=== PATIENT | female | born 1965 | race Caucasian/White ===

== ENCOUNTER 2020-10-02 16:46 | Inpatient (IN) | payer OTHER ==
[2020-10-02] MEDS ORDERED: SODIUM CHLORIDE 0.9% 500 ML INFUS.BAG IV ONE (17:44)
[2020-10-02] MEDS ORDERED: VANCOMYCIN 1 GRAM (PRE-DOCKED) 1,000 MG/250 ML BAG IVPB ONE ×2 (17:46→18:27)
[2020-10-02] MEDS ORDERED: PIPERACILLIN/TAZOB 4.5 GM 4.5 GM in DEXTROSE 5%-WATER 100 ML IVPB ONE (18:00)
[2020-10-02] MEDS ORDERED: PIPERACILLIN/TAZOB 4.5 GM 4.5 GM/100 ML BAG IVPB ONE (18:27)
[2020-10-02] MEDS ORDERED: NOREPINEPHRINE BITARTRATE 16,000 MCG in SODIUM CHLORIDE 484 ML IV SCH (18:45)
[2020-10-02 19:40] LABS: BASO % 0.3 % (0-2.0); EOS % 1.2 % (0-4.5); HEMOGLOBIN 8.8 GM/dL (10.7-15.3); LYMPH % 13.7 % (8-40); MCH 30.4 pg (25.7-33.7); MCHC 31.4 g/dl (32.0-36.0); MEAN PLT VOLUME 8.6 fl (7.5-11.1); MONO % 9.6 % (3.8-10.2); NEUT % 75.2 % (42.8-82.8); PLATELET COUNT 234 K/MM3 (134-434); RBC 2.89 M/mm3 (3.60-5.2); RDW 17.9 % (11.6-15.6); WHITE BLOOD COUNT 11.5 K/mm3 (4.0-10.0)
[2020-10-02 19:47] LABS: INR 1.98 (0.83-1.09); PROTHROMBIN TIME (PATIENT) 23.5 SEC (9.7-13.0)
[2020-10-02 19:49] LABS: ACTIVATED PTT 33.6 SECONDS (25.2-36.5)
[2020-10-02 19:50] LABS: CHLORIDE 98 mmol/L (98-107); SODIUM 136 mmol/L (136-145)
[2020-10-02 19:53] LABS: CALCIUM 9.3 mg/dL (8.5-10.1)
[2020-10-02 19:54] LABS: ALBUMIN 2.1 g/dl (3.4-5.0); ANION GAP 3 MMOL/L (8-16); BLOOD UREA NITROGEN 29.9 mg/dL (7-18); CO2 35 mmol/L (21-32); GLUCOSE,RANDOM 103 mg/dL (74-106)
[2020-10-02 19:57] LABS: CREATININE 0.7 mg/dL (0.55-1.3); SGOT/AST 48 U/L (15-37); SGPT/ALT 35 U/L (13-61)
[2020-10-02 19:59] LABS: BILIRUBIN,TOTAL 0.9 mg/dL (0.2-1)
[2020-10-02 20:00] LABS: ALK PHOS 349 U/L (45-117)
[2020-10-02] MEDS ORDERED: FUROSEMIDE 40 MG/4 ML INJECTABLE VIAL IVPUSH ONE (20:59)
[2020-10-02] MEDS ORDERED: FUROSEMIDE 40 MG/4 ML INJECTABLE VIAL ONE (21:16)
[2020-10-02 22:03] LABS: PH,URINE 5.5 (5.0-8.0); URINE APPEARANCE TURBID; URINE BILIRUBIN NEGATIVE (NEGATIVE); URINE COLOR YELLOW; URINE GLUCOSE (UA) NEGATIVE (NEGATIVE); URINE KETONE NEGATIVE (NEGATIVE); URINE NITRITE NEGATIVE (NEGATIVE); URINE PROTEIN 100 (NEGATIVE); URINE UROBILINOGEN 0.2 mg/dL (0.2-1.0)
[2020-10-02 22:04] LABS: EPI CELLS 213.6 /uL (0-25.1); HYALINE CASTS 748.89 /uL (0-3.1); URINE LEUK ESTERASE 4+ (NEGATIVE); URINE RBC 655.8 /uL (0-23.9); URINE WBC 23269.8 /uL (0-25.8)
[2020-10-02] MEDS: ALBUMIN HUMAN 25% 12.5 GM/50 ML VIAL IVPB SCH (23:41)
[2020-10-03] MEDS: ALBUMIN HUMAN 25% 12.5 GM/50 ML VIAL IVPB SCH ×3 (00:25→01:04)
[2020-10-03] MEDS ORDERED: APIXABAN 5 MG TABLET ONE (00:37)
[2020-10-03] MEDS: APIXABAN 5 MG TABLET PO SCH ×3 (01:04→21:16)
[2020-10-03] MEDS ORDERED: PIPERACILLIN/TAZOB 4.5 GM 4.5 GM in DEXTROSE 5%-WATER 100 ML IVPB SCH (02:00)
[2020-10-03] MEDS ORDERED: NOREPINEPHRINE BITARTRATE 16,000 MCG in SODIUM CHLORIDE 484 ML IV SCH (02:00)
[2020-10-03] MEDS: MAG HYDROX/ALH/SMC/DPHA/LIDO 240 ML MOUTHWASH MM SCH ×4 (02:53→18:07)
[2020-10-03] MEDS ORDERED: LORazepam 2 MG/ML SDV VIAL IVPUSH ONE (03:16)
[2020-10-03] MEDS: NOREPINEPHRINE NS PREMIX 16,000 MCG/500 ML BAG IVPB SCH (03:17)
[2020-10-03] MEDS: INSULIN SLIDING SCALE (NOVOLOG) 1 VIAL SQ SCH ×3 (06:31→17:53)
[2020-10-03] MEDS ORDERED: DEXTROSE 50%-WATER - 25 GM/50 ML VIAL IVPUSH ONE (06:47)
[2020-10-03] MEDS ORDERED: DEXTROSE 50%-WATER 25 GM/50 ML DISP.SYRIN ONE (06:51)
[2020-10-03 07:43] LABS: BASO % 0.4 % (0-2.0); EOS % 1.6 % (0-4.5); HEMATOCRIT 26.6 % (32.4-45.2); HEMOGLOBIN 8.5 GM/dL (10.7-15.3); LYMPH % 16.3 % (8-40); MCH 30.5 pg (25.7-33.7); MCHC 32.2 g/dl (32.0-36.0); MEAN CELL VOLUME 94.8 fl (80-96); MEAN PLT VOLUME 8.8 fl (7.5-11.1); MONO % 8.2 % (3.8-10.2); NEUT % 73.5 % (42.8-82.8); PLATELET COUNT 286 K/MM3 (134-434); RDW 17.4 % (11.6-15.6); WHITE BLOOD COUNT 11.9 K/mm3 (4.0-10.0)
[2020-10-03 08:08] LABS: POTASSIUM 4.8 mmol/L (3.5-5.1)
[2020-10-03 08:11] LABS: ALBUMIN 2.9 g/dl (3.4-5.0); CALCIUM 9.6 mg/dL (8.5-10.1)
[2020-10-03 08:12] LABS: BLOOD UREA NITROGEN 33.2 mg/dL (7-18); MAGNESIUM 1.7 mg/dL (1.8-2.4)
[2020-10-03 08:15] LABS: PHOSPHOROUS 3.5 mg/dL (2.5-4.9)
[2020-10-03 08:16] LABS: BILIRUBIN,TOTAL 1.1 mg/dL (0.2-1); TOT PROT 6.2 g/dl (6.4-8.2)
[2020-10-03] MEDS ORDERED: PT OWN MED DRAWER 7, Y5N ONE ×5 (09:40→18:04)
[2020-10-03] MEDS ORDERED: VANCOMYCIN 1 GM in D5W (PRE-DOCKED) 1,000 MG/250 ML IVPB SCH (10:00)
[2020-10-03] MEDS: MUPIROCIN 2% TOPICAL OINTMENT FOR DECOLONIZATION NS SCH ×2 (10:56→21:16)
[2020-10-03] MEDS: ALBUTEROL SO4 2.5/IPRATROPIUM 0.5 INH SOL 3 ML VIAL.NEB. NEB SCH ×2 (12:36→15:01)
[2020-10-03] MEDS: FOLIC ACID 1 MG TABLET (FP) GT SCH (13:11)
[2020-10-03] MEDS: LEVOTHYROXINE NA 25 MCG TABLET (FP) PO SCH (13:11)
[2020-10-03] MEDS: FERROUS SO4 300 MG/5 ML ORAL SOLN UNIT DOSE CUPS GT SCH ×2 (13:22→21:16)
[2020-10-03] MEDS: FAMOTIDINE 40 MG/5 ML ORAL SUSPENSION PEG SCH (13:23)
[2020-10-03] MEDS: GABAPENTIN 250 MG/5 ML ORAL SOLUTION, 470 ML BOTTLE PO SCH ×2 (13:45→21:33)
[2020-10-03] MEDS: VANCOMYCIN 1 GRAM (PRE-DOCKED) 1,000 MG/250 ML BAG IVPB SCH (14:15)
[2020-10-03] MEDS: MIDAZOLAM 100 MG/100 ML MG IVPB SCH (14:42)
[2020-10-03] MEDS: CEFTAZIDIME PENTAHYDRATE 1 GM in DEXTROSE 5%-WATER - 50 ML IVPB SCH ×2 (16:06→22:55)
[2020-10-03] MEDS ORDERED: DEXTROSE 5%-0.45% SALINE 1,000 ML IV SCH (17:30)
[2020-10-03] MEDS: MIDODRINE HCL 2.5 MG TABLET PO SCH (17:57)
[2020-10-03] MEDS: QUEtiapine FUMARATE 25 MG TABLET PO SCH (21:16)
[2020-10-03] MEDS: AMANTADINE HCL 100 MG TABLET PO SCH (21:17)
[2020-10-03] MEDS: CHLORHEXIDINE GLUCONATE 4% CLEANSER FOR DECOLONIZATION TP SCH (21:33)
[2020-10-03] MEDS: PIPERACILLIN/TAZOB 4.5 GM 4.5 GM in DEXTROSE 5%-WATER 100 ML IVPB SCH ×2 (22:55→22:56)
[2020-10-04] MEDS: VANCOMYCIN 1 GRAM (PRE-DOCKED) 1,000 MG/250 ML BAG IVPB SCH ×2 (01:11→14:15)
[2020-10-04] MEDS: CEFTAZIDIME PENTAHYDRATE 1 GM in DEXTROSE 5%-WATER - 50 ML IVPB SCH ×3 (01:11→17:04)
[2020-10-04] MEDS: MAG HYDROX/ALH/SMC/DPHA/LIDO 240 ML MOUTHWASH MM SCH ×4 (01:17→17:05)
[2020-10-04] MEDS: NOREPINEPHRINE NS PREMIX 16,000 MCG/500 ML BAG IVPB SCH (03:00)
[2020-10-04] MEDS: INSULIN SLIDING SCALE (NOVOLOG) 1 VIAL SQ SCH ×3 (06:24→16:42)
[2020-10-04] MEDS: LEVOTHYROXINE NA 25 MCG TABLET (FP) PO SCH (06:24)
[2020-10-04 07:32] LABS: BASO % 0.3 % (0-2.0); EOS % 3.1 % (0-4.5); HEMATOCRIT 29.1 % (32.4-45.2); HEMOGLOBIN 9.3 GM/dL (10.7-15.3); LYMPH % 14.2 % (8-40); MCH 30.2 pg (25.7-33.7); MEAN CELL VOLUME 94.4 fl (80-96); MONO % 9.9 % (3.8-10.2); NEUT % 72.5 % (42.8-82.8); PLATELET COUNT 350 K/MM3 (134-434); RBC 3.09 M/mm3 (3.60-5.2); RDW 17.3 % (11.6-15.6); WHITE BLOOD COUNT 11.7 K/mm3 (4.0-10.0)
[2020-10-04 08:00] LABS: POTASSIUM 4.3 mmol/L (3.5-5.1)
[2020-10-04] MEDS: ALBUTEROL SO4 2.5/IPRATROPIUM 0.5 INH SOL 3 ML VIAL.NEB. NEB SCH ×4 (08:00→20:30)
[2020-10-04 08:10] LABS: CALCIUM 9.3 mg/dL (8.5-10.1)
[2020-10-04 08:11] LABS: ALBUMIN 2.6 g/dl (3.4-5.0); BLOOD UREA NITROGEN 37.8 mg/dL (7-18); MAGNESIUM 1.9 mg/dL (1.8-2.4)
[2020-10-04 08:14] LABS: CREATININE 1.3 mg/dL (0.55-1.3); PHOSPHOROUS 4.2 mg/dL (2.5-4.9)
[2020-10-04 08:15] LABS: BILIRUBIN,TOTAL 1.2 mg/dL (0.2-1); TOT PROT 6.1 g/dl (6.4-8.2)
[2020-10-04] MEDS ORDERED: PT OWN MED DRAWER 7, Y5N ONE ×2 (10:07→16:53)
[2020-10-04] MEDS: FOLIC ACID 1 MG TABLET (FP) GT SCH (10:35)
[2020-10-04] MEDS: FERROUS SO4 300 MG/5 ML ORAL SOLN UNIT DOSE CUPS GT SCH ×2 (10:35→21:26)
[2020-10-04] MEDS: MIDODRINE HCL 2.5 MG TABLET PO SCH (10:35)
[2020-10-04] MEDS: APIXABAN 5 MG TABLET PO SCH ×2 (10:35→21:26)
[2020-10-04] MEDS: FAMOTIDINE 40 MG/5 ML ORAL SUSPENSION PEG SCH (10:35)
[2020-10-04] MEDS: MUPIROCIN 2% TOPICAL OINTMENT FOR DECOLONIZATION NS SCH ×2 (10:36→21:25)
[2020-10-04] MEDS: AMANTADINE HCL 100 MG TABLET PO SCH ×2 (10:36→21:27)
[2020-10-04] MEDS: GABAPENTIN 250 MG/5 ML ORAL SOLUTION, 470 ML BOTTLE PO SCH ×2 (10:48→21:26)
[2020-10-04] MEDS: BANATROL PLUS POWDER PACKET PO SCH ×2 (15:30→21:25)
[2020-10-04] MEDS: MIDODRINE HCL 5 MG TABLET PO SCH ×2 (15:30→17:05)
[2020-10-04] MEDS: MIDAZOLAM 100 MG/100 ML MG IVPB SCH (19:15)
[2020-10-04] MEDS: CHLORHEXIDINE GLUCONATE 4% CLEANSER FOR DECOLONIZATION TP SCH (21:25)
[2020-10-04] MEDS: QUEtiapine FUMARATE 25 MG TABLET PO SCH (21:26)
[2020-10-05] MEDS: MAG HYDROX/ALH/SMC/DPHA/LIDO 240 ML MOUTHWASH MM SCH ×4 (00:06→17:51)
[2020-10-05] MEDS: VANCOMYCIN 1 GRAM (PRE-DOCKED) 1,000 MG/250 ML BAG IVPB SCH ×2 (00:07→13:07)
[2020-10-05] MEDS: CEFTAZIDIME PENTAHYDRATE 1 GM in DEXTROSE 5%-WATER - 50 ML IVPB SCH ×3 (01:55→17:51)
[2020-10-05] MEDS: LEVOTHYROXINE NA 25 MCG TABLET (FP) PO SCH (06:12)
[2020-10-05] MEDS: BANATROL PLUS POWDER PACKET PO SCH ×3 (06:12→21:46)
[2020-10-05] MEDS: INSULIN SLIDING SCALE (NOVOLOG) 1 VIAL SQ SCH ×3 (06:13→17:46)
[2020-10-05 07:15] LABS: BASO % 0.3 % (0-2.0); EOS % 7.2 % (0-4.5); HEMOGLOBIN 8.8 GM/dL (10.7-15.3); LYMPH % 13.7 % (8-40); MCH 31.2 pg (25.7-33.7); MCHC 33.7 g/dl (32.0-36.0); MEAN CELL VOLUME 92.6 fl (80-96); MEAN PLT VOLUME 8.8 fl (7.5-11.1); MONO % 9.5 % (3.8-10.2); NEUT % 69.3 % (42.8-82.8); PLATELET COUNT 290 K/MM3 (134-434); RDW 17.5 % (11.6-15.6); WHITE BLOOD COUNT 7.7 K/mm3 (4.0-10.0)
[2020-10-05 07:53] LABS: POTASSIUM 3.9 mmol/L (3.5-5.1)
[2020-10-05 07:55] LABS: CALCIUM 8.2 mg/dL (8.5-10.1)
[2020-10-05 07:56] LABS: BLOOD UREA NITROGEN 36.6 mg/dL (7-18); MAGNESIUM 1.6 mg/dL (1.8-2.4)
[2020-10-05 07:59] LABS: CREATININE 1.3 mg/dL (0.55-1.3); PHOSPHOROUS 3.9 mg/dL (2.5-4.9)
[2020-10-05 08:00] LABS: BILIRUBIN,TOTAL 0.7 mg/dL (0.2-1)
[2020-10-05] MEDS: ALBUTEROL SO4 2.5/IPRATROPIUM 0.5 INH SOL 3 ML VIAL.NEB. NEB SCH ×4 (08:00→21:28)
[2020-10-05 08:01] LABS: TOT PROT 5.2 g/dl (6.4-8.2)
[2020-10-05] MEDS: NOREPINEPHRINE NS PREMIX 16,000 MCG/500 ML BAG IVPB SCH (09:13)
[2020-10-05] MEDS ORDERED: PT OWN MED DRAWER 7, Y5N ONE ×3 (09:18→17:47)
[2020-10-05] MEDS: FAMOTIDINE 40 MG/5 ML ORAL SUSPENSION PEG SCH (09:22)
[2020-10-05] MEDS: MIDODRINE HCL 5 MG TABLET PO SCH ×3 (09:22→17:51)
[2020-10-05] MEDS: APIXABAN 5 MG TABLET PO SCH ×2 (09:22→21:46)
[2020-10-05] MEDS: FOLIC ACID 1 MG TABLET (FP) GT SCH (09:22)
[2020-10-05] MEDS: AMANTADINE HCL 100 MG TABLET PO SCH ×2 (09:23→21:46)
[2020-10-05] MEDS: FERROUS SO4 300 MG/5 ML ORAL SOLN UNIT DOSE CUPS GT SCH ×2 (09:23→21:46)
[2020-10-05] MEDS: MUPIROCIN 2% TOPICAL OINTMENT FOR DECOLONIZATION NS SCH ×2 (09:23→21:27)
[2020-10-05] MEDS: GABAPENTIN 250 MG/5 ML ORAL SOLUTION, 470 ML BOTTLE PO SCH ×2 (09:27→21:45)
[2020-10-05] MEDS: MIDAZOLAM 100 MG/100 ML MG IVPB SCH (16:16)
[2020-10-05] MEDS: CHLORHEXIDINE GLUCONATE 4% CLEANSER FOR DECOLONIZATION TP SCH (21:27)
[2020-10-05] MEDS: QUEtiapine FUMARATE 25 MG TABLET PO SCH (21:45)
[2020-10-06] MEDS: NOREPINEPHRINE NS PREMIX 16,000 MCG/500 ML BAG IVPB SCH
[2020-10-06] MEDS: VANCOMYCIN 1 GRAM (PRE-DOCKED) 1,000 MG/250 ML BAG IVPB SCH ×2 (00:08→21:04)
[2020-10-06] MEDS: MAG HYDROX/ALH/SMC/DPHA/LIDO 240 ML MOUTHWASH MM SCH ×4 (00:08→17:38)
[2020-10-06] MEDS: CEFTAZIDIME PENTAHYDRATE 1 GM in DEXTROSE 5%-WATER - 50 ML IVPB SCH ×3 (01:10→21:04)
[2020-10-06] MEDS: BANATROL PLUS POWDER PACKET PO SCH ×3 (05:31→21:02)
[2020-10-06] MEDS: LEVOTHYROXINE NA 25 MCG TABLET (FP) PO SCH (06:24)
[2020-10-06] MEDS: INSULIN SLIDING SCALE (NOVOLOG) 1 VIAL SQ SCH ×3 (06:24→17:05)
[2020-10-06 07:40] LABS: BASO % 0.3 % (0-2.0); EOS % 7.5 % (0-4.5); HEMATOCRIT 25.9 % (32.4-45.2); HEMOGLOBIN 8.6 GM/dL (10.7-15.3); LYMPH % 10.6 % (8-40); MCH 30.7 pg (25.7-33.7); MCHC 33.1 g/dl (32.0-36.0); MEAN CELL VOLUME 92.9 fl (80-96); MEAN PLT VOLUME 9.2 fl (7.5-11.1); MONO % 10.4 % (3.8-10.2); NEUT % 71.2 % (42.8-82.8); PLATELET COUNT 335 K/MM3 (134-434); RBC 2.79 M/mm3 (3.60-5.2); RDW 17.1 % (11.6-15.6); WHITE BLOOD COUNT 10.2 K/mm3 (4.0-10.0)
[2020-10-06 08:00] LABS: POTASSIUM 4.1 mmol/L (3.5-5.1)
[2020-10-06 08:05] LABS: ALBUMIN 1.9 g/dl (3.4-5.0); BLOOD UREA NITROGEN 38.5 mg/dL (7-18); CALCIUM 8.5 mg/dL (8.5-10.1)
[2020-10-06 08:08] LABS: CREATININE 1.3 mg/dL (0.55-1.3)
[2020-10-06] MEDS: ALBUTEROL SO4 2.5/IPRATROPIUM 0.5 INH SOL 3 ML VIAL.NEB. NEB SCH ×4 (08:08→20:00)
[2020-10-06 08:10] LABS: BILIRUBIN,TOTAL 1.6 mg/dL (0.2-1); TOT PROT 5.3 g/dl (6.4-8.2)
[2020-10-06] MEDS ORDERED: PT OWN MED DRAWER 7, Y5N ONE ×7 (10:29→20:47)
[2020-10-06] MEDS: AMANTADINE HCL 100 MG TABLET PO SCH ×2 (10:45→21:03)
[2020-10-06] MEDS: APIXABAN 5 MG TABLET PO SCH ×2 (10:47→21:02)
[2020-10-06] MEDS: FERROUS SO4 300 MG/5 ML ORAL SOLN UNIT DOSE CUPS GT SCH ×2 (10:47→21:03)
[2020-10-06] MEDS: FOLIC ACID 1 MG TABLET (FP) GT SCH (10:47)
[2020-10-06] MEDS: MIDODRINE HCL 5 MG TABLET PO SCH ×3 (10:48→17:37)
[2020-10-06] MEDS: GABAPENTIN 250 MG/5 ML ORAL SOLUTION, 470 ML BOTTLE PO SCH ×2 (10:52→21:06)
[2020-10-06] MEDS ORDERED: SODIUM CHLORIDE 1,000 ML IV STA (11:13)
[2020-10-06] MEDS: FAMOTIDINE 40 MG/5 ML ORAL SUSPENSION PEG SCH (14:41)
[2020-10-06] MEDS: MIDAZOLAM 100 MG/100 ML MG IVPB SCH (14:43)
[2020-10-06] MEDS: MUPIROCIN 2% TOPICAL OINTMENT FOR DECOLONIZATION NS SCH ×2 (14:47→21:04)
[2020-10-06] MEDS: QUEtiapine FUMARATE 25 MG TABLET PO SCH (21:02)
[2020-10-06] MEDS: CHLORHEXIDINE GLUCONATE 4% CLEANSER FOR DECOLONIZATION TP SCH (21:03)
[2020-10-06] MEDS: CHOLESTYRAMINE/ASPARTAME 4 GM PACKET PO SCH (21:03)
[2020-10-07] MEDS: MAG HYDROX/ALH/SMC/DPHA/LIDO 240 ML MOUTHWASH MM SCH ×5 (01:06→23:43)
[2020-10-07] MEDS: CEFTAZIDIME PENTAHYDRATE 1 GM in DEXTROSE 5%-WATER - 50 ML IVPB SCH ×3 (01:09→18:45)
[2020-10-07] MEDS: NOREPINEPHRINE NS PREMIX 16,000 MCG/500 ML BAG IVPB SCH (03:45)
[2020-10-07] MEDS: BANATROL PLUS POWDER PACKET PO SCH ×3 (05:07→22:38)
[2020-10-07] MEDS: INSULIN SLIDING SCALE (NOVOLOG) 1 VIAL SQ SCH ×3 (06:07→18:57)
[2020-10-07] MEDS: LEVOTHYROXINE NA 25 MCG TABLET (FP) PO SCH (06:07)
[2020-10-07 06:59] LABS: BASO % 0.2 % (0-2.0); EOS % 6.9 % (0-4.5); HEMATOCRIT 24.7 % (32.4-45.2); HEMOGLOBIN 7.9 GM/dL (10.7-15.3); LYMPH % 11.7 % (8-40); MCH 30.5 pg (25.7-33.7); MCHC 32.1 g/dl (32.0-36.0); MEAN PLT VOLUME 9.1 fl (7.5-11.1); NEUT % 70.2 % (42.8-82.8); PLATELET COUNT 300 K/MM3 (134-434); RDW 17.8 % (11.6-15.6); WHITE BLOOD COUNT 8.9 K/mm3 (4.0-10.0)
[2020-10-07 07:50] LABS: POTASSIUM 4.5 mmol/L (3.5-5.1)
[2020-10-07 08:25] LABS: ALBUMIN 2.1 g/dl (3.4-5.0); CALCIUM 9.1 mg/dL (8.5-10.1)
[2020-10-07 08:26] LABS: BLOOD UREA NITROGEN 38.6 mg/dL (7-18); MAGNESIUM 1.9 mg/dL (1.8-2.4)
[2020-10-07 08:28] LABS: CREATININE 1.4 mg/dL (0.55-1.3); PHOSPHOROUS 4.8 mg/dL (2.5-4.9)
[2020-10-07 08:29] LABS: BILIRUBIN,TOTAL 0.5 mg/dL (0.2-1); TOT PROT 5.9 g/dl (6.4-8.2)
[2020-10-07] MEDS ORDERED: PT OWN MED DRAWER 7, Y5N ONE ×5 (08:29→22:31)
[2020-10-07] MEDS: ALBUTEROL SO4 2.5/IPRATROPIUM 0.5 INH SOL 3 ML VIAL.NEB. NEB SCH ×4 (08:44→20:10)
[2020-10-07] MEDS: AMANTADINE HCL 100 MG TABLET PO SCH ×2 (09:53→22:40)
[2020-10-07] MEDS: MIDODRINE HCL 5 MG TABLET PO SCH ×3 (09:53→18:45)
[2020-10-07] MEDS: FERROUS SO4 300 MG/5 ML ORAL SOLN UNIT DOSE CUPS GT SCH ×2 (09:53→22:39)
[2020-10-07] MEDS: APIXABAN 5 MG TABLET PO SCH ×2 (09:53→22:39)
[2020-10-07] MEDS: CHOLESTYRAMINE/ASPARTAME 4 GM PACKET PO SCH (09:53)
[2020-10-07] MEDS: FOLIC ACID 1 MG TABLET (FP) GT SCH (09:53)
[2020-10-07] MEDS: GABAPENTIN 250 MG/5 ML ORAL SOLUTION, 470 ML BOTTLE PO SCH ×2 (09:54→22:39)
[2020-10-07] MEDS: MUPIROCIN 2% TOPICAL OINTMENT FOR DECOLONIZATION NS SCH ×2 (09:55→22:38)
[2020-10-07] MEDS: FAMOTIDINE 40 MG/5 ML ORAL SUSPENSION PEG SCH (09:55)
[2020-10-07] MEDS ORDERED: MAGNESIUM 1GM/D5W 100ML - 100 ML IVPB IVPB ONE (13:45)
[2020-10-07] MEDS ORDERED: ALBUMIN HUMAN 25% 12.5 GM/50 ML VIAL IVPB SCH (17:00)
[2020-10-07] MEDS ORDERED: ALBUMIN HUMAN 25% 100 ML VIAL IVPB ONE (18:30)
[2020-10-07] MEDS: MIDAZOLAM 100 MG/100 ML MG IVPB SCH (20:00)
[2020-10-07] MEDS ORDERED: FUROSEMIDE 40 MG/4 ML INJECTABLE VIAL IVPUSH ONE (20:22)
[2020-10-07 21:49] LABS: EPI CELLS 4 /uL (0-25.1); HYALINE CASTS 2 /uL (0-3.1); PH,URINE 5.5 (5.0-8.0); URINE APPEARANCE TURBID; URINE BACTERIA 133 /uL (0-1359); URINE BILIRUBIN NEGATIVE (NEGATIVE); URINE COLOR YELLOW; URINE GLUCOSE (UA) NEGATIVE (NEGATIVE); URINE KETONE NEGATIVE (NEGATIVE); URINE LEUK ESTERASE 3+ (NEGATIVE); URINE NITRITE NEGATIVE (NEGATIVE); URINE PROTEIN 1+ (NEGATIVE); URINE RBC 10 /uL (0-23.9); URINE UROBILINOGEN 0.2 mg/dL (0.2-1.0); URINE WBC 850 /uL (0-25.8)
[2020-10-07] MEDS: QUEtiapine FUMARATE 25 MG TABLET PO SCH (22:39)
[2020-10-07] MEDS: CHLORHEXIDINE GLUCONATE 4% CLEANSER FOR DECOLONIZATION TP SCH (22:39)
[2020-10-08] MEDS ORDERED: ACETAMINOPHEN 1000 MG/100 ML VIAL (NON FORMULARY) IVPB ONE (01:31)
[2020-10-08] MEDS: CEFTAZIDIME PENTAHYDRATE 1 GM in DEXTROSE 5%-WATER - 50 ML IVPB SCH ×3 (02:53→17:23)
[2020-10-08] MEDS ORDERED: SODIUM CHLORIDE 500 ML IV STA ×2 (05:04→11:31)
[2020-10-08] MEDS: LEVOTHYROXINE NA 25 MCG TABLET (FP) PO SCH (06:17)
[2020-10-08] MEDS: BANATROL PLUS POWDER PACKET PO SCH ×3 (06:17→21:16)
[2020-10-08] MEDS: MAG HYDROX/ALH/SMC/DPHA/LIDO 240 ML MOUTHWASH MM SCH ×4 (06:17→17:34)
[2020-10-08 07:21] LABS: BASO % 0.4 % (0-2.0); EOS % 3.1 % (0-4.5); HEMATOCRIT 20.9 % (32.4-45.2); LYMPH % 12.1 % (8-40); MCH 30.5 pg (25.7-33.7); MCHC 32.5 g/dl (32.0-36.0); MEAN CELL VOLUME 93.9 fl (80-96); MONO % 14.4 % (3.8-10.2); PLATELET COUNT 302 K/MM3 (134-434); RBC 2.22 M/mm3 (3.60-5.2); RDW 17.5 % (11.6-15.6); WHITE BLOOD COUNT 11.6 K/mm3 (4.0-10.0)
[2020-10-08 07:33] LABS: POTASSIUM 4.6 mmol/L (3.5-5.1)
[2020-10-08 07:40] LABS: CALCIUM 9.1 mg/dL (8.5-10.1)
[2020-10-08 07:41] LABS: ALBUMIN 2.2 g/dl (3.4-5.0); BLOOD UREA NITROGEN 42.5 mg/dL (7-18)
[2020-10-08 07:44] LABS: CREATININE 1.5 mg/dL (0.55-1.3)
[2020-10-08 07:45] LABS: BILIRUBIN,TOTAL 0.6 mg/dL (0.2-1)
[2020-10-08 07:46] LABS: TOT PROT 5.6 g/dl (6.4-8.2)
[2020-10-08] MEDS: INSULIN SLIDING SCALE (NOVOLOG) 1 VIAL SQ SCH ×3 (07:47→17:18)
[2020-10-08] MEDS: ALBUTEROL SO4 2.5/IPRATROPIUM 0.5 INH SOL 3 ML VIAL.NEB. NEB SCH ×4 (08:45→20:25)
[2020-10-08 08:46] LABS: HEMOGLOBIN 6.8 GM/dL (10.7-15.3)
[2020-10-08] MEDS ORDERED: PT OWN MED DRAWER 7, Y5N ONE ×4 (09:37→21:26)
[2020-10-08] MEDS: APIXABAN 5 MG TABLET PO SCH (09:38)
[2020-10-08] MEDS: FOLIC ACID 1 MG TABLET (FP) GT SCH (09:39)
[2020-10-08] MEDS: FERROUS SO4 300 MG/5 ML ORAL SOLN UNIT DOSE CUPS GT SCH ×2 (09:39→21:17)
[2020-10-08] MEDS: FAMOTIDINE 40 MG/5 ML ORAL SUSPENSION PEG SCH (09:42)
[2020-10-08] MEDS: MIDODRINE HCL 5 MG TABLET PO SCH ×3 (09:43→17:24)
[2020-10-08] MEDS: AMANTADINE HCL 100 MG TABLET PO SCH ×2 (09:43→21:17)
[2020-10-08] MEDS ORDERED: FUROSEMIDE 40 MG/4 ML INJECTABLE VIAL IVPUSH SCH (10:00)
[2020-10-08] MEDS ORDERED: ENOXAPARIN NA (PORCINE) 40 MG/0.4 ML DISP.SYRIN SQ ONE (11:32)
[2020-10-08] MEDS: GABAPENTIN 250 MG/5 ML ORAL SOLUTION, 470 ML BOTTLE PO SCH ×2 (13:18→21:18)
[2020-10-08 14:45] VITALS: BMI 25.4
[2020-10-08 20:07] LABS: HEP B CORE AB, TOT Negative (Negative)
[2020-10-08] MEDS: QUEtiapine FUMARATE 25 MG TABLET PO SCH (21:17)
[2020-10-08] MEDS: CHLORHEXIDINE GLUCONATE 4% CLEANSER FOR DECOLONIZATION TP SCH (21:17)
[2020-10-09] MEDS: MAG HYDROX/ALH/SMC/DPHA/LIDO 240 ML MOUTHWASH MM SCH ×4 (00:33→17:53)
[2020-10-09] MEDS: NYSTATIN 100,000 UNIT/GM TOPICAL CREAM 15 GM TUBE TP SCH ×4 (00:33→17:53)
[2020-10-09] MEDS ORDERED: HALOPERIDOL LACTATE 5 MG/ML IM ONE (01:30)
[2020-10-09] MEDS: BANATROL PLUS POWDER PACKET PO SCH ×2 (05:31→13:17)
[2020-10-09] MEDS: LEVOTHYROXINE NA 25 MCG TABLET (FP) PO SCH (06:22)
[2020-10-09] MEDS: INSULIN SLIDING SCALE (NOVOLOG) 1 VIAL SQ SCH ×3 (06:22→16:59)
[2020-10-09 07:32] LABS: BASO % 0.3 % (0-2.0); EOS % 6.9 % (0-4.5); HEMATOCRIT 30.7 % (32.4-45.2); HEMOGLOBIN 10.2 GM/dL (10.7-15.3); LYMPH % 10.1 % (8-40); MCH 30.5 pg (25.7-33.7); MCHC 33.4 g/dl (32.0-36.0); MEAN CELL VOLUME 91.5 fl (80-96); MEAN PLT VOLUME 8.9 fl (7.5-11.1); MONO % 15.3 % (3.8-10.2); NEUT % 67.4 % (42.8-82.8); PLATELET COUNT 332 K/MM3 (134-434); RBC 3.35 M/mm3 (3.60-5.2); RDW 16.6 % (11.6-15.6); WHITE BLOOD COUNT 9.2 K/mm3 (4.0-10.0)
[2020-10-09 07:45] LABS: POTASSIUM 5.1 mmol/L (3.5-5.1)
[2020-10-09 07:47] LABS: CALCIUM 9.6 mg/dL (8.5-10.1)
[2020-10-09 07:48] LABS: ALBUMIN 2.2 g/dl (3.4-5.0); BLOOD UREA NITROGEN 46.1 mg/dL (7-18)
[2020-10-09 07:50] LABS: CREATININE 1.6 mg/dL (0.55-1.3)
[2020-10-09 07:52] LABS: BILIRUBIN,TOTAL 0.6 mg/dL (0.2-1); TOT PROT 6.2 g/dl (6.4-8.2)
[2020-10-09] MEDS ORDERED: PT OWN MED DRAWER 7, Y5N ONE ×3 (09:46→23:10)
[2020-10-09] MEDS: FOLIC ACID 1 MG TABLET (FP) GT SCH (09:47)
[2020-10-09] MEDS: GABAPENTIN 250 MG/5 ML ORAL SOLUTION, 470 ML BOTTLE PO SCH ×2 (09:47→23:03)
[2020-10-09] MEDS: FERROUS SO4 300 MG/5 ML ORAL SOLN UNIT DOSE CUPS GT SCH ×2 (09:47→23:02)
[2020-10-09] MEDS: AMANTADINE HCL 100 MG TABLET PO SCH ×2 (09:48→23:06)
[2020-10-09] MEDS: FAMOTIDINE 40 MG/5 ML ORAL SUSPENSION PEG SCH (09:48)
[2020-10-09] MEDS: MIDODRINE HCL 5 MG TABLET PO SCH ×3 (09:50→23:02)
[2020-10-09 11:39] LABS: MAGNESIUM 2.3 mg/dL (1.8-2.4)
[2020-10-09] MEDS: ALBUTEROL SO4 2.5/IPRATROPIUM 0.5 INH SOL 3 ML VIAL.NEB. NEB SCH (20:37)
[2020-10-09] MEDS ORDERED: APIXABAN 5 MG TABLET PO SCH (22:00)
[2020-10-09] MEDS ORDERED: BANATROL PLUS POWDER PACKET PO SCH (22:00)
[2020-10-09] MEDS ORDERED: CHLORHEXIDINE GLUCONATE 4% CLEANSER FOR DECOLONIZATION TP SCH (22:00)
[2020-10-09] MEDS: APIXABAN 5 MG TABLET PO SCH (23:02)
[2020-10-09] MEDS: QUEtiapine FUMARATE 25 MG TABLET PO SCH (23:04)
[2020-10-10] MEDS: MAG HYDROX/ALH/SMC/DPHA/LIDO 240 ML MOUTHWASH MM SCH ×6 (00:04→23:40)
[2020-10-10] MEDS: NYSTATIN 100,000 UNIT/GM TOPICAL CREAM 15 GM TUBE TP SCH ×5 (00:05→23:40)
[2020-10-10] MEDS ORDERED: VANCOMYCIN 1 GRAM (PRE-DOCKED) 1,000 MG/250 ML BAG IVPB SCH (01:00)
[2020-10-10] MEDS: INSULIN SLIDING SCALE (NOVOLOG) 1 VIAL SQ SCH ×3 (07:09→18:56)
[2020-10-10] MEDS: LEVOTHYROXINE NA 25 MCG TABLET (FP) PO SCH (07:09)
[2020-10-10] MEDS: ALBUTEROL SO4 2.5/IPRATROPIUM 0.5 INH SOL 3 ML VIAL.NEB. NEB SCH ×4 (08:35→20:18)
[2020-10-10 08:51] LABS: BASO % 0.6 % (0-2.0); EOS % 6.4 % (0-4.5); HEMATOCRIT 29.5 % (32.4-45.2); HEMOGLOBIN 9.8 GM/dL (10.7-15.3); LYMPH % 14.9 % (8-40); MCH 30.2 pg (25.7-33.7); MCHC 33.2 g/dl (32.0-36.0); MEAN PLT VOLUME 8.5 fl (7.5-11.1); MONO % 18.4 % (3.8-10.2); NEUT % 59.7 % (42.8-82.8); PLATELET COUNT 397 K/MM3 (134-434); RBC 3.25 M/mm3 (3.60-5.2); RDW 16.9 % (11.6-15.6); WHITE BLOOD COUNT 8.4 K/mm3 (4.0-10.0)
[2020-10-10 09:08] LABS: POTASSIUM 5.3 mmol/L (3.5-5.1)
[2020-10-10 09:19] LABS: BLOOD UREA NITROGEN 50.5 mg/dL (7-18); CALCIUM 10.4 mg/dL (8.5-10.1)
[2020-10-10 09:20] LABS: ALBUMIN 2.1 g/dl (3.4-5.0); CREATININE 1.8 mg/dL (0.55-1.3); TOT PROT 6.2 g/dl (6.4-8.2)
[2020-10-10 09:21] LABS: BILIRUBIN,TOTAL 0.5 mg/dL (0.2-1)
[2020-10-10] MEDS ORDERED: FAMOTIDINE 40 MG/5 ML ORAL SUSPENSION PEG SCH (10:00)
[2020-10-10] MEDS ORDERED: PT OWN MED DRAWER 7, Y5N ONE ×3 (11:40→23:34)
[2020-10-10] MEDS: FERROUS SO4 300 MG/5 ML ORAL SOLN UNIT DOSE CUPS GT SCH ×2 (11:57→23:37)
[2020-10-10] MEDS: FOLIC ACID 1 MG TABLET (FP) GT SCH (11:57)
[2020-10-10] MEDS: MIDODRINE HCL 5 MG TABLET PO SCH ×3 (11:57→18:58)
[2020-10-10] MEDS: AMANTADINE HCL 100 MG TABLET PO SCH ×2 (12:03→23:38)
[2020-10-10] MEDS: FAMOTIDINE 40 MG/5 ML ORAL SUSPENSION PEG SCH (12:03)
[2020-10-10] MEDS: APIXABAN 5 MG TABLET PO SCH ×2 (12:03→23:37)
[2020-10-10] MEDS: GABAPENTIN 250 MG/5 ML ORAL SOLUTION, 470 ML BOTTLE PO SCH ×2 (12:05→23:37)
[2020-10-10] MEDS: FUROSEMIDE 40 MG TABLET (FP) GT SCH (15:14)
[2020-10-10] MEDS: QUEtiapine FUMARATE 25 MG TABLET PO SCH (23:38)
[2020-10-11] MEDS: LEVOTHYROXINE NA 25 MCG TABLET (FP) PO SCH (06:08)
[2020-10-11] MEDS: MAG HYDROX/ALH/SMC/DPHA/LIDO 240 ML MOUTHWASH MM SCH ×2 (06:08→11:28)
[2020-10-11] MEDS: NYSTATIN 100,000 UNIT/GM TOPICAL CREAM 15 GM TUBE TP SCH ×3 (06:08→18:30)
[2020-10-11] MEDS: INSULIN SLIDING SCALE (NOVOLOG) 1 VIAL SQ SCH ×3 (06:58→18:44)
[2020-10-11] MEDS: ALBUTEROL SO4 2.5/IPRATROPIUM 0.5 INH SOL 3 ML VIAL.NEB. NEB SCH ×4 (07:40→20:45)
[2020-10-11 08:59] LABS: BASO % 0.4 % (0-2.0); EOS % 7.4 % (0-4.5); HEMATOCRIT 29.3 % (32.4-45.2); HEMOGLOBIN 9.5 GM/dL (10.7-15.3); LYMPH % 16.4 % (8-40); MCH 29.9 pg (25.7-33.7); MCHC 32.4 g/dl (32.0-36.0); MEAN CELL VOLUME 92.3 fl (80-96); MEAN PLT VOLUME 8.8 fl (7.5-11.1); NEUT % 55.8 % (42.8-82.8); PLATELET COUNT 391 K/MM3 (134-434); RBC 3.17 M/mm3 (3.60-5.2); RDW 16.7 % (11.6-15.6); WHITE BLOOD COUNT 7.8 K/mm3 (4.0-10.0)
[2020-10-11 09:20] LABS: POTASSIUM 5.2 mmol/L (3.5-5.1)
[2020-10-11] MEDS ORDERED: PT OWN MED DRAWER 7, Y5N ONE ×3 (09:59→20:46)
[2020-10-11 10:07] LABS: ALBUMIN 2.1 g/dl (3.4-5.0); BLOOD UREA NITROGEN 58.4 mg/dL (7-18)
[2020-10-11 10:10] LABS: CALCIUM 10.5 mg/dL (8.5-10.1)
[2020-10-11 10:11] LABS: CREATININE 2.1 mg/dL (0.55-1.3)
[2020-10-11 10:12] LABS: TOT PROT 6.2 g/dl (6.4-8.2)
[2020-10-11] MEDS: FUROSEMIDE 40 MG TABLET (FP) GT SCH (10:20)
[2020-10-11] MEDS: AMANTADINE HCL 100 MG TABLET PO SCH ×2 (10:20→21:03)
[2020-10-11] MEDS: FAMOTIDINE 40 MG/5 ML ORAL SUSPENSION PEG SCH (10:20)
[2020-10-11] MEDS: MIDODRINE HCL 5 MG TABLET PO SCH ×3 (10:20→18:30)
[2020-10-11] MEDS: FOLIC ACID 1 MG TABLET (FP) GT SCH (10:20)
[2020-10-11] MEDS: GABAPENTIN 250 MG/5 ML ORAL SOLUTION, 470 ML BOTTLE PO SCH ×2 (10:20→21:03)
[2020-10-11] MEDS: APIXABAN 5 MG TABLET PO SCH ×2 (10:20→21:03)
[2020-10-11] MEDS: FERROUS SO4 300 MG/5 ML ORAL SOLN UNIT DOSE CUPS GT SCH ×2 (10:20→21:02)
[2020-10-11] MEDS ORDERED: INSULIN (NOVOLOG) ASPART 100 UNITS/ML 10ML VIAL ONE (11:26)
[2020-10-11] MEDS: ESCITALOPRAM OXALATE 5 MG/5 ML GT SCH (13:38)
[2020-10-11] MEDS ORDERED: MELATONIN 5 MG TABLETS PO ONE (20:50)
[2020-10-11] MEDS: QUEtiapine FUMARATE 25 MG TABLET PO SCH (21:02)
[2020-10-12] MEDS: NYSTATIN 100,000 UNIT/GM TOPICAL CREAM 15 GM TUBE TP SCH ×4 (00:48→17:09)
[2020-10-12] MEDS: LEVOTHYROXINE NA 25 MCG TABLET (FP) PO SCH (06:34)
[2020-10-12] MEDS: INSULIN SLIDING SCALE (NOVOLOG) 1 VIAL SQ SCH ×3 (06:35→17:56)
[2020-10-12] MEDS: ALBUTEROL SO4 2.5/IPRATROPIUM 0.5 INH SOL 3 ML VIAL.NEB. NEB SCH ×4 (07:40→20:05)
[2020-10-12] MEDS ORDERED: PT OWN MED DRAWER 7, Y5N ONE ×3 (08:57→21:30)
[2020-10-12] MEDS: FOLIC ACID 1 MG TABLET (FP) GT SCH (09:11)
[2020-10-12] MEDS: FERROUS SO4 300 MG/5 ML ORAL SOLN UNIT DOSE CUPS GT SCH ×2 (09:11→21:42)
[2020-10-12] MEDS: AMANTADINE HCL 100 MG TABLET PO SCH ×2 (09:12→21:44)
[2020-10-12] MEDS: MIDODRINE HCL 5 MG TABLET PO SCH ×3 (09:12→17:09)
[2020-10-12] MEDS: FUROSEMIDE 40 MG TABLET (FP) GT SCH (09:12)
[2020-10-12] MEDS: FAMOTIDINE 40 MG/5 ML ORAL SUSPENSION PEG SCH (09:12)
[2020-10-12] MEDS: ESCITALOPRAM OXALATE 5 MG/5 ML GT SCH (09:13)
[2020-10-12] MEDS: GABAPENTIN 250 MG/5 ML ORAL SOLUTION, 470 ML BOTTLE PO SCH ×2 (09:14→21:42)
[2020-10-12] MEDS: APIXABAN 5 MG TABLET PO SCH ×2 (09:14→21:42)
[2020-10-12 12:59] LABS: BASO % 0.2 % (0-2.0); EOS % 9.6 % (0-4.5); HEMATOCRIT 29.2 % (32.4-45.2); HEMOGLOBIN 9.5 GM/dL (10.7-15.3); LYMPH % 14.1 % (8-40); MCH 30.7 pg (25.7-33.7); MCHC 32.6 g/dl (32.0-36.0); MEAN PLT VOLUME 8.6 fl (7.5-11.1); MONO % 16.8 % (3.8-10.2); NEUT % 59.3 % (42.8-82.8); PLATELET COUNT 379 K/MM3 (134-434); RBC 3.11 M/mm3 (3.60-5.2); RDW 16.9 % (11.6-15.6); WHITE BLOOD COUNT 8.2 K/mm3 (4.0-10.0)
[2020-10-12 13:00] LABS: POTASSIUM 5.6 mmol/L (3.5-5.1)
[2020-10-12 13:04] LABS: ALBUMIN 2.2 g/dl (3.4-5.0)
[2020-10-12 13:05] LABS: BLOOD UREA NITROGEN 63.3 mg/dL (7-18); CALCIUM 10.5 mg/dL (8.5-10.1)
[2020-10-12 13:07] LABS: CREATININE 2.3 mg/dL (0.55-1.3)
[2020-10-12 13:08] LABS: TOT PROT 6.4 g/dl (6.4-8.2)
[2020-10-12 13:11] LABS: BILIRUBIN,TOTAL 0.4 mg/dL (0.2-1)
[2020-10-12] MEDS ORDERED: SODIUM ZIRCONIUM CYCLOSILICATE (LOKELMA) 5 GM PACKET PO ONE (14:15)
[2020-10-12] MEDS: QUEtiapine FUMARATE 25 MG TABLET PO SCH (21:43)
[2020-10-13] MEDS: NYSTATIN 100,000 UNIT/GM TOPICAL CREAM 15 GM TUBE TP SCH ×4 (00:05→18:26)
[2020-10-13] MEDS: INSULIN SLIDING SCALE (NOVOLOG) 1 VIAL SQ SCH ×3 (06:08→18:29)
[2020-10-13] MEDS: LEVOTHYROXINE NA 25 MCG TABLET (FP) PO SCH (06:09)
[2020-10-13] MEDS: ALBUTEROL SO4 2.5/IPRATROPIUM 0.5 INH SOL 3 ML VIAL.NEB. NEB SCH ×4 (07:50→19:50)
[2020-10-13] MEDS ORDERED: PT OWN MED DRAWER 7, Y5N ONE ×2 (11:04→20:36)
[2020-10-13 11:08] LABS: BASO % 0.5 % (0-2.0); EOS % 9.1 % (0-4.5); HEMATOCRIT 29.4 % (32.4-45.2); HEMOGLOBIN 9.5 GM/dL (10.7-15.3); LYMPH % 13.7 % (8-40); MCH 30.3 pg (25.7-33.7); MCHC 32.3 g/dl (32.0-36.0); MEAN PLT VOLUME 8.6 fl (7.5-11.1); MONO % 16.2 % (3.8-10.2); NEUT % 60.5 % (42.8-82.8); PLATELET COUNT 379 K/MM3 (134-434); RBC 3.12 M/mm3 (3.60-5.2); WHITE BLOOD COUNT 7.9 K/mm3 (4.0-10.0)
[2020-10-13] MEDS: FOLIC ACID 1 MG TABLET (FP) GT SCH (11:08)
[2020-10-13] MEDS: MIDODRINE HCL 5 MG TABLET PO SCH ×3 (11:08→18:26)
[2020-10-13] MEDS: FERROUS SO4 300 MG/5 ML ORAL SOLN UNIT DOSE CUPS GT SCH ×2 (11:09→21:00)
[2020-10-13] MEDS: APIXABAN 5 MG TABLET PO SCH ×2 (11:09→21:01)
[2020-10-13] MEDS: ESCITALOPRAM OXALATE 5 MG/5 ML GT SCH (11:09)
[2020-10-13] MEDS: FAMOTIDINE 40 MG/5 ML ORAL SUSPENSION PEG SCH (11:09)
[2020-10-13] MEDS: AMANTADINE HCL 100 MG TABLET PO SCH ×2 (11:09→21:01)
[2020-10-13] MEDS: GABAPENTIN 250 MG/5 ML ORAL SOLUTION, 470 ML BOTTLE PO SCH ×2 (11:11→21:00)
[2020-10-13 11:17] LABS: POTASSIUM 5.1 mmol/L (3.5-5.1)
[2020-10-13 11:20] LABS: CALCIUM 10.9 mg/dL (8.5-10.1)
[2020-10-13 11:21] LABS: ALBUMIN 2.1 g/dl (3.4-5.0); BLOOD UREA NITROGEN 68.9 mg/dL (7-18)
[2020-10-13 11:23] LABS: CREATININE 2.3 mg/dL (0.55-1.3)
[2020-10-13 11:25] LABS: BILIRUBIN,TOTAL 0.3 mg/dL (0.2-1); TOT PROT 6.3 g/dl (6.4-8.2)
[2020-10-13] MEDS: MELATONIN 5 MG TABLETS PO PRN (21:00)
[2020-10-13] MEDS: QUEtiapine FUMARATE 25 MG TABLET PO SCH (21:01)
[2020-10-14] MEDS: NYSTATIN 100,000 UNIT/GM TOPICAL CREAM 15 GM TUBE TP SCH ×5 (01:40→23:50)
[2020-10-14] MEDS: LEVOTHYROXINE NA 25 MCG TABLET (FP) PO SCH (06:02)
[2020-10-14] MEDS: INSULIN SLIDING SCALE (NOVOLOG) 1 VIAL SQ SCH ×3 (06:11→17:58)
[2020-10-14] MEDS: ALBUTEROL SO4 2.5/IPRATROPIUM 0.5 INH SOL 3 ML VIAL.NEB. NEB SCH ×3 (08:10→15:35)
[2020-10-14 09:28] LABS: BASO % 0.6 % (0-2.0); EOS % 6.9 % (0-4.5); HEMOGLOBIN 9.8 GM/dL (10.7-15.3); LYMPH % 14.1 % (8-40); MCH 30.3 pg (25.7-33.7); MCHC 32.6 g/dl (32.0-36.0); MEAN PLT VOLUME 8.7 fl (7.5-11.1); MONO % 15.3 % (3.8-10.2); NEUT % 63.1 % (42.8-82.8); PLATELET COUNT 391 K/MM3 (134-434); RBC 3.23 M/mm3 (3.60-5.2); RDW 16.4 % (11.6-15.6)
[2020-10-14 09:39] LABS: POTASSIUM 4.9 mmol/L (3.5-5.1)
[2020-10-14 09:58] LABS: CALCIUM 11.1 mg/dL (8.5-10.1)
[2020-10-14 10:00] LABS: ALBUMIN 2.3 g/dl (3.4-5.0); BLOOD UREA NITROGEN 67.2 mg/dL (7-18)
[2020-10-14 10:02] LABS: CREATININE 2.5 mg/dL (0.55-1.3)
[2020-10-14 10:03] LABS: BILIRUBIN,TOTAL 0.5 mg/dL (0.2-1); TOT PROT 6.5 g/dl (6.4-8.2)
[2020-10-14] MEDS ORDERED: PT OWN MED DRAWER 7, Y5N ONE (10:28)
[2020-10-14] MEDS: AMANTADINE HCL 100 MG TABLET PO SCH (10:30)
[2020-10-14] MEDS: FAMOTIDINE 40 MG/5 ML ORAL SUSPENSION PEG SCH (10:30)
[2020-10-14] MEDS: APIXABAN 5 MG TABLET PO SCH (10:30)
[2020-10-14] MEDS: FERROUS SO4 300 MG/5 ML ORAL SOLN UNIT DOSE CUPS GT SCH ×2 (10:30→22:54)
[2020-10-14] MEDS: MIDODRINE HCL 5 MG TABLET PO SCH ×4 (10:30→18:33)
[2020-10-14] MEDS: FOLIC ACID 1 MG TABLET (FP) GT SCH (10:30)
[2020-10-14] MEDS: ESCITALOPRAM OXALATE 5 MG/5 ML GT SCH (10:31)
[2020-10-14] MEDS: GABAPENTIN 250 MG/5 ML ORAL SOLUTION, 470 ML BOTTLE PO SCH (10:32)
[2020-10-14] MEDS ORDERED: FUROSEMIDE 40 MG/4 ML INJECTABLE VIAL IVPUSH ONE (12:20)
[2020-10-14] MEDS ORDERED: ALTEPLASE 2 MG VIAL IA ONE ×2 (13:30)
[2020-10-14] MEDS: ALBUMIN HUMAN 25% 12.5 GM/50 ML VIAL IVPB SCH ×2 (19:21→22:55)
[2020-10-14] MEDS: QUEtiapine FUMARATE 25 MG TABLET PO SCH (22:54)
[2020-10-15] MEDS: MELATONIN 5 MG TABLETS PO PRN (00:03)
[2020-10-15] MEDS: ALBUMIN HUMAN 25% 12.5 GM/50 ML VIAL IVPB SCH ×2 (05:22→10:57)
[2020-10-15] MEDS: INSULIN SLIDING SCALE (NOVOLOG) 1 VIAL SQ SCH ×3 (06:46→17:48)
[2020-10-15] MEDS: NYSTATIN 100,000 UNIT/GM TOPICAL CREAM 15 GM TUBE TP SCH ×3 (06:46→19:30)
[2020-10-15] MEDS: LEVOTHYROXINE NA 25 MCG TABLET (FP) PO SCH (06:47)
[2020-10-15 09:22] LABS: BASO % 0.4 % (0-2.0); EOS % 5.2 % (0-4.5); HEMATOCRIT 25.9 % (32.4-45.2); HEMOGLOBIN 8.3 GM/dL (10.7-15.3); MCH 29.9 pg (25.7-33.7); MEAN CELL VOLUME 93.4 fl (80-96); MONO % 13.9 % (3.8-10.2); NEUT % 69.5 % (42.8-82.8); PLATELET COUNT 308 K/MM3 (134-434); RBC 2.77 M/mm3 (3.60-5.2); RDW 16.6 % (11.6-15.6)
[2020-10-15 09:50] LABS: POTASSIUM 4.7 mmol/L (3.5-5.1)
[2020-10-15 10:32] LABS: ALBUMIN 2.6 g/dl (3.4-5.0); BLOOD UREA NITROGEN 69.4 mg/dL (7-18); CALCIUM 11.2 mg/dL (8.5-10.1); MAGNESIUM 2.3 mg/dL (1.8-2.4)
[2020-10-15 10:35] LABS: CREATININE 2.6 mg/dL (0.55-1.3)
[2020-10-15 10:36] LABS: BILIRUBIN,TOTAL 0.6 mg/dL (0.2-1)
[2020-10-15 10:37] LABS: TOT PROT 6.5 g/dl (6.4-8.2)
[2020-10-15] MEDS ORDERED: PT OWN MED DRAWER 7, Y5N ONE ×2 (10:54→13:06)
[2020-10-15] MEDS: FERROUS SO4 300 MG/5 ML ORAL SOLN UNIT DOSE CUPS GT SCH ×2 (10:55→22:19)
[2020-10-15] MEDS: MIDODRINE HCL 5 MG TABLET PO SCH ×3 (10:55→22:18)
[2020-10-15] MEDS: FOLIC ACID 1 MG TABLET (FP) GT SCH (10:55)
[2020-10-15] MEDS: ESCITALOPRAM OXALATE 5 MG/5 ML GT SCH (10:56)
[2020-10-15] MEDS: FAMOTIDINE 40 MG/5 ML ORAL SUSPENSION PEG SCH (10:56)
[2020-10-15] MEDS: TORSEMIDE 20 MG TABLET (FP) PO SCH (13:16)
[2020-10-15] MEDS: QUEtiapine FUMARATE 25 MG TABLET PO SCH (22:19)
[2020-10-16] MEDS: LEVOTHYROXINE NA 25 MCG TABLET (FP) PO SCH (06:30)
[2020-10-16] MEDS: NYSTATIN 100,000 UNIT/GM TOPICAL CREAM 15 GM TUBE TP SCH ×5 (06:30→23:08)
[2020-10-16] MEDS: INSULIN SLIDING SCALE (NOVOLOG) 1 VIAL SQ SCH ×3 (06:30→19:06)
[2020-10-16 09:32] LABS: POTASSIUM 4.8 mmol/L (3.5-5.1)
[2020-10-16 09:34] LABS: CALCIUM 11.1 mg/dL (8.5-10.1)
[2020-10-16 09:35] LABS: BLOOD UREA NITROGEN 67.2 mg/dL (7-18); MAGNESIUM 2.2 mg/dL (1.8-2.4)
[2020-10-16 09:39] LABS: CREATININE 2.9 mg/dL (0.55-1.3)
[2020-10-16] MEDS ORDERED: PT OWN MED DRAWER 7, Y5N ONE (10:57)
[2020-10-16] MEDS: MIDODRINE HCL 5 MG TABLET PO SCH (11:16)
[2020-10-16] MEDS: FERROUS SO4 300 MG/5 ML ORAL SOLN UNIT DOSE CUPS GT SCH ×2 (11:16→23:08)
[2020-10-16] MEDS: TORSEMIDE 20 MG TABLET (FP) PO SCH (11:17)
[2020-10-16] MEDS: FOLIC ACID 1 MG TABLET (FP) GT SCH (11:17)
[2020-10-16] MEDS: FAMOTIDINE 40 MG/5 ML ORAL SUSPENSION PEG SCH (11:17)
[2020-10-16] MEDS: ESCITALOPRAM OXALATE 5 MG/5 ML GT SCH (11:17)
[2020-10-16] MEDS: ALBUTEROL SO4 2.5/IPRATROPIUM 0.5 INH SOL 3 ML VIAL.NEB. NEB SCH (21:00)
[2020-10-16] MEDS: QUEtiapine FUMARATE 25 MG TABLET PO SCH (23:08)
[2020-10-16] MEDS: APIXABAN 5 MG TABLET PO SCH (23:08)
[2020-10-17 05:48] VITALS: TEMP 98.6
[2020-10-17] MEDS: LEVOTHYROXINE NA 25 MCG TABLET (FP) PO SCH (06:09)
[2020-10-17] MEDS: INSULIN SLIDING SCALE (NOVOLOG) 1 VIAL SQ SCH ×2 (06:09→12:21)
[2020-10-17] MEDS: NYSTATIN 100,000 UNIT/GM TOPICAL CREAM 15 GM TUBE TP SCH (06:26)
[2020-10-17] MEDS: ALBUTEROL SO4 2.5/IPRATROPIUM 0.5 INH SOL 3 ML VIAL.NEB. NEB SCH (08:22)
[2020-10-17] MEDS ORDERED: PT OWN MED DRAWER 7, Y5N ONE ×2 (09:52→10:27)
[2020-10-17] MEDS: APIXABAN 5 MG TABLET PO SCH (10:30)
[2020-10-17] MEDS: FERROUS SO4 300 MG/5 ML ORAL SOLN UNIT DOSE CUPS GT SCH (10:30)
[2020-10-17] MEDS: TORSEMIDE 20 MG TABLET (FP) PO SCH (10:30)
[2020-10-17] MEDS: FAMOTIDINE 40 MG/5 ML ORAL SUSPENSION PEG SCH (10:30)
[2020-10-17] MEDS: FOLIC ACID 1 MG TABLET (FP) GT SCH (10:30)
[2020-10-17] MEDS: ESCITALOPRAM OXALATE 5 MG/5 ML GT SCH (10:30)
[2020-10-17 10:40] VITALS: BP 139/73; PULSE 89
== END 2020-10-17 11:46 | DRG 870 ==
LOC: JER 16:46 → JERBED 21:29 → JICU 10-03 03:39 → J5S 10-09 13:57 → UNDODISIN 10-16 17:28
PROVIDERS: ADMIT Internal Medicine Pulmonary Disease; ATTEND Family Medicine
PROC: 5A1955Z Respiratory Ventilation, Greater than 96 Consecutive Hours (ICD-10-PCS; principal; 2020-10-02)
PROC: 3E0G76Z Introduction of Nutritional Substance into Upper GI, Via Natural or Artificial Opening (ICD-10-PCS; 2020-10-02)
PROC: 30233N1 Transfusion of Nonautologous Red Blood Cells into Peripheral Vein, Percutaneous Approach (ICD-10-PCS; 2020-10-08)
DX: A41.9 Sepsis, unspecified organism (principal); R65.21 Severe sepsis with septic shock; N17.0 Acute kidney failure with tubular necrosis; J96.10 Chronic respiratory failure, unspecified whether with hypoxia or hypercapnia; J44.9 Chronic obstructive pulmonary disease, unspecified; E88.09 Other disorders of plasma-protein metabolism, not elsewhere classified; Z93.0 Tracheostomy status; Z93.1 Gastrostomy status; D53.1 Other megaloblastic anemias, not elsewhere classified; E03.9 Hypothyroidism, unspecified; I25.2 Old myocardial infarction; B94.8 Sequelae of other specified infectious and parasitic diseases; R74.01 Elevation of levels of liver transaminase levels; K52.9 Noninfective gastroenteritis and colitis, unspecified; R94.5 Abnormal results of liver function studies; H54.8 Legal blindness, as defined in USA; Z86.718 Personal history of other venous thrombosis and embolism; E11.9 Type 2 diabetes mellitus without complications; E87.5 Hyperkalemia; E83.52 Hypercalcemia; R33.9 Retention of urine, unspecified
CPT/HCPCS: 36415; 36430; 36511; 71045-TC-FY; 71260-TC; 74177-TC; 76705-TC; 80048; 80053; 81003; 82024; 82103; 82272; 82306; 82436; 82465; 82533; 82550; 82565; 82607; 82728; 82962; 83516; 83540; 83550; 83605; 83735; 83970; 84100; 84133; 84155; 84165; 84300; 84436; 84439; 84443; 84466; 84484; 84540; 85025; 85610; 85730; 86038; 86704; 86705; 86706; 86707; 86708; 86850; 86900; 86901; 86922; 87040; 87045; 87046; 87070; 87077; 87086; 87186; 87205; 87324; 87449; 87522; 93005; 93010; 93306-TC; 93970-TC; 94002; 94640; 97161-GP; 99285-25; C9803; G0480; J0131; J2997; P9038; P9047; P9058; U0003

== ENCOUNTER 2020-10-30 12:46 | Inpatient (IN) | payer OTHER ==
[2020-10-30] MEDS ORDERED: FUROSEMIDE 40 MG/4 ML INJECTABLE VIAL IVPUSH ONE (14:38)
[2020-10-30] MEDS ORDERED: FUROSEMIDE 40 MG/4 ML INJECTABLE VIAL ONE (14:44)
[2020-10-30 15:13] LABS: BASO % 0.5 % (0-2.0); HEMATOCRIT 25.7 % (32.4-45.2); HEMOGLOBIN 8.2 GM/dL (10.7-15.3); LYMPH % 11.9 % (8-40); MCH 29.1 pg (25.7-33.7); MEAN CELL VOLUME 90.8 fl (80-96); MEAN PLT VOLUME 8.6 fl (7.5-11.1); MONO % 13.4 % (3.8-10.2); NEUT % 70.2 % (42.8-82.8); PLATELET COUNT 344 K/MM3 (134-434); RBC 2.83 M/mm3 (3.60-5.2); RDW 16.8 % (11.6-15.6); WHITE BLOOD COUNT 10.3 K/mm3 (4.0-10.0)
[2020-10-30 15:17] LABS: INR 1.85 (0.83-1.09); PROTHROMBIN TIME (PATIENT) 22.3 SEC (9.7-13.0)
[2020-10-30 15:20] LABS: ACTIVATED PTT 34.4 SECONDS (25.2-36.5)
[2020-10-30 15:35] LABS: CHLORIDE 102 mmol/L (98-107); SODIUM 143 mmol/L (136-145)
[2020-10-30 15:38] LABS: ALBUMIN 2.6 g/dl (3.4-5.0); ANION GAP 10 MMOL/L (8-16); CALCIUM 9.5 mg/dL (8.5-10.1); CO2 31 mmol/L (21-32); GLUCOSE,RANDOM 94 mg/dL (74-106); MAGNESIUM 2.5 mg/dL (1.8-2.4)
[2020-10-30 15:41] LABS: CREATININE 4.6 mg/dL (0.55-1.3); PHOSPHOROUS 5.4 mg/dL (2.5-4.9); SGOT/AST 13 U/L (15-37); SGPT/ALT 19 U/L (13-61)
[2020-10-30 15:43] LABS: BILIRUBIN,TOTAL 0.5 mg/dL (0.2-1); TOT PROT 6.8 g/dl (6.4-8.2)
[2020-10-30 15:44] LABS: ALK PHOS 179 U/L (45-117)
[2020-10-30 15:55] LABS: BLOOD UREA NITROGEN 144.5 mg/dL (7-18)
[2020-10-30] MEDS ORDERED: FUROSEMIDE INJECTION 100 MG in DEXTROSE 5%-WATER - 90 ML IVPB SCH (16:45)
[2020-10-30 18:06] LABS: ANISOCYTOSIS 1+; MACROCYTOSIS 0; PLATELET ESTIMATE NORMAL
[2020-10-30 19:09] LABS: EPI CELLS 15 /uL (0-25.1); HYALINE CASTS 0 /uL (0-3.1); PH,URINE 6.5 (5.0-8.0); URINE APPEARANCE CLEAR; URINE BACTERIA 144 /uL (0-1359); URINE BILIRUBIN NEGATIVE (NEGATIVE); URINE COLOR YELLOW; URINE GLUCOSE (UA) NEGATIVE (NEGATIVE); URINE KETONE NEGATIVE (NEGATIVE); URINE LEUK ESTERASE 2+ (NEGATIVE); URINE NITRITE NEGATIVE (NEGATIVE); URINE PROTEIN 1+ (NEGATIVE); URINE RBC 114 /uL (0-23.9); URINE UROBILINOGEN 0.2 mg/dL (0.2-1.0); URINE WBC 62 /uL (0-25.8)
[2020-10-31] MEDS ORDERED: FUROSEMIDE 100 MG/10 ML INJECTABLE VIAL IVPB SCH (06:00)
[2020-10-31] MEDS: ALBUTEROL SO4 2.5/IPRATROPIUM 0.5 INH SOL 3 ML VIAL.NEB. NEB SCH ×3 (07:55→20:45)
[2020-10-31 10:00] LABS: BASO % 0.4 % (0-2.0); EOS % 1.7 % (0-4.5); HEMATOCRIT 25.8 % (32.4-45.2); HEMOGLOBIN 8.1 GM/dL (10.7-15.3); LYMPH % 7.2 % (8-40); MCH 28.7 pg (25.7-33.7); MCHC 31.5 g/dl (32.0-36.0); MEAN CELL VOLUME 91.4 fl (80-96); MEAN PLT VOLUME 8.8 fl (7.5-11.1); MONO % 13.6 % (3.8-10.2); NEUT % 77.1 % (42.8-82.8); PLATELET COUNT 343 K/MM3 (134-434); RBC 2.82 M/mm3 (3.60-5.2); RDW 16.5 % (11.6-15.6)
[2020-10-31 10:38] LABS: CALCIUM 9.7 mg/dL (8.5-10.1)
[2020-10-31 10:39] LABS: ALBUMIN 2.6 g/dl (3.4-5.0); MAGNESIUM 2.5 mg/dL (1.8-2.4)
[2020-10-31 10:42] LABS: CREATININE 4.6 mg/dL (0.55-1.3)
[2020-10-31 10:43] LABS: TOT PROT 7.1 g/dl (6.4-8.2)
[2020-10-31] MEDS: GABAPENTIN 250 MG/5 ML ORAL SOLUTION, 470 ML BOTTLE PO SCH ×2 (10:50→23:22)
[2020-10-31] MEDS: APIXABAN 5 MG TABLET PO SCH ×4 (10:50→23:30)
[2020-10-31] MEDS: FAMOTIDINE 40 MG/5 ML ORAL SUSPENSION PEG SCH (10:51)
[2020-10-31] MEDS: ESCITALOPRAM OXALATE 5 MG/5 ML GT SCH (10:51)
[2020-10-31 11:00] LABS: BLOOD UREA NITROGEN 147.9 mg/dL (7-18)
[2020-10-31] MEDS ORDERED: SODIUM CHLORIDE 250 ML IV PRN ×2 (11:07→17:32)
[2020-10-31] MEDS ORDERED: FERRIC CARBOXYMALTOSE 750 MG in SODIUM CHLORIDE 250 ML IVPB ONE (11:12)
[2020-10-31] MEDS: FOLIC ACID 1 MG TABLET (FP) GT SCH (12:31)
[2020-10-31] MEDS: AMANTADINE HCL 100 MG TABLET PO SCH ×2 (12:31→23:22)
[2020-10-31 13:13] LABS: ANISOCYTOSIS 1+; MACROCYTOSIS 0; OVALOCYTE 1+; PLATELET ESTIMATE NORMAL; TARGET CELLS 1+
[2020-10-31 13:35] VITALS: BMI 26.2
[2020-10-31] MEDS: ALBUMIN HUMAN 25% 12.5 GM/50 ML VIAL IVPB SCH ×4 (18:20→19:50)
[2020-10-31] MEDS: BANATROL PLUS POWDER PACKET PEG SCH ×2 (18:32→23:21)
[2020-10-31] MEDS: FERROUS SO4 300 MG/5 ML ORAL SOLN UNIT DOSE CUPS GT SCH (23:22)
[2020-10-31] MEDS: QUEtiapine FUMARATE 25 MG TABLET PO SCH (23:23)
[2020-11-01] MEDS: LEVOTHYROXINE NA 25 MCG TABLET (FP) PO SCH (06:11)
[2020-11-01] MEDS: BANATROL PLUS POWDER PACKET PEG SCH ×3 (06:12→21:01)
[2020-11-01] MEDS: ALBUTEROL SO4 2.5/IPRATROPIUM 0.5 INH SOL 3 ML VIAL.NEB. NEB SCH ×3 (08:00→20:15)
[2020-11-01] MEDS: ALBUMIN HUMAN 25% 12.5 GM/50 ML VIAL IVPB SCH ×4 (08:30→10:00)
[2020-11-01 09:07] LABS: HEMATOCRIT 24.1 % (32.4-45.2); HEMOGLOBIN 7.8 GM/dL (10.7-15.3); MCH 29.7 pg (25.7-33.7); MCHC 32.4 g/dl (32.0-36.0); MEAN CELL VOLUME 91.7 fl (80-96); MEAN PLT VOLUME 8.9 fl (7.5-11.1); PLATELET COUNT 294 K/MM3 (134-434); RBC 2.63 M/mm3 (3.60-5.2); RDW 17.1 % (11.6-15.6); WHITE BLOOD COUNT 13.6 K/mm3 (4.0-10.0)
[2020-11-01 10:46] LABS: ALBUMIN 2.3 g/dl (3.4-5.0); BILIRUBIN,TOTAL 0.7 mg/dL (0.2-1); BLOOD UREA NITROGEN 84.8 mg/dL (7-18); CALCIUM 8.8 mg/dL (8.5-10.1); CREATININE 3.5 mg/dL (0.55-1.3); PHOSPHOROUS 3.9 mg/dL (2.5-4.9); TOT PROT 6.6 g/dl (6.4-8.2)
[2020-11-01] MEDS ORDERED: PT OWN MED DRAWER 7, Y5N ONE ×3 (11:34→21:04)
[2020-11-01] MEDS: APIXABAN 5 MG TABLET PO SCH ×2 (12:13→21:02)
[2020-11-01] MEDS: FERROUS SO4 300 MG/5 ML ORAL SOLN UNIT DOSE CUPS GT SCH ×2 (12:13→21:02)
[2020-11-01] MEDS: FAMOTIDINE 40 MG/5 ML ORAL SUSPENSION PEG SCH (12:13)
[2020-11-01] MEDS: ESCITALOPRAM OXALATE 5 MG/5 ML GT SCH (12:13)
[2020-11-01] MEDS: FOLIC ACID 1 MG TABLET (FP) GT SCH (12:13)
[2020-11-01] MEDS: AMANTADINE HCL 100 MG TABLET PO SCH ×2 (12:14→21:06)
[2020-11-01] MEDS: GABAPENTIN 250 MG/5 ML ORAL SOLUTION, 470 ML BOTTLE PO SCH ×2 (12:15→21:06)
[2020-11-01] MEDS: INSULIN SLIDING SCALE (NOVOLOG) 1 VIAL SQ SCH (13:24)
[2020-11-01] MEDS ORDERED: VANCOMYCIN 250 MG/5 ML ORAL SOLUTION PO SCH (18:00)
[2020-11-01] MEDS: QUEtiapine FUMARATE 25 MG TABLET PO SCH (21:01)
[2020-11-01] MEDS: MELATONIN 5 MG TABLETS PO PRN (21:02)
[2020-11-01] MEDS ORDERED: ' PEG SCH (23:22)
[2020-11-01] MEDS: VANCOMYCIN 250 MG/5 ML ORAL SOLUTION PEG SCH (23:48)
[2020-11-02] MEDS: ALBUTEROL SO4 2.5/IPRATROPIUM 0.5 INH SOL 3 ML VIAL.NEB. NEB SCH ×5 (04:02→20:20)
[2020-11-02] MEDS: BANATROL PLUS POWDER PACKET PEG SCH (05:27)
[2020-11-02] MEDS: LEVOTHYROXINE NA 25 MCG TABLET (FP) PO SCH (06:03)
[2020-11-02] MEDS: VANCOMYCIN 250 MG/5 ML ORAL SOLUTION PEG SCH ×4 (06:04→23:41)
[2020-11-02] MEDS: APIXABAN 5 MG TABLET PO SCH ×2 (10:39→21:10)
[2020-11-02] MEDS: FOLIC ACID 1 MG TABLET (FP) GT SCH (10:39)
[2020-11-02] MEDS: FERROUS SO4 300 MG/5 ML ORAL SOLN UNIT DOSE CUPS GT SCH ×2 (10:39→21:10)
[2020-11-02] MEDS: FAMOTIDINE 40 MG/5 ML ORAL SUSPENSION PEG SCH (10:40)
[2020-11-02] MEDS: ESCITALOPRAM OXALATE 5 MG/5 ML GT SCH (10:40)
[2020-11-02] MEDS: AMANTADINE HCL 100MG/10 ML UNIT DOSE CUPS PEG SCH ×2 (10:41→21:11)
[2020-11-02 12:33] LABS: BASO % 0.2 % (0-2.0); EOS % 4.4 % (0-4.5); HEMATOCRIT 22.3 % (32.4-45.2); HEMOGLOBIN 7.2 GM/dL (10.7-15.3); LYMPH % 12.1 % (8-40); MCH 29.4 pg (25.7-33.7); MCHC 32.4 g/dl (32.0-36.0); MEAN CELL VOLUME 90.8 fl (80-96); MEAN PLT VOLUME 8.2 fl (7.5-11.1); MONO % 16.2 % (3.8-10.2); NEUT % 67.1 % (42.8-82.8); PLATELET COUNT 236 K/MM3 (134-434); RBC 2.46 M/mm3 (3.60-5.2); RDW 16.6 % (11.6-15.6); WHITE BLOOD COUNT 10.5 K/mm3 (4.0-10.0)
[2020-11-02 12:51] LABS: CALCIUM 8.9 mg/dL (8.5-10.1)
[2020-11-02 12:55] LABS: CREATININE 2.7 mg/dL (0.55-1.3)
[2020-11-02 12:56] LABS: BILIRUBIN,TOTAL 0.6 mg/dL (0.2-1); TOT PROT 6.4 g/dl (6.4-8.2)
[2020-11-02] MEDS ORDERED: POTASSIUM CHLORIDE ORAL LIQUID 20 MEQ/15 ML PO ONE ×2 (12:56)
[2020-11-02 12:58] LABS: ANISOCYTOSIS 1+; MACROCYTOSIS 0; PLATELET ESTIMATE NORMAL
[2020-11-02 12:59] LABS: ALBUMIN 2.9 g/dl (3.4-5.0); BLOOD UREA NITROGEN 45.9 mg/dL (7-18)
[2020-11-02] MEDS: GABAPENTIN 250 MG/5 ML ORAL SOLUTION, 470 ML BOTTLE PEG SCH ×2 (13:09→21:57)
[2020-11-02] MEDS: ALPRAZolam 0.25 MG TABLET GT PRN (13:13)
[2020-11-02] MEDS: NYSTATIN POWDER 100,000 UNITS/GM - 15 GM TOPICAL POWDER TP SCH ×2 (15:30→21:11)
[2020-11-02] MEDS: MELATONIN 5 MG TABLETS PO PRN (21:10)
[2020-11-02] MEDS: QUEtiapine FUMARATE 25 MG TABLET PO SCH (21:10)
[2020-11-03] MEDS: ALBUTEROL SO4 2.5/IPRATROPIUM 0.5 INH SOL 3 ML VIAL.NEB. NEB SCH ×5 (01:46→20:25)
[2020-11-03] MEDS: VANCOMYCIN 250 MG/5 ML ORAL SOLUTION PEG SCH ×3 (05:22→18:45)
[2020-11-03] MEDS: ALPRAZolam 0.25 MG TABLET GT PRN ×3 (05:22→18:45)
[2020-11-03] MEDS: LEVOTHYROXINE NA 25 MCG TABLET (FP) PO SCH (06:06)
[2020-11-03 09:14] LABS: BASO % 0.4 % (0-2.0); EOS % 5.4 % (0-4.5); HEMATOCRIT 23.9 % (32.4-45.2); HEMOGLOBIN 7.7 GM/dL (10.7-15.3); LYMPH % 8.1 % (8-40); MCH 29.5 pg (25.7-33.7); MCHC 32.2 g/dl (32.0-36.0); MEAN CELL VOLUME 91.7 fl (80-96); MEAN PLT VOLUME 8.5 fl (7.5-11.1); MONO % 13.8 % (3.8-10.2); NEUT % 72.3 % (42.8-82.8); PLATELET COUNT 244 K/MM3 (134-434); WHITE BLOOD COUNT 10.5 K/mm3 (4.0-10.0)
[2020-11-03 09:26] LABS: CALCIUM 9.2 mg/dL (8.5-10.1)
[2020-11-03 09:27] LABS: ALBUMIN 2.9 g/dl (3.4-5.0); BLOOD UREA NITROGEN 52.6 mg/dL (7-18)
[2020-11-03 09:32] LABS: BILIRUBIN,TOTAL 0.6 mg/dL (0.2-1); TOT PROT 6.7 g/dl (6.4-8.2)
[2020-11-03] MEDS ORDERED: PT OWN MED DRAWER 7, Y5N ONE ×3 (11:29→21:31)
[2020-11-03] MEDS: GABAPENTIN 250 MG/5 ML ORAL SOLUTION, 470 ML BOTTLE PEG SCH ×2 (11:34→21:53)
[2020-11-03] MEDS: FERROUS SO4 300 MG/5 ML ORAL SOLN UNIT DOSE CUPS GT SCH ×2 (11:34→21:55)
[2020-11-03] MEDS: FOLIC ACID 1 MG TABLET (FP) GT SCH (11:34)
[2020-11-03] MEDS: APIXABAN 5 MG TABLET PO SCH ×2 (11:34→21:55)
[2020-11-03] MEDS: ESCITALOPRAM OXALATE 5 MG/5 ML GT SCH (11:35)
[2020-11-03] MEDS: AMANTADINE HCL 100MG/10 ML UNIT DOSE CUPS PEG SCH ×2 (11:36→21:55)
[2020-11-03] MEDS: FAMOTIDINE 40 MG/5 ML ORAL SUSPENSION PEG SCH (11:36)
[2020-11-03] MEDS: NYSTATIN POWDER 100,000 UNITS/GM - 15 GM TOPICAL POWDER TP SCH ×2 (11:37→21:55)
[2020-11-03 11:59] LABS: ANISOCYTOSIS 1+; MACROCYTOSIS 0; PLATELET ESTIMATE NORMAL
[2020-11-03 17:06] LABS: ATYPICAL pANCA <1:20 titer (Neg:<1:20); C-ANCA <1:20 titer (Neg:<1:20)
[2020-11-03] MEDS ORDERED: SODIUM CHLORIDE 250 ML IV PRN ×2 (17:41→17:44)
[2020-11-03] MEDS: MELATONIN 5 MG TABLETS PO PRN (21:54)
[2020-11-03] MEDS: QUEtiapine FUMARATE 25 MG TABLET PO SCH (21:54)
[2020-11-04] MEDS: VANCOMYCIN 250 MG/5 ML ORAL SOLUTION PEG SCH ×5 (00:03→23:21)
[2020-11-04] MEDS: LEVOTHYROXINE NA 25 MCG TABLET (FP) PO SCH (06:01)
[2020-11-04] MEDS ORDERED: INSULIN (LEVEMIR) 100 UNITS/ML UNITS SQ ONE (07:46)
[2020-11-04] MEDS ORDERED: INSULIN (NOVOLOG) ASPART 100 UNITS/ML 10ML VIAL ONE (07:46)
[2020-11-04] MEDS: ALBUTEROL SO4 2.5/IPRATROPIUM 0.5 INH SOL 3 ML VIAL.NEB. NEB SCH ×4 (08:05→20:10)
[2020-11-04 09:10] LABS: BASO % 0.2 % (0-2.0); EOS % 4.5 % (0-4.5); HEMATOCRIT 23.4 % (32.4-45.2); HEMOGLOBIN 7.5 GM/dL (10.7-15.3); LYMPH % 6.1 % (8-40); MCH 29.4 pg (25.7-33.7); MEAN CELL VOLUME 91.6 fl (80-96); MEAN PLT VOLUME 8.4 fl (7.5-11.1); MONO % 15.4 % (3.8-10.2); NEUT % 73.8 % (42.8-82.8); PLATELET COUNT 219 K/MM3 (134-434); RBC 2.55 M/mm3 (3.60-5.2); RDW 16.9 % (11.6-15.6); WHITE BLOOD COUNT 12.3 K/mm3 (4.0-10.0)
[2020-11-04 09:24] LABS: CALCIUM 9.6 mg/dL (8.5-10.1)
[2020-11-04 09:25] LABS: BLOOD UREA NITROGEN 58.1 mg/dL (7-18)
[2020-11-04 09:28] LABS: CREATININE 3.4 mg/dL (0.55-1.3)
[2020-11-04 09:29] LABS: BILIRUBIN,TOTAL 0.5 mg/dL (0.2-1)
[2020-11-04] MEDS: ALBUMIN HUMAN 25% 12.5 GM/50 ML VIAL IVPB SCH ×4 (10:00→11:30)
[2020-11-04] MEDS ORDERED: PT OWN MED DRAWER 7, Y5N ONE ×2 (10:09→23:09)
[2020-11-04 10:18] LABS: ANISOCYTOSIS 1+; MACROCYTOSIS 0; PLATELET ESTIMATE NORMAL
[2020-11-04] MEDS: ALPRAZolam 0.25 MG TABLET GT PRN ×2 (12:59→19:06)
[2020-11-04] MEDS: NYSTATIN POWDER 100,000 UNITS/GM - 15 GM TOPICAL POWDER TP SCH ×2 (13:31→23:22)
[2020-11-04] MEDS: GABAPENTIN 250 MG/5 ML ORAL SOLUTION, 470 ML BOTTLE PEG SCH ×2 (13:31→23:21)
[2020-11-04] MEDS: FAMOTIDINE 40 MG/5 ML ORAL SUSPENSION PEG SCH (13:31)
[2020-11-04] MEDS: AMANTADINE HCL 100MG/10 ML UNIT DOSE CUPS PEG SCH ×2 (13:31→23:20)
[2020-11-04] MEDS: ESCITALOPRAM OXALATE 5 MG/5 ML GT SCH (13:31)
[2020-11-04] MEDS: FOLIC ACID 1 MG TABLET (FP) GT SCH (13:32)
[2020-11-04] MEDS: FERROUS SO4 300 MG/5 ML ORAL SOLN UNIT DOSE CUPS GT SCH ×2 (13:32→23:22)
[2020-11-04] MEDS: APIXABAN 5 MG TABLET PO SCH ×2 (13:32→23:18)
[2020-11-04] MEDS: QUEtiapine FUMARATE 25 MG TABLET PO SCH (23:18)
[2020-11-04] MEDS: MELATONIN 5 MG TABLETS PO PRN (23:21)
[2020-11-05] MEDS: ALPRAZolam 0.25 MG TABLET GT PRN (01:30)
[2020-11-05] MEDS: ALBUTEROL SO4 2.5/IPRATROPIUM 0.5 INH SOL 3 ML VIAL.NEB. NEB SCH ×4 (03:50→20:30)
[2020-11-05] MEDS: VANCOMYCIN 250 MG/5 ML ORAL SOLUTION PEG SCH ×4 (06:56→23:12)
[2020-11-05] MEDS: LEVOTHYROXINE NA 25 MCG TABLET (FP) PO SCH (06:56)
[2020-11-05 10:14] LABS: BASO % 0.3 % (0-2.0); EOS % 1.7 % (0-4.5); HEMATOCRIT 21.5 % (32.4-45.2); LYMPH % 8.5 % (8-40); MCH 29.4 pg (25.7-33.7); MCHC 31.9 g/dl (32.0-36.0); MEAN PLT VOLUME 8.4 fl (7.5-11.1); MONO % 16.5 % (3.8-10.2); PLATELET COUNT 201 K/MM3 (134-434); RBC 2.33 M/mm3 (3.60-5.2); RDW 16.6 % (11.6-15.6); WHITE BLOOD COUNT 14.1 K/mm3 (4.0-10.0)
[2020-11-05 10:28] LABS: HEMOGLOBIN 6.9 GM/dL (10.7-15.3)
[2020-11-05 10:35] LABS: BLOOD UREA NITROGEN 42.4 mg/dL (7-18)
[2020-11-05 10:38] LABS: CREATININE 2.9 mg/dL (0.55-1.3)
[2020-11-05 10:39] LABS: BILIRUBIN,TOTAL 0.6 mg/dL (0.2-1)
[2020-11-05 10:40] LABS: CALCIUM 9.9 mg/dL (8.5-10.1)
[2020-11-05] MEDS: FOLIC ACID 1 MG TABLET (FP) GT SCH (11:23)
[2020-11-05] MEDS: APIXABAN 5 MG TABLET PO SCH ×2 (11:23→22:06)
[2020-11-05] MEDS: FERROUS SO4 300 MG/5 ML ORAL SOLN UNIT DOSE CUPS GT SCH ×2 (11:23→22:05)
[2020-11-05] MEDS: FAMOTIDINE 40 MG/5 ML ORAL SUSPENSION PEG SCH (11:24)
[2020-11-05] MEDS: GABAPENTIN 250 MG/5 ML ORAL SOLUTION, 470 ML BOTTLE PEG SCH ×2 (11:24→22:06)
[2020-11-05] MEDS: NYSTATIN POWDER 100,000 UNITS/GM - 15 GM TOPICAL POWDER TP SCH ×2 (11:24→22:06)
[2020-11-05] MEDS: ESCITALOPRAM OXALATE 5 MG/5 ML GT SCH (11:24)
[2020-11-05] MEDS: AMANTADINE HCL 100MG/10 ML UNIT DOSE CUPS PEG SCH ×2 (11:25→22:06)
[2020-11-05 12:17] LABS: ANISOCYTOSIS 1+; MACROCYTOSIS 0; PLATELET ESTIMATE NORMAL
[2020-11-05 12:45] LABS: URINE APPEARANCE TURBID; URINE BILIRUBIN MODERATE (NEGATIVE); URINE COLOR DK YELLOW; URINE GLUCOSE (UA) NEGATIVE (NEGATIVE); URINE KETONE TRACE (NEGATIVE); URINE PROTEIN 2+ (NEGATIVE)
[2020-11-05 12:46] LABS: EPI CELLS 285.1 /uL (0-25.1); HYALINE CASTS 1283 /uL (0-3.1); URINE BACTERIA 23637 /uL (0-1359); URINE LEUK ESTERASE 3+ (NEGATIVE); URINE NITRITE NEGATIVE (NEGATIVE); URINE RBC 325.1 /uL (0-23.9); URINE WBC 15057 /uL (0-25.8)
[2020-11-05 14:06] LABS: YEAST NON SEEN (NEGATIVE)
[2020-11-05] MEDS: ACETAMINOPHEN 650 MG/20.3 ML ORAL SOLUTION (CUPS) PO PRN ×2 (16:21→22:06)
[2020-11-05] MEDS ORDERED: PT OWN MED DRAWER 7, Y5N ONE (21:50)
[2020-11-05] MEDS: QUEtiapine FUMARATE 25 MG TABLET PO SCH (22:06)
[2020-11-06] MEDS: VANCOMYCIN 250 MG/5 ML ORAL SOLUTION PEG SCH ×4 (06:01→23:25)
[2020-11-06] MEDS: LEVOTHYROXINE NA 25 MCG TABLET (FP) PO SCH (06:01)
[2020-11-06 07:58] LABS: BASO % 0.3 % (0-2.0); HEMATOCRIT 24.6 % (32.4-45.2); HEMOGLOBIN 7.8 GM/dL (10.7-15.3); LYMPH % 5.8 % (8-40); MCH 28.5 pg (25.7-33.7); MCHC 31.6 g/dl (32.0-36.0); MEAN CELL VOLUME 90.4 fl (80-96); MEAN PLT VOLUME 8.7 fl (7.5-11.1); MONO % 15.3 % (3.8-10.2); NEUT % 76.6 % (42.8-82.8); PLATELET COUNT 187 K/MM3 (134-434); RBC 2.72 M/mm3 (3.60-5.2); RDW 17.9 % (11.6-15.6); WHITE BLOOD COUNT 17.5 K/mm3 (4.0-10.0)
[2020-11-06 08:26] LABS: BILIRUBIN,TOTAL 0.6 mg/dL (0.2-1); BLOOD UREA NITROGEN 54.8 mg/dL (7-18); CALCIUM 10.1 mg/dL (8.5-10.1); CREATININE 3.5 mg/dL (0.55-1.3); TOT PROT 6.8 g/dl (6.4-8.2)
[2020-11-06] MEDS: ALBUTEROL SO4 2.5/IPRATROPIUM 0.5 INH SOL 3 ML VIAL.NEB. NEB SCH ×4 (08:39→20:38)
[2020-11-06] MEDS: ACETAMINOPHEN 650 MG/20.3 ML ORAL SOLUTION (CUPS) PO PRN (09:10)
[2020-11-06] MEDS ORDERED: POTASSIUM CHLORIDE ORAL LIQUID 20 MEQ/15 ML PO ONE ×2 (09:11→11:45)
[2020-11-06] MEDS: APIXABAN 5 MG TABLET PO SCH ×2 (09:12→21:20)
[2020-11-06] MEDS: FERROUS SO4 300 MG/5 ML ORAL SOLN UNIT DOSE CUPS GT SCH ×2 (09:12→21:21)
[2020-11-06] MEDS: FOLIC ACID 1 MG TABLET (FP) GT SCH (09:12)
[2020-11-06] MEDS ORDERED: PT OWN MED DRAWER 7, Y5N ONE ×3 (10:22→20:48)
[2020-11-06 11:40] LABS: ANISOCYTOSIS 1+; MACROCYTOSIS 0; PLATELET ESTIMATE NORMAL
[2020-11-06] MEDS: ESCITALOPRAM OXALATE 5 MG/5 ML GT SCH (11:47)
[2020-11-06] MEDS: AMANTADINE HCL 100MG/10 ML UNIT DOSE CUPS PEG SCH ×2 (11:48→21:22)
[2020-11-06] MEDS: FAMOTIDINE 40 MG/5 ML ORAL SUSPENSION PEG SCH (11:48)
[2020-11-06] MEDS: NYSTATIN POWDER 100,000 UNITS/GM - 15 GM TOPICAL POWDER TP SCH ×2 (11:51→21:21)
[2020-11-06] MEDS: GABAPENTIN 250 MG/5 ML ORAL SOLUTION, 470 ML BOTTLE PEG SCH ×2 (12:03→21:21)
[2020-11-06] MEDS ORDERED: VANCOMYCIN 1 GRAM (PRE-DOCKED) 1,000 MG/250 ML BAG IVPB ONE (17:04)
[2020-11-06] MEDS: ALPRAZolam 0.25 MG TABLET PO PRN (17:16)
[2020-11-06] MEDS ORDERED: PIPERACILLIN/TAZOBACTAM 2.25 GM VIAL IVPB ONE (17:24)
[2020-11-06] MEDS ORDERED: DEXTROSE 5%-WATER - 50 ML IVPB ONE (17:25)
[2020-11-06] MEDS: PIPERACILLIN/TAZOB 2.25 GM 2.25 GM in DEXTROSE 5%-WATER - 50 ML IVPB SCH (17:42)
[2020-11-06] MEDS: QUEtiapine FUMARATE 25 MG TABLET PO SCH (21:20)
[2020-11-06] MEDS: MELATONIN 5 MG TABLETS PO PRN (23:25)
[2020-11-07] MEDS ORDERED: DEXTROSE 5%-WATER - 50 ML IVPB ONE ×3 (01:03→16:45)
[2020-11-07] MEDS ORDERED: PIPERACILLIN/TAZOBACTAM 2.25 GM VIAL IVPB ONE ×3 (01:03→16:45)
[2020-11-07] MEDS: PIPERACILLIN/TAZOB 2.25 GM 2.25 GM in DEXTROSE 5%-WATER - 50 ML IVPB SCH ×3 (01:27→17:27)
[2020-11-07] MEDS: ACETAMINOPHEN 650 MG/20.3 ML ORAL SOLUTION (CUPS) PO PRN ×2 (01:34→20:09)
[2020-11-07] MEDS: VANCOMYCIN 250 MG/5 ML ORAL SOLUTION PEG SCH ×4 (05:06→23:40)
[2020-11-07] MEDS: ALPRAZolam 0.25 MG TABLET PO PRN (05:27)
[2020-11-07] MEDS: LEVOTHYROXINE NA 25 MCG TABLET (FP) PO SCH (06:01)
[2020-11-07] MEDS: ALBUTEROL SO4 2.5/IPRATROPIUM 0.5 INH SOL 3 ML VIAL.NEB. NEB SCH ×4 (07:50→20:05)
[2020-11-07 08:36] LABS: BASO % 0.2 % (0-2.0); EOS % 1.1 % (0-4.5); HEMATOCRIT 24.7 % (32.4-45.2); HEMOGLOBIN 7.9 GM/dL (10.7-15.3); LYMPH % 4.9 % (8-40); MCH 28.8 pg (25.7-33.7); MCHC 31.9 g/dl (32.0-36.0); MEAN CELL VOLUME 90.2 fl (80-96); MEAN PLT VOLUME 8.8 fl (7.5-11.1); MONO % 15.8 % (3.8-10.2); PLATELET COUNT 229 K/MM3 (134-434); RBC 2.74 M/mm3 (3.60-5.2); RDW 18.6 % (11.6-15.6); WHITE BLOOD COUNT 18.4 K/mm3 (4.0-10.0)
[2020-11-07] MEDS ORDERED: PT OWN MED DRAWER 7, Y5N ONE ×2 (09:03→21:01)
[2020-11-07 09:12] LABS: ALBUMIN 3.2 g/dl (3.4-5.0)
[2020-11-07 09:16] LABS: BILIRUBIN,TOTAL 0.7 mg/dL (0.2-1); CALCIUM 10.5 mg/dL (8.5-10.1); TOT PROT 7.4 g/dl (6.4-8.2)
[2020-11-07 09:17] LABS: BLOOD UREA NITROGEN 65.3 mg/dL (7-18)
[2020-11-07 09:20] LABS: CREATININE 4.1 mg/dL (0.55-1.3)
[2020-11-07 09:27] LABS: ANISOCYTOSIS 0; MACROCYTOSIS 1+; PLATELET ESTIMATE NORMAL
[2020-11-07] MEDS: GABAPENTIN 250 MG/5 ML ORAL SOLUTION, 470 ML BOTTLE PEG SCH ×2 (10:11→21:37)
[2020-11-07] MEDS: NYSTATIN POWDER 100,000 UNITS/GM - 15 GM TOPICAL POWDER TP SCH ×2 (10:11→21:37)
[2020-11-07] MEDS: FAMOTIDINE 40 MG/5 ML ORAL SUSPENSION PEG SCH (10:11)
[2020-11-07] MEDS: ESCITALOPRAM OXALATE 5 MG/5 ML GT SCH (10:11)
[2020-11-07] MEDS: FERROUS SO4 300 MG/5 ML ORAL SOLN UNIT DOSE CUPS GT SCH ×2 (10:12→21:26)
[2020-11-07] MEDS: APIXABAN 5 MG TABLET PO SCH ×2 (10:12→21:26)
[2020-11-07] MEDS: AMANTADINE HCL 100MG/10 ML UNIT DOSE CUPS PEG SCH ×2 (10:12→21:26)
[2020-11-07] MEDS: FOLIC ACID 1 MG TABLET (FP) GT SCH (10:13)
[2020-11-07] MEDS: ALBUMIN HUMAN 25% 12.5 GM/50 ML VIAL IVPB SCH ×3 (12:23→14:30)
[2020-11-07] MEDS ORDERED: FUROSEMIDE 100 MG/10 ML INJECTABLE VIAL IVPB ONE (12:30)
[2020-11-07] MEDS ORDERED: ALBUMIN HUMAN 25% 12.5 GM/50 ML VIAL IVPB ONE (13:20)
[2020-11-07] MEDS: QUEtiapine FUMARATE 25 MG TABLET PO SCH (21:26)
[2020-11-07] MEDS: MELATONIN 5 MG TABLETS PO PRN (23:15)
[2020-11-08] MEDS ORDERED: PIPERACILLIN/TAZOBACTAM 2.25 GM VIAL IVPB ONE ×3 (01:08→18:53)
[2020-11-08] MEDS ORDERED: DEXTROSE 5%-WATER - 50 ML IVPB ONE ×3 (01:09→18:53)
[2020-11-08] MEDS: PIPERACILLIN/TAZOB 2.25 GM 2.25 GM in DEXTROSE 5%-WATER - 50 ML IVPB SCH ×3 (02:07→18:58)
[2020-11-08] MEDS: VANCOMYCIN 250 MG/5 ML ORAL SOLUTION PEG SCH ×4 (05:01→23:37)
[2020-11-08] MEDS: ALPRAZolam 0.25 MG TABLET PO PRN ×2 (05:01→17:51)
[2020-11-08] MEDS: LEVOTHYROXINE NA 25 MCG TABLET (FP) PO SCH (06:02)
[2020-11-08] MEDS: ALBUTEROL SO4 2.5/IPRATROPIUM 0.5 INH SOL 3 ML VIAL.NEB. NEB SCH ×4 (07:57→20:00)
[2020-11-08 08:44] LABS: HEMATOCRIT 24.2 % (32.4-45.2); HEMOGLOBIN 7.6 GM/dL (10.7-15.3); MCH 28.9 pg (25.7-33.7); MCHC 31.6 g/dl (32.0-36.0); MEAN CELL VOLUME 91.7 fl (80-96); PLATELET COUNT 235 K/MM3 (134-434); RBC 2.64 M/mm3 (3.60-5.2); RDW 18.3 % (11.6-15.6); WHITE BLOOD COUNT 17.7 K/mm3 (4.0-10.0)
[2020-11-08 08:45] LABS: BASO % 0.2 % (0-2.0); EOS % 1.3 % (0-4.5); LYMPH % 4.4 % (8-40); MONO % 15.1 % (3.8-10.2)
[2020-11-08 09:13] LABS: CALCIUM 11.1 mg/dL (8.5-10.1)
[2020-11-08 09:14] LABS: MAGNESIUM 2.1 mg/dL (1.8-2.4)
[2020-11-08 09:16] LABS: CREATININE 4.5 mg/dL (0.55-1.3)
[2020-11-08 09:17] LABS: BILIRUBIN,TOTAL 0.7 mg/dL (0.2-1); PHOSPHOROUS 3.3 mg/dL (2.5-4.9)
[2020-11-08 09:29] LABS: TOT PROT 7.4 g/dl (6.4-8.2)
[2020-11-08] MEDS: FOLIC ACID 1 MG TABLET (FP) GT SCH (10:15)
[2020-11-08] MEDS: FERROUS SO4 300 MG/5 ML ORAL SOLN UNIT DOSE CUPS GT SCH ×2 (10:15→23:37)
[2020-11-08] MEDS: APIXABAN 5 MG TABLET PO SCH ×2 (10:16→23:38)
[2020-11-08] MEDS: FAMOTIDINE 40 MG/5 ML ORAL SUSPENSION PEG SCH (10:16)
[2020-11-08] MEDS: ESCITALOPRAM OXALATE 5 MG/5 ML GT SCH (10:16)
[2020-11-08] MEDS: AMANTADINE HCL 100MG/10 ML UNIT DOSE CUPS PEG SCH ×2 (10:17→23:36)
[2020-11-08] MEDS: GABAPENTIN 250 MG/5 ML ORAL SOLUTION, 470 ML BOTTLE PEG SCH ×2 (10:17→23:42)
[2020-11-08 10:30] LABS: ANISOCYTOSIS 1+; MACROCYTOSIS 0; PLATELET ESTIMATE NORMAL
[2020-11-08] MEDS: NYSTATIN POWDER 100,000 UNITS/GM - 15 GM TOPICAL POWDER TP SCH ×2 (11:00→23:37)
[2020-11-08] MEDS ORDERED: FUROSEMIDE 100 MG/10 ML INJECTABLE VIAL IVPB ONE (14:42)
[2020-11-08] MEDS: MIDODRINE HCL 2.5 MG TABLET PO SCH ×2 (16:26→17:51)
[2020-11-08] MEDS ORDERED: MIDODRINE HCL 2.5 MG TABLET PO SCH (18:00)
[2020-11-08] MEDS ORDERED: PT OWN MED DRAWER 7, Y5N ONE (23:28)
[2020-11-08] MEDS: QUEtiapine FUMARATE 25 MG TABLET PO SCH (23:38)
[2020-11-08] MEDS: MELATONIN 5 MG TABLETS PO PRN (23:38)
[2020-11-09] MEDS ORDERED: PIPERACILLIN/TAZOBACTAM 2.25 GM VIAL IVPB ONE ×3 (02:00→17:31)
[2020-11-09] MEDS ORDERED: DEXTROSE 5%-WATER - 50 ML IVPB ONE ×3 (02:00→17:31)
[2020-11-09] MEDS: PIPERACILLIN/TAZOB 2.25 GM 2.25 GM in DEXTROSE 5%-WATER - 50 ML IVPB SCH ×3 (02:30→17:40)
[2020-11-09] MEDS: LEVOTHYROXINE NA 25 MCG TABLET (FP) PO SCH (06:38)
[2020-11-09] MEDS: VANCOMYCIN 250 MG/5 ML ORAL SOLUTION PEG SCH ×4 (06:40→23:57)
[2020-11-09] MEDS: ALBUTEROL SO4 2.5/IPRATROPIUM 0.5 INH SOL 3 ML VIAL.NEB. NEB SCH ×4 (08:16→20:36)
[2020-11-09] MEDS: FERROUS SO4 300 MG/5 ML ORAL SOLN UNIT DOSE CUPS GT SCH ×2 (08:59→23:54)
[2020-11-09] MEDS: ALPRAZolam 0.25 MG TABLET PO PRN (08:59)
[2020-11-09] MEDS: APIXABAN 5 MG TABLET PO SCH ×2 (09:00→23:56)
[2020-11-09] MEDS: GABAPENTIN 250 MG/5 ML ORAL SOLUTION, 470 ML BOTTLE PEG SCH ×2 (09:00→23:56)
[2020-11-09] MEDS: FOLIC ACID 1 MG TABLET (FP) GT SCH (09:00)
[2020-11-09] MEDS: MIDODRINE HCL 2.5 MG TABLET PO SCH ×3 (09:01→17:39)
[2020-11-09] MEDS: ESCITALOPRAM OXALATE 5 MG/5 ML GT SCH (09:01)
[2020-11-09] MEDS: FAMOTIDINE 40 MG/5 ML ORAL SUSPENSION PEG SCH (09:01)
[2020-11-09] MEDS: AMANTADINE HCL 100MG/10 ML UNIT DOSE CUPS PEG SCH ×2 (09:01→23:54)
[2020-11-09 09:05] LABS: HEMATOCRIT 21.3 % (32.4-45.2); MCH 29.5 pg (25.7-33.7); MCHC 32.6 g/dl (32.0-36.0); MEAN CELL VOLUME 90.4 fl (80-96); MEAN PLT VOLUME 8.8 fl (7.5-11.1); PLATELET COUNT 241 K/MM3 (134-434); RBC 2.35 M/mm3 (3.60-5.2); RDW 18.2 % (11.6-15.6); WHITE BLOOD COUNT 16.9 K/mm3 (4.0-10.0)
[2020-11-09 10:01] LABS: ALBUMIN 2.7 g/dl (3.4-5.0); BILIRUBIN,TOTAL 0.7 mg/dL (0.2-1); BLOOD UREA NITROGEN 98.4 mg/dL (7-18); CALCIUM 11.2 mg/dL (8.5-10.1); CREATININE 5.1 mg/dL (0.55-1.3); PHOSPHOROUS 3.9 mg/dL (2.5-4.9); TOT PROT 7.1 g/dl (6.4-8.2)
[2020-11-09 10:11] LABS: HEMOGLOBIN 6.9 GM/dL (10.7-15.3)
[2020-11-09] MEDS: NYSTATIN POWDER 100,000 UNITS/GM - 15 GM TOPICAL POWDER TP SCH ×2 (10:45→23:57)
[2020-11-09] MEDS ORDERED: FUROSEMIDE 100 MG/10 ML INJECTABLE VIAL IVPB ONE (13:05)
[2020-11-09] MEDS ORDERED: FUROSEMIDE INJECTION 100 MG in DEXTROSE 5%-WATER - 90 ML IVPB ONE (13:15)
[2020-11-09] MEDS ORDERED: PT OWN MED DRAWER 7, Y5N ONE ×4 (13:29→23:51)
[2020-11-09] MEDS: ACETAMINOPHEN 650 MG/20.3 ML ORAL SOLUTION (CUPS) PO PRN (17:39)
[2020-11-09] MEDS: MELATONIN 5 MG TABLETS PO PRN (23:54)
[2020-11-09] MEDS: QUEtiapine FUMARATE 25 MG TABLET PO SCH (23:55)
[2020-11-10] MEDS ORDERED: PIPERACILLIN/TAZOBACTAM 2.25 GM VIAL IVPB ONE ×2 (01:40→09:12)
[2020-11-10] MEDS ORDERED: DEXTROSE 5%-WATER - 50 ML IVPB ONE ×2 (01:40→09:12)
[2020-11-10] MEDS: PIPERACILLIN/TAZOB 2.25 GM 2.25 GM in DEXTROSE 5%-WATER - 50 ML IVPB SCH ×2 (01:55→09:55)
[2020-11-10] MEDS: LEVOTHYROXINE NA 25 MCG TABLET (FP) PO SCH (06:33)
[2020-11-10] MEDS: VANCOMYCIN 250 MG/5 ML ORAL SOLUTION PEG SCH ×4 (06:34→22:59)
[2020-11-10] MEDS ORDERED: FUROSEMIDE INJECTION 100 MG in DEXTROSE 5%-WATER - 90 ML IVPB ONE (06:45)
[2020-11-10] MEDS: ALBUTEROL SO4 2.5/IPRATROPIUM 0.5 INH SOL 3 ML VIAL.NEB. NEB SCH ×4 (07:40→20:11)
[2020-11-10] MEDS: ACETAMINOPHEN 650 MG/20.3 ML ORAL SOLUTION (CUPS) PO PRN (09:19)
[2020-11-10 09:25] LABS: BASO % 0.1 % (0-2.0); EOS % 0.6 % (0-4.5); HEMATOCRIT 26.4 % (32.4-45.2); HEMOGLOBIN 8.8 GM/dL (10.7-15.3); LYMPH % 6.6 % (8-40); MCH 29.4 pg (25.7-33.7); MCHC 33.2 g/dl (32.0-36.0); MEAN CELL VOLUME 88.6 fl (80-96); MEAN PLT VOLUME 8.6 fl (7.5-11.1); MONO % 12.6 % (3.8-10.2); NEUT % 80.1 % (42.8-82.8); PLATELET COUNT 296 K/MM3 (134-434); RBC 2.98 M/mm3 (3.60-5.2); RDW 16.6 % (11.6-15.6); WHITE BLOOD COUNT 20.5 K/mm3 (4.0-10.0)
[2020-11-10 09:44] LABS: CHLORIDE 90 mmol/L (98-107); SODIUM 127 mmol/L (136-145)
[2020-11-10] MEDS ORDERED: PT OWN MED DRAWER 7, Y5N ONE ×2 (09:50→22:47)
[2020-11-10 09:53] LABS: ALBUMIN 2.8 g/dl (3.4-5.0); ANION GAP 11 MMOL/L (8-16); CALCIUM 11.3 mg/dL (8.5-10.1); CO2 26 mmol/L (21-32); GLUCOSE,RANDOM 101 mg/dL (74-106)
[2020-11-10] MEDS: FAMOTIDINE 40 MG/5 ML ORAL SUSPENSION PEG SCH (09:53)
[2020-11-10] MEDS: MIDODRINE HCL 2.5 MG TABLET PO SCH ×3 (09:53→18:32)
[2020-11-10] MEDS: FERROUS SO4 300 MG/5 ML ORAL SOLN UNIT DOSE CUPS GT SCH ×2 (09:53→22:57)
[2020-11-10] MEDS: FOLIC ACID 1 MG TABLET (FP) GT SCH (09:53)
[2020-11-10 09:54] LABS: BLOOD UREA NITROGEN 113.2 mg/dL (7-18)
[2020-11-10] MEDS: ESCITALOPRAM OXALATE 5 MG/5 ML GT SCH (09:54)
[2020-11-10] MEDS: AMANTADINE HCL 100MG/10 ML UNIT DOSE CUPS PEG SCH ×2 (09:54→22:58)
[2020-11-10 09:56] LABS: CREATININE 5.6 mg/dL (0.55-1.3); SGOT/AST 32 U/L (15-37); SGPT/ALT 36 U/L (13-61)
[2020-11-10 09:58] LABS: BILIRUBIN,TOTAL 1.1 mg/dL (0.2-1); TOT PROT 7.6 g/dl (6.4-8.2)
[2020-11-10 09:59] LABS: ALK PHOS 482 U/L (45-117)
[2020-11-10] MEDS: GABAPENTIN 250 MG/5 ML ORAL SOLUTION, 470 ML BOTTLE PEG SCH ×2 (10:02→22:57)
[2020-11-10 11:05] LABS: ANISOCYTOSIS 1+; MACROCYTOSIS 0; OVALOCYTE 1+; PLATELET ESTIMATE NORMAL
[2020-11-10] MEDS: NYSTATIN POWDER 100,000 UNITS/GM - 15 GM TOPICAL POWDER TP SCH ×2 (12:55→22:58)
[2020-11-10] MEDS ORDERED: SODIUM CHLORIDE 250 ML IV PRN (14:30)
[2020-11-10] MEDS: ALBUMIN HUMAN 25% 12.5 GM/50 ML VIAL IVPB SCH ×4 (15:15→18:34)
[2020-11-10] MEDS: AMPICILLIN NA/SULBACTAM NA 3 GM in SODIUM CHLORIDE 100 ML IVPB SCH (18:30)
[2020-11-10] MEDS: APIXABAN 5 MG TABLET PO SCH (22:44)
[2020-11-10] MEDS: QUEtiapine FUMARATE 25 MG TABLET PO SCH (22:58)
[2020-11-11] MEDS ORDERED: LORazepam 2 MG/ML SDV VIAL IVPUSH ONE (03:15)
[2020-11-11 03:35] LABS: HEMATOCRIT 24.2 % (32.4-45.2); HEMOGLOBIN 7.8 GM/dL (10.7-15.3); MCH 28.7 pg (25.7-33.7); MCHC 32.3 g/dl (32.0-36.0); MEAN CELL VOLUME 88.9 fl (80-96); MEAN PLT VOLUME 8.5 fl (7.5-11.1); PLATELET COUNT 256 K/MM3 (134-434); RBC 2.72 M/mm3 (3.60-5.2); RDW 17.6 % (11.6-15.6)
[2020-11-11] MEDS: LEVOTHYROXINE NA 25 MCG TABLET (FP) PO SCH (06:23)
[2020-11-11] MEDS: VANCOMYCIN 250 MG/5 ML ORAL SOLUTION PEG SCH ×4 (06:23→23:13)
[2020-11-11] MEDS: ALBUTEROL SO4 2.5/IPRATROPIUM 0.5 INH SOL 3 ML VIAL.NEB. NEB SCH ×4 (07:50→20:15)
[2020-11-11] MEDS: MIDODRINE HCL 2.5 MG TABLET PO SCH ×2 (09:42→13:25)
[2020-11-11] MEDS: AMPICILLIN NA/SULBACTAM NA 3 GM in SODIUM CHLORIDE 100 ML IVPB SCH (09:47)
[2020-11-11] MEDS: FAMOTIDINE 40 MG/5 ML ORAL SUSPENSION PEG SCH (09:48)
[2020-11-11] MEDS: GABAPENTIN 250 MG/5 ML ORAL SOLUTION, 470 ML BOTTLE PEG SCH ×2 (09:48→21:23)
[2020-11-11] MEDS: APIXABAN 5 MG TABLET PO SCH (09:49)
[2020-11-11] MEDS: AMANTADINE HCL 100MG/10 ML UNIT DOSE CUPS PEG SCH ×2 (09:50→22:59)
[2020-11-11] MEDS: FOLIC ACID 1 MG TABLET (FP) GT SCH (09:55)
[2020-11-11] MEDS: ACETAMINOPHEN 650 MG/20.3 ML ORAL SOLUTION (CUPS) PO PRN (09:55)
[2020-11-11] MEDS: FERROUS SO4 300 MG/5 ML ORAL SOLN UNIT DOSE CUPS GT SCH (09:55)
[2020-11-11] MEDS: ESCITALOPRAM OXALATE 5 MG/5 ML GT SCH (09:56)
[2020-11-11] MEDS ORDERED: SODIUM CHLORIDE 0.9% 500 ML INFUS.BAG IV ONE ×2 (10:00→16:50)
[2020-11-11] MEDS ORDERED: ALPRAZolam 0.25 MG TABLET PO PRN (10:52)
[2020-11-11 11:09] LABS: ALBUMIN 2.9 g/dl (3.4-5.0)
[2020-11-11 11:11] LABS: CREATININE 3.2 mg/dL (0.55-1.3)
[2020-11-11 11:13] LABS: BILIRUBIN,TOTAL 0.9 mg/dL (0.2-1); TOT PROT 7.2 g/dl (6.4-8.2)
[2020-11-11 11:14] LABS: BLOOD UREA NITROGEN 52.9 mg/dL (7-18); CALCIUM 9.6 mg/dL (8.5-10.1)
[2020-11-11] MEDS: NYSTATIN POWDER 100,000 UNITS/GM - 15 GM TOPICAL POWDER TP SCH ×2 (13:26→22:59)
[2020-11-11] MEDS ORDERED: SODIUM CHLORIDE 500 ML IV STA (13:48)
[2020-11-11] MEDS ORDERED: DEXTROSE 50%-WATER 25 GM/50 ML DISP.SYRIN ONE (13:50)
[2020-11-11 14:11] LABS: ARTERIAL BLD GAS O2 SATURATION 98.6 mmHg (95-98); ARTERIAL BLOOD GAS BASE EXCESS -1.3 mmol/L (-2-2); ARTERIAL BLOOD GAS pH 7.384 (7.350-7.450)
[2020-11-11 14:13] LABS: ALLENS TEST POSITIVE
[2020-11-11 14:15] LABS: VENT MODE AC; VENT RATE 20
[2020-11-11] MEDS ORDERED: VASOPRESSIN 40 UNITS in SODIUM CHLORIDE 98 ML IVPB SCH (14:30)
[2020-11-11] MEDS ORDERED: DEXTROSE 5%-0.45% SALINE 1,000 ML IV SCH ×2 (14:45→15:53)
[2020-11-11 15:48] LABS: BASO % 0.4 % (0-2.0); EOS % 0.8 % (0-4.5); HEMATOCRIT 22.7 % (32.4-45.2); HEMOGLOBIN 7.4 GM/dL (10.7-15.3); LYMPH % 5.6 % (8-40); MCH 29.2 pg (25.7-33.7); MCHC 32.8 g/dl (32.0-36.0); MEAN PLT VOLUME 8.6 fl (7.5-11.1); MONO % 11.2 % (3.8-10.2); PLATELET COUNT 281 K/MM3 (134-434); RBC 2.55 M/mm3 (3.60-5.2); RDW 17.4 % (11.6-15.6); WHITE BLOOD COUNT 14.7 K/mm3 (4.0-10.0)
[2020-11-11] MEDS ORDERED: MELATONIN 5 MG TABLETS PO PRN (15:53)
[2020-11-11] MEDS ORDERED: ACETAMINOPHEN 650 MG/20.3 ML ORAL SOLUTION (CUPS) PO PRN (15:53)
[2020-11-11] MEDS ORDERED: NOREPINEPHRINE BITARTRATE 16,000 MCG in SODIUM CHLORIDE 484 ML IV SCH (17:00)
[2020-11-11] MEDS ORDERED: NOREPINEPHRINE BITARTRATE 8,000 MCG/500 ML BAG IVPB ONE (17:11)
[2020-11-11] MEDS ORDERED: ACETAMINOPHEN 650 MG/20.3 ML ORAL SOLUTION (CUPS) PEG PRN (17:49)
[2020-11-11] MEDS: VASOPRESSIN 40 UNITS in SODIUM CHLORIDE 98 ML IVPB SCH (18:12)
[2020-11-11] MEDS: MIDODRINE HCL 2.5 MG TABLET PEG SCH (18:15)
[2020-11-11] MEDS: NOREPINEPHRINE BITARTRATE 8,000 MCG/500 ML BAG IVPB SCH (20:26)
[2020-11-11 20:35] LABS: BASO % 0.2 % (0-2.0); EOS % 1.7 % (0-4.5); HEMATOCRIT 21.6 % (32.4-45.2); HEMOGLOBIN 7.1 GM/dL (10.7-15.3); LYMPH % 5.9 % (8-40); MCH 29.2 pg (25.7-33.7); MCHC 32.8 g/dl (32.0-36.0); MEAN CELL VOLUME 89.1 fl (80-96); MEAN PLT VOLUME 8.4 fl (7.5-11.1); NEUT % 79.2 % (42.8-82.8); PLATELET COUNT 263 K/MM3 (134-434); RBC 2.42 M/mm3 (3.60-5.2); RDW 17.5 % (11.6-15.6)
[2020-11-11 20:39] LABS: INR 2.25 (0.83-1.09)
[2020-11-11 20:42] LABS: ACTIVATED PTT 37.9 SECONDS (25.2-36.5)
[2020-11-11 20:49] LABS: CALCIUM 9.2 mg/dL (8.5-10.1)
[2020-11-11 20:50] LABS: ALBUMIN 2.5 g/dl (3.4-5.0)
[2020-11-11 20:53] LABS: CREATININE 3.3 mg/dL (0.55-1.3)
[2020-11-11 20:55] LABS: BILIRUBIN,TOTAL 0.6 mg/dL (0.2-1); TOT PROT 6.1 g/dl (6.4-8.2)
[2020-11-11] MEDS ORDERED: PT OWN MED DRAWER 7, Y5N ONE (21:06)
[2020-11-11] MEDS: CHLORHEXIDINE GLUCONATE 4% CLEANSER FOR DECOLONIZATION TP SCH (21:21)
[2020-11-11] MEDS: MUPIROCIN 2% TOPICAL OINTMENT FOR DECOLONIZATION NS SCH (21:21)
[2020-11-11] MEDS: QUEtiapine FUMARATE 25 MG TABLET PEG SCH (21:22)
[2020-11-11] MEDS ORDERED: APIXABAN 5 MG TABLET PEG SCH (22:00)
[2020-11-11] MEDS: KCL 10 MEQ IVPB 10 MEQ/100 ML INFUS.BAG IVPB SCH (23:01)
[2020-11-12] MEDS: KCL 10 MEQ IVPB 10 MEQ/100 ML INFUS.BAG IVPB SCH (00:03)
[2020-11-12] MEDS: VANCOMYCIN 250 MG/5 ML ORAL SOLUTION PEG SCH ×4 (00:05→21:12)
[2020-11-12 01:18] LABS: BASO % 0.4 % (0-2.0); EOS % 1.3 % (0-4.5); HEMATOCRIT 23.6 % (32.4-45.2); HEMOGLOBIN 7.6 GM/dL (10.7-15.3); LYMPH % 4.3 % (8-40); MCH 29.2 pg (25.7-33.7); MCHC 32.4 g/dl (32.0-36.0); MEAN PLT VOLUME 8.8 fl (7.5-11.1); MONO % 13.4 % (3.8-10.2); NEUT % 80.6 % (42.8-82.8); PLATELET COUNT 298 K/MM3 (134-434); RBC 2.62 M/mm3 (3.60-5.2); RDW 17.4 % (11.6-15.6); WHITE BLOOD COUNT 14.9 K/mm3 (4.0-10.0)
[2020-11-12] MEDS ORDERED: ACETAMINOPHEN 1000 MG/100 ML VIAL (NON FORMULARY) IVPB ONE (04:15)
[2020-11-12] MEDS ORDERED: PT OWN MED DRAWER 7, Y5N ONE ×4 (06:12→21:09)
[2020-11-12] MEDS: LEVOTHYROXINE NA 25 MCG TABLET (FP) GT SCH (06:14)
[2020-11-12 07:43] LABS: BASO % 0.4 % (0-2.0); EOS % 1.3 % (0-4.5); HEMATOCRIT 23.6 % (32.4-45.2); HEMOGLOBIN 7.8 GM/dL (10.7-15.3); LYMPH % 5.4 % (8-40); MCH 29.3 pg (25.7-33.7); MCHC 32.9 g/dl (32.0-36.0); MEAN CELL VOLUME 89.1 fl (80-96); MEAN PLT VOLUME 9.1 fl (7.5-11.1); MONO % 11.2 % (3.8-10.2); NEUT % 81.7 % (42.8-82.8); PLATELET COUNT 304 K/MM3 (134-434); RBC 2.65 M/mm3 (3.60-5.2); RDW 17.7 % (11.6-15.6); WHITE BLOOD COUNT 14.7 K/mm3 (4.0-10.0)
[2020-11-12 07:49] LABS: CALCIUM 8.9 mg/dL (8.5-10.1)
[2020-11-12 07:50] LABS: ALBUMIN 2.6 g/dl (3.4-5.0); MAGNESIUM 1.7 mg/dL (1.8-2.4)
[2020-11-12 07:51] LABS: CREATININE 3.5 mg/dL (0.55-1.3)
[2020-11-12 07:53] LABS: BILIRUBIN,TOTAL 0.8 mg/dL (0.2-1); PHOSPHOROUS 3.4 mg/dL (2.5-4.9); TOT PROT 6.5 g/dl (6.4-8.2)
[2020-11-12] MEDS: ALBUTEROL SO4 2.5/IPRATROPIUM 0.5 INH SOL 3 ML VIAL.NEB. NEB SCH ×2 (08:20→20:28)
[2020-11-12] MEDS ORDERED: MAGNESIUM SULF 50% (8.12 MEQ/2 ML-1 GM VIAL) IVPB ONE (08:53)
[2020-11-12] MEDS: GABAPENTIN 250 MG/5 ML ORAL SOLUTION, 470 ML BOTTLE PEG SCH ×2 (10:23→21:05)
[2020-11-12] MEDS: ESCITALOPRAM OXALATE 5 MG/5 ML PEG SCH (10:24)
[2020-11-12] MEDS: MIDODRINE HCL 2.5 MG TABLET PEG SCH (10:24)
[2020-11-12] MEDS: FAMOTIDINE 40 MG/5 ML ORAL SUSPENSION PEG SCH (10:24)
[2020-11-12] MEDS: AMANTADINE HCL 100MG/10 ML UNIT DOSE CUPS PEG SCH (10:24)
[2020-11-12] MEDS: FOLIC ACID 1 MG TABLET (FP) PEG SCH (10:26)
[2020-11-12] MEDS: MUPIROCIN 2% TOPICAL OINTMENT FOR DECOLONIZATION NS SCH ×2 (10:26→21:06)
[2020-11-12] MEDS: NYSTATIN POWDER 100,000 UNITS/GM - 15 GM TOPICAL POWDER TP SCH ×2 (10:26→21:13)
[2020-11-12 11:03] LABS: ANISOCYTOSIS 0; MACROCYTOSIS 0; OVALOCYTE 1+; PLATELET ESTIMATE NORMAL
[2020-11-12] MEDS: AMPICILLIN NA/SULBACTAM NA 3 GM in SODIUM CHLORIDE 100 ML IVPB SCH (11:30)
[2020-11-12] MEDS ORDERED: MIDODRINE HCL 5 MG TABLET PEG SCH (11:45)
[2020-11-12] MEDS ORDERED: SODIUM CHLORIDE 1,000 ML IV SCH (12:30)
[2020-11-12] MEDS: MIDODRINE HCL 5 MG TABLET PEG SCH ×2 (13:02→21:12)
[2020-11-12] MEDS: VASOPRESSIN 40 UNITS in SODIUM CHLORIDE 98 ML IVPB SCH (16:14)
[2020-11-12] MEDS: NOREPINEPHRINE BITARTRATE 8,000 MCG/500 ML BAG IVPB SCH (21:06)
[2020-11-12] MEDS: CHLORHEXIDINE GLUCONATE 4% CLEANSER FOR DECOLONIZATION TP SCH (21:06)
[2020-11-12] MEDS: QUEtiapine FUMARATE 25 MG TABLET PEG SCH (21:13)
[2020-11-12] MEDS ORDERED: APIXABAN 5 MG TABLET PEG SCH (22:00)
[2020-11-13] MEDS ORDERED: PT OWN MED DRAWER 7, Y5N ONE ×4 (01:16→21:26)
[2020-11-13] MEDS: LEVOTHYROXINE NA 25 MCG TABLET (FP) GT SCH (06:06)
[2020-11-13] MEDS: VANCOMYCIN 250 MG/5 ML ORAL SOLUTION PEG SCH ×3 (06:06→17:59)
[2020-11-13 06:45] LABS: BASO % 0.5 % (0-2.0); EOS % 2.7 % (0-4.5); HEMATOCRIT 25.4 % (32.4-45.2); HEMOGLOBIN 8.2 GM/dL (10.7-15.3); MCHC 32.2 g/dl (32.0-36.0); MEAN PLT VOLUME 8.7 fl (7.5-11.1); MONO % 8.7 % (3.8-10.2); NEUT % 83.1 % (42.8-82.8); PLATELET COUNT 367 K/MM3 (134-434); RBC 2.82 M/mm3 (3.60-5.2); RDW 17.9 % (11.6-15.6); WHITE BLOOD COUNT 13.9 K/mm3 (4.0-10.0)
[2020-11-13 07:07] LABS: CALCIUM 9.4 mg/dL (8.5-10.1)
[2020-11-13 07:08] LABS: ALBUMIN 2.5 g/dl (3.4-5.0); BLOOD UREA NITROGEN 59.8 mg/dL (7-18); MAGNESIUM 2.2 mg/dL (1.8-2.4)
[2020-11-13 07:11] LABS: CREATININE 3.6 mg/dL (0.55-1.3); PHOSPHOROUS 4.6 mg/dL (2.5-4.9)
[2020-11-13 07:13] LABS: BILIRUBIN,TOTAL 1.4 mg/dL (0.2-1); TOT PROT 6.5 g/dl (6.4-8.2)
[2020-11-13] MEDS: ALBUTEROL SO4 2.5/IPRATROPIUM 0.5 INH SOL 3 ML VIAL.NEB. NEB SCH ×3 (08:25→15:29)
[2020-11-13] MEDS: AMPICILLIN NA/SULBACTAM NA 3 GM in SODIUM CHLORIDE 100 ML IVPB SCH (09:57)
[2020-11-13] MEDS: FOLIC ACID 1 MG TABLET (FP) PEG SCH (10:00)
[2020-11-13] MEDS: MUPIROCIN 2% TOPICAL OINTMENT FOR DECOLONIZATION NS SCH ×2 (10:00→22:07)
[2020-11-13] MEDS: NYSTATIN POWDER 100,000 UNITS/GM - 15 GM TOPICAL POWDER TP SCH ×2 (10:00→22:07)
[2020-11-13] MEDS: MIDODRINE HCL 5 MG TABLET PEG SCH ×3 (10:01→17:59)
[2020-11-13] MEDS: GABAPENTIN 250 MG/5 ML ORAL SOLUTION, 470 ML BOTTLE PEG SCH ×2 (10:07→22:08)
[2020-11-13] MEDS: ESCITALOPRAM OXALATE 5 MG/5 ML PEG SCH (10:08)
[2020-11-13] MEDS: FAMOTIDINE 40 MG/5 ML ORAL SUSPENSION PEG SCH (10:08)
[2020-11-13] MEDS ORDERED: SODIUM CHLORIDE 1,000 ML IV SCH (11:27)
[2020-11-13] MEDS: VASOPRESSIN 40 UNITS in SODIUM CHLORIDE 98 ML IVPB SCH (17:41)
[2020-11-13] MEDS: QUEtiapine FUMARATE 25 MG TABLET PEG SCH (22:07)
[2020-11-13] MEDS: CHLORHEXIDINE GLUCONATE 4% CLEANSER FOR DECOLONIZATION TP SCH (22:07)
[2020-11-13] MEDS: NOREPINEPHRINE BITARTRATE 8,000 MCG/500 ML BAG IVPB SCH (22:08)
[2020-11-14] MEDS: VANCOMYCIN 250 MG/5 ML ORAL SOLUTION PEG SCH ×4 (00:43→17:38)
[2020-11-14] MEDS: LEVOTHYROXINE NA 25 MCG TABLET (FP) GT SCH (06:25)
[2020-11-14 06:37] LABS: BASO % 0.5 % (0-2.0); EOS % 1.8 % (0-4.5); HEMATOCRIT 26.2 % (32.4-45.2); HEMOGLOBIN 8.5 GM/dL (10.7-15.3); LYMPH % 5.2 % (8-40); MCH 29.4 pg (25.7-33.7); MCHC 32.4 g/dl (32.0-36.0); MEAN CELL VOLUME 90.9 fl (80-96); MEAN PLT VOLUME 8.3 fl (7.5-11.1); MONO % 10.8 % (3.8-10.2); NEUT % 81.7 % (42.8-82.8); PLATELET COUNT 433 K/MM3 (134-434); RBC 2.88 M/mm3 (3.60-5.2); RDW 18.2 % (11.6-15.6); WHITE BLOOD COUNT 12.7 K/mm3 (4.0-10.0)
[2020-11-14 06:59] LABS: CALCIUM 9.4 mg/dL (8.5-10.1)
[2020-11-14 07:00] LABS: ALBUMIN 2.4 g/dl (3.4-5.0); BLOOD UREA NITROGEN 61.3 mg/dL (7-18); MAGNESIUM 1.9 mg/dL (1.8-2.4)
[2020-11-14 07:03] LABS: CREATININE 3.5 mg/dL (0.55-1.3); PHOSPHOROUS 5.5 mg/dL (2.5-4.9)
[2020-11-14 07:04] LABS: BILIRUBIN,TOTAL 0.8 mg/dL (0.2-1)
[2020-11-14 07:05] LABS: TOT PROT 6.4 g/dl (6.4-8.2)
[2020-11-14] MEDS: ALBUTEROL SO4 2.5/IPRATROPIUM 0.5 INH SOL 3 ML VIAL.NEB. NEB SCH ×5 (07:20→20:42)
[2020-11-14] MEDS ORDERED: DEXTROSE 50%-WATER - 25 GM/50 ML VIAL IVPUSH ONE (07:45)
[2020-11-14] MEDS ORDERED: DEXTROSE 50%-WATER - 25 GM/50 ML VIAL IVPUSH PRN (08:38)
[2020-11-14] MEDS ORDERED: DEXTROSE 50%-WATER 25 GM/50 ML DISP.SYRIN ONE (08:41)
[2020-11-14] MEDS ORDERED: PT OWN MED DRAWER 7, Y5N ONE ×2 (09:21→17:33)
[2020-11-14] MEDS: AMPICILLIN NA/SULBACTAM NA 3 GM in SODIUM CHLORIDE 100 ML IVPB SCH (09:29)
[2020-11-14] MEDS: AMANTADINE HCL 100MG/10 ML UNIT DOSE CUPS PEG SCH (09:30)
[2020-11-14] MEDS: FOLIC ACID 1 MG TABLET (FP) PEG SCH (09:31)
[2020-11-14] MEDS: MIDODRINE HCL 5 MG TABLET PEG SCH ×3 (09:31→17:38)
[2020-11-14] MEDS: DEXTROSE 5%-NORMAL SALINE 1,000 ML IV SCH (09:32)
[2020-11-14] MEDS: ESCITALOPRAM OXALATE 5 MG/5 ML PEG SCH (09:33)
[2020-11-14] MEDS: FAMOTIDINE 40 MG/5 ML ORAL SUSPENSION PEG SCH (09:34)
[2020-11-14] MEDS: MUPIROCIN 2% TOPICAL OINTMENT FOR DECOLONIZATION NS SCH ×2 (09:35→21:42)
[2020-11-14] MEDS ORDERED: ALPRAZolam 0.25 MG TABLET PO PRN (11:15)
[2020-11-14] MEDS: GABAPENTIN 250 MG/5 ML ORAL SOLUTION, 470 ML BOTTLE PEG SCH ×2 (12:13→21:47)
[2020-11-14] MEDS ORDERED: SODIUM CHLORIDE 250 ML IV PRN (12:28)
[2020-11-14 14:09] LABS: ANISOCYTOSIS 1+; MACROCYTOSIS 1+; PLATELET ESTIMATE NORMAL
[2020-11-14] MEDS: NYSTATIN POWDER 100,000 UNITS/GM - 15 GM TOPICAL POWDER TP SCH ×2 (16:21→21:48)
[2020-11-14] MEDS: NOREPINEPHRINE BITARTRATE 8,000 MCG/500 ML BAG IVPB SCH (21:42)
[2020-11-14] MEDS: CHLORHEXIDINE GLUCONATE 4% CLEANSER FOR DECOLONIZATION TP SCH (21:43)
[2020-11-14] MEDS: QUEtiapine FUMARATE 25 MG TABLET PEG SCH (21:47)
[2020-11-14] MEDS: APIXABAN 5 MG TABLET PEG SCH ×3 (21:47→22:26)
[2020-11-15] MEDS: VANCOMYCIN 250 MG/5 ML ORAL SOLUTION PEG SCH ×4 (00:59→17:34)
[2020-11-15] MEDS: LEVOTHYROXINE NA 25 MCG TABLET (FP) GT SCH (06:28)
[2020-11-15 06:50] LABS: BASO % 0.8 % (0-2.0); EOS % 3.1 % (0-4.5); HEMATOCRIT 27.6 % (32.4-45.2); HEMOGLOBIN 9.1 GM/dL (10.7-15.3); MCH 29.7 pg (25.7-33.7); MCHC 33.1 g/dl (32.0-36.0); MEAN CELL VOLUME 89.7 fl (80-96); MEAN PLT VOLUME 7.9 fl (7.5-11.1); MONO % 13.6 % (3.8-10.2); NEUT % 76.5 % (42.8-82.8); PLATELET COUNT 449 K/MM3 (134-434); RBC 3.07 M/mm3 (3.60-5.2); RDW 18.5 % (11.6-15.6); WHITE BLOOD COUNT 11.7 K/mm3 (4.0-10.0)
[2020-11-15] MEDS ORDERED: SODIUM CHLORIDE 250 ML IV PRN (07:00)
[2020-11-15 07:22] LABS: CALCIUM 8.8 mg/dL (8.5-10.1)
[2020-11-15 07:23] LABS: ALBUMIN 2.6 g/dl (3.4-5.0); MAGNESIUM 1.7 mg/dL (1.8-2.4)
[2020-11-15 07:26] LABS: BILIRUBIN,TOTAL 0.7 mg/dL (0.2-1); CREATININE 2.7 mg/dL (0.55-1.3)
[2020-11-15 07:27] LABS: TOT PROT 6.6 g/dl (6.4-8.2)
[2020-11-15 07:29] LABS: BLOOD UREA NITROGEN 35.8 mg/dL (7-18)
[2020-11-15 07:42] LABS: INR 1.94 (0.83-1.09)
[2020-11-15 07:44] LABS: ACTIVATED PTT 38.6 SECONDS (25.2-36.5)
[2020-11-15] MEDS: ALBUMIN HUMAN 25% 12.5 GM/50 ML VIAL IVPB SCH ×4 (07:45→08:53)
[2020-11-15] MEDS ORDERED: MAGNESIUM SULF 50% (8.12 MEQ/2 ML-1 GM VIAL) IVPB ONE (08:11)
[2020-11-15] MEDS: ALBUTEROL SO4 2.5/IPRATROPIUM 0.5 INH SOL 3 ML VIAL.NEB. NEB SCH ×4 (08:32→20:30)
[2020-11-15] MEDS ORDERED: POTASSIUM CHLORIDE 20 MEQ PREMIX IVPB 100 ML IVPB SCH (09:00)
[2020-11-15] MEDS ORDERED: PT OWN MED DRAWER 7, Y5N ONE ×3 (10:00→16:22)
[2020-11-15] MEDS ORDERED: ALPRAZolam 1 MG TABLET PO PRN (10:00)
[2020-11-15] MEDS: GABAPENTIN 250 MG/5 ML ORAL SOLUTION, 470 ML BOTTLE PEG SCH ×2 (10:12→21:34)
[2020-11-15] MEDS: FAMOTIDINE 40 MG/5 ML ORAL SUSPENSION PEG SCH (10:13)
[2020-11-15] MEDS: ESCITALOPRAM OXALATE 5 MG/5 ML PEG SCH (10:13)
[2020-11-15] MEDS: FOLIC ACID 1 MG TABLET (FP) PEG SCH (10:15)
[2020-11-15] MEDS: APIXABAN 5 MG TABLET PEG SCH (10:15)
[2020-11-15] MEDS: NYSTATIN POWDER 100,000 UNITS/GM - 15 GM TOPICAL POWDER TP SCH ×2 (10:15→21:34)
[2020-11-15] MEDS: MIDODRINE HCL 5 MG TABLET PEG SCH ×3 (10:19→17:34)
[2020-11-15] MEDS: MUPIROCIN 2% TOPICAL OINTMENT FOR DECOLONIZATION NS SCH ×2 (10:19→21:34)
[2020-11-15] MEDS: AMPICILLIN NA/SULBACTAM NA 3 GM in SODIUM CHLORIDE 100 ML IVPB SCH (12:19)
[2020-11-15] MEDS: DEXTROSE 5%-NORMAL SALINE 1,000 ML IV SCH (12:19)
[2020-11-15] MEDS ORDERED: MIDAZOLAM HCL 5 MG/1 ML Single Dose Vial ONE (13:43)
[2020-11-15 14:47] LABS: HEMATOCRIT 23.2 % (32.4-45.2); HEMOGLOBIN 7.4 GM/dL (10.7-15.3); MCH 29.2 pg (25.7-33.7); MCHC 31.8 g/dl (32.0-36.0); MEAN CELL VOLUME 91.6 fl (80-96); MEAN PLT VOLUME 7.7 fl (7.5-11.1); PLATELET COUNT 287 K/MM3 (134-434); RBC 2.53 M/mm3 (3.60-5.2); RDW 18.2 % (11.6-15.6); WHITE BLOOD COUNT 12.8 K/mm3 (4.0-10.0)
[2020-11-15] MEDS ORDERED: MIDAZOLAM HCL 2 MG/2 ML SINGLE DOSE VIAL IVPUSH ONE (18:50)
[2020-11-15] MEDS: NOREPINEPHRINE BITARTRATE 8,000 MCG/500 ML BAG IVPB SCH (21:14)
[2020-11-15] MEDS: CHLORHEXIDINE GLUCONATE 4% CLEANSER FOR DECOLONIZATION TP SCH (21:34)
[2020-11-15] MEDS: QUEtiapine FUMARATE 25 MG TABLET PEG SCH (21:34)
[2020-11-15] MEDS: ALPRAZolam 0.25 MG TABLET PO SCH (21:35)
[2020-11-15 23:20] LABS: EOS % 3.2 % (0-4.5); HEMATOCRIT 26.3 % (32.4-45.2); HEMOGLOBIN 8.5 GM/dL (10.7-15.3); LYMPH % 4.4 % (8-40); MCH 29.2 pg (25.7-33.7); MCHC 32.4 g/dl (32.0-36.0); MEAN CELL VOLUME 90.1 fl (80-96); MEAN PLT VOLUME 7.9 fl (7.5-11.1); MONO % 11.1 % (3.8-10.2); NEUT % 80.3 % (42.8-82.8); PLATELET COUNT 277 K/MM3 (134-434); RBC 2.92 M/mm3 (3.60-5.2); RDW 17.6 % (11.6-15.6); WHITE BLOOD COUNT 11.1 K/mm3 (4.0-10.0)
[2020-11-16] MEDS: VANCOMYCIN 250 MG/5 ML ORAL SOLUTION PEG SCH ×4 (00:38→17:58)
[2020-11-16] MEDS: LEVOTHYROXINE NA 25 MCG TABLET (FP) GT SCH (06:08)
[2020-11-16 07:02] LABS: BASO % 0.5 % (0-2.0); EOS % 3.1 % (0-4.5); HEMATOCRIT 27.3 % (32.4-45.2); LYMPH % 4.9 % (8-40); MCH 29.7 pg (25.7-33.7); MCHC 33.1 g/dl (32.0-36.0); MEAN CELL VOLUME 89.6 fl (80-96); MEAN PLT VOLUME 8.3 fl (7.5-11.1); MONO % 10.4 % (3.8-10.2); NEUT % 81.1 % (42.8-82.8); PLATELET COUNT 312 K/MM3 (134-434); RBC 3.04 M/mm3 (3.60-5.2); RDW 17.4 % (11.6-15.6); WHITE BLOOD COUNT 14.8 K/mm3 (4.0-10.0)
[2020-11-16 07:31] LABS: CALCIUM 8.6 mg/dL (8.5-10.1)
[2020-11-16 07:32] LABS: ALBUMIN 2.7 g/dl (3.4-5.0); BLOOD UREA NITROGEN 39.2 mg/dL (7-18)
[2020-11-16 07:33] LABS: MAGNESIUM 2.2 mg/dL (1.8-2.4)
[2020-11-16 07:35] LABS: CREATININE 2.9 mg/dL (0.55-1.3); PHOSPHOROUS 4.4 mg/dL (2.5-4.9)
[2020-11-16 07:36] LABS: BILIRUBIN,TOTAL 0.6 mg/dL (0.2-1); TOT PROT 6.4 g/dl (6.4-8.2)
[2020-11-16] MEDS: ALBUTEROL SO4 2.5/IPRATROPIUM 0.5 INH SOL 3 ML VIAL.NEB. NEB SCH ×4 (08:20→20:45)
[2020-11-16] MEDS ORDERED: PT OWN MED DRAWER 7, Y5N ONE ×2 (09:40→21:23)
[2020-11-16] MEDS: PANTOPRAZOLE SODIUM 40 MG VIAL IVPUSH SCH (10:41)
[2020-11-16] MEDS: MIDODRINE HCL 5 MG TABLET PEG SCH ×3 (10:42→17:58)
[2020-11-16] MEDS: AMANTADINE HCL 100MG/10 ML UNIT DOSE CUPS PEG SCH (10:42)
[2020-11-16] MEDS: ESCITALOPRAM OXALATE 5 MG/5 ML PEG SCH (10:43)
[2020-11-16] MEDS: FAMOTIDINE 40 MG/5 ML ORAL SUSPENSION PEG SCH (10:43)
[2020-11-16] MEDS: MUPIROCIN 2% TOPICAL OINTMENT FOR DECOLONIZATION NS SCH (10:43)
[2020-11-16] MEDS: DEXTROSE 5%-NORMAL SALINE 1,000 ML IV SCH (10:43)
[2020-11-16] MEDS: FOLIC ACID 1 MG TABLET (FP) PEG SCH (10:43)
[2020-11-16] MEDS: AMPICILLIN NA/SULBACTAM NA 3 GM in SODIUM CHLORIDE 100 ML IVPB SCH (10:44)
[2020-11-16] MEDS: ALPRAZolam 0.25 MG TABLET PO SCH ×2 (10:45→22:24)
[2020-11-16] MEDS: NYSTATIN POWDER 100,000 UNITS/GM - 15 GM TOPICAL POWDER TP SCH ×2 (10:58→22:23)
[2020-11-16] MEDS: GABAPENTIN 250 MG/5 ML ORAL SOLUTION, 470 ML BOTTLE PEG SCH ×2 (10:58→22:32)
[2020-11-16] MEDS ORDERED: IRON SUCROSE INJECTION 200 MG in SODIUM CHLORIDE 90 ML IVPB ONE (14:15)
[2020-11-16] MEDS: CHLORHEXIDINE GLUCONATE 4% CLEANSER FOR DECOLONIZATION TP SCH (22:23)
[2020-11-16] MEDS: QUEtiapine FUMARATE 25 MG TABLET PEG SCH (22:24)
[2020-11-16] MEDS: APIXABAN 5 MG TABLET PEG SCH (22:59)
[2020-11-17] MEDS: VANCOMYCIN 250 MG/5 ML ORAL SOLUTION PEG SCH ×2 (00:59→07:00)
[2020-11-17] MEDS ORDERED: DEXTROSE 50%-WATER 25 GM/50 ML DISP.SYRIN ONE ×2 (02:07→14:09)
[2020-11-17] MEDS ORDERED: DEXTROSE 50%-WATER - 25 GM/50 ML VIAL IVPUSH ONE (06:14)
[2020-11-17] MEDS ORDERED: DEXTROSE 5%-WATER - 1,000 ML IV SCH (06:15)
[2020-11-17] MEDS: LEVOTHYROXINE NA 25 MCG TABLET (FP) GT SCH (06:29)
[2020-11-17] MEDS: ALBUTEROL SO4 2.5/IPRATROPIUM 0.5 INH SOL 3 ML VIAL.NEB. NEB SCH ×4 (07:15→20:20)
[2020-11-17 07:36] LABS: HEMATOCRIT 25.4 % (32.4-45.2); HEMOGLOBIN 8.7 GM/dL (10.7-15.3); MCH 30.5 pg (25.7-33.7); MCHC 34.4 g/dl (32.0-36.0); MEAN CELL VOLUME 88.6 fl (80-96); MEAN PLT VOLUME 7.9 fl (7.5-11.1); PLATELET COUNT 340 K/MM3 (134-434); RBC 2.86 M/mm3 (3.60-5.2); RDW 17.9 % (11.6-15.6); WHITE BLOOD COUNT 10.1 K/mm3 (4.0-10.0)
[2020-11-17 07:52] LABS: CALCIUM 9.1 mg/dL (8.5-10.1)
[2020-11-17 07:53] LABS: ALBUMIN 2.5 g/dl (3.4-5.0); BLOOD UREA NITROGEN 40.5 mg/dL (7-18); MAGNESIUM 2.2 mg/dL (1.8-2.4)
[2020-11-17 07:56] LABS: CREATININE 3.1 mg/dL (0.55-1.3); PHOSPHOROUS 4.2 mg/dL (2.5-4.9)
[2020-11-17 07:58] LABS: BILIRUBIN,TOTAL 0.5 mg/dL (0.2-1); TOT PROT 6.4 g/dl (6.4-8.2)
[2020-11-17] MEDS ORDERED: PT OWN MED DRAWER 7, Y5N ONE ×2 (09:20→10:00)
[2020-11-17] MEDS: PANTOPRAZOLE SODIUM 40 MG VIAL IVPUSH SCH (09:31)
[2020-11-17] MEDS: FOLIC ACID 1 MG TABLET (FP) PEG SCH (09:32)
[2020-11-17] MEDS: MIDODRINE HCL 5 MG TABLET PEG SCH ×3 (09:33→17:39)
[2020-11-17] MEDS: GABAPENTIN 250 MG/5 ML ORAL SOLUTION, 470 ML BOTTLE PEG SCH ×2 (09:35→21:58)
[2020-11-17] MEDS: APIXABAN 5 MG TABLET PEG SCH (09:43)
[2020-11-17] MEDS: NYSTATIN POWDER 100,000 UNITS/GM - 15 GM TOPICAL POWDER TP SCH ×2 (09:54→22:00)
[2020-11-17] MEDS: ESCITALOPRAM OXALATE 5 MG/5 ML PEG SCH (09:54)
[2020-11-17] MEDS: FAMOTIDINE 40 MG/5 ML ORAL SUSPENSION PEG SCH (09:54)
[2020-11-17] MEDS: AMPICILLIN NA/SULBACTAM NA 3 GM in SODIUM CHLORIDE 100 ML IVPB SCH (12:20)
[2020-11-17] MEDS: ALPRAZolam 0.25 MG TABLET PO SCH ×2 (12:20→22:02)
[2020-11-17] MEDS ORDERED: DEXTROSE 50%-WATER - 25 GM/50 ML VIAL IVPUSH PRN (17:19)
[2020-11-17] MEDS ORDERED: FUROSEMIDE 40 MG/4 ML INJECTABLE VIAL IVPUSH ONE (17:38)
[2020-11-17] MEDS: CHLORHEXIDINE GLUCONATE 4% CLEANSER FOR DECOLONIZATION TP SCH (21:58)
[2020-11-17] MEDS: APIXABAN 2.5 MG TABLET PO SCH (21:58)
[2020-11-17] MEDS: QUEtiapine FUMARATE 25 MG TABLET PEG SCH (22:02)
[2020-11-18 06:44] LABS: BASO % 0.2 % (0-2.0); EOS % 2.3 % (0-4.5); HEMATOCRIT 26.7 % (32.4-45.2); HEMOGLOBIN 8.8 GM/dL (10.7-15.3); LYMPH % 6.3 % (8-40); MCHC 33.1 g/dl (32.0-36.0); MEAN CELL VOLUME 90.5 fl (80-96); MEAN PLT VOLUME 8.2 fl (7.5-11.1); MONO % 15.6 % (3.8-10.2); NEUT % 75.6 % (42.8-82.8); PLATELET COUNT 390 K/MM3 (134-434); RBC 2.94 M/mm3 (3.60-5.2); RDW 19.3 % (11.6-15.6); WHITE BLOOD COUNT 11.4 K/mm3 (4.0-10.0)
[2020-11-18] MEDS: LEVOTHYROXINE NA 25 MCG TABLET (FP) GT SCH (06:46)
[2020-11-18 07:07] LABS: ALBUMIN 2.5 g/dl (3.4-5.0); BLOOD UREA NITROGEN 48.1 mg/dL (7-18); CALCIUM 9.6 mg/dL (8.5-10.1)
[2020-11-18 07:08] LABS: MAGNESIUM 2.1 mg/dL (1.8-2.4)
[2020-11-18 07:10] LABS: CREATININE 3.4 mg/dL (0.55-1.3)
[2020-11-18 07:11] LABS: BILIRUBIN,TOTAL 0.5 mg/dL (0.2-1); PHOSPHOROUS 5.4 mg/dL (2.5-4.9)
[2020-11-18 07:12] LABS: TOT PROT 6.7 g/dl (6.4-8.2)
[2020-11-18] MEDS: ALBUTEROL SO4 2.5/IPRATROPIUM 0.5 INH SOL 3 ML VIAL.NEB. NEB SCH ×4 (08:20→21:00)
[2020-11-18] MEDS ORDERED: PT OWN MED DRAWER 7, Y5N ONE (09:32)
[2020-11-18] MEDS: AMANTADINE HCL 100MG/10 ML UNIT DOSE CUPS PEG SCH (09:53)
[2020-11-18] MEDS: ESCITALOPRAM OXALATE 5 MG/5 ML PEG SCH (09:53)
[2020-11-18] MEDS: FAMOTIDINE 40 MG/5 ML ORAL SUSPENSION PEG SCH (09:53)
[2020-11-18] MEDS: PANTOPRAZOLE SODIUM 40 MG VIAL IVPUSH SCH (09:54)
[2020-11-18] MEDS: MIDODRINE HCL 5 MG TABLET PEG SCH ×4 (09:54→19:00)
[2020-11-18] MEDS: APIXABAN 2.5 MG TABLET PO SCH (09:54)
[2020-11-18] MEDS: GABAPENTIN 250 MG/5 ML ORAL SOLUTION, 470 ML BOTTLE PEG SCH ×2 (09:54→22:00)
[2020-11-18] MEDS: AMPICILLIN NA/SULBACTAM NA 3 GM in SODIUM CHLORIDE 100 ML IVPB SCH (09:55)
[2020-11-18] MEDS: FOLIC ACID 1 MG TABLET (FP) PEG SCH (09:55)
[2020-11-18] MEDS: ALPRAZolam 0.25 MG TABLET PO SCH (09:56)
[2020-11-18] MEDS ORDERED: FUROSEMIDE 40 MG/4 ML INJECTABLE VIAL IVPB ONE (10:19)
[2020-11-18] MEDS: NYSTATIN POWDER 100,000 UNITS/GM - 15 GM TOPICAL POWDER TP SCH ×2 (10:26→22:00)
[2020-11-18] MEDS ORDERED: ACETAMINOPHEN 650 MG/20.3 ML ORAL SOLUTION (CUPS) PEG PRN (18:00)
[2020-11-18] MEDS ORDERED: ALPRAZolam 1 MG TABLET PEG PRN (18:00)
[2020-11-18] MEDS ORDERED: DEXTROSE 5%-WATER - 1,000 ML IV SCH (18:00)
[2020-11-18] MEDS: ALPRAZolam 0.25 MG TABLET PEG SCH (21:57)
[2020-11-18] MEDS: APIXABAN 2.5 MG TABLET PEG SCH (21:58)
[2020-11-18] MEDS: QUEtiapine FUMARATE 25 MG TABLET PEG SCH (21:58)
[2020-11-18] MEDS ORDERED: CHLORHEXIDINE GLUCONATE 4% CLEANSER FOR DECOLONIZATION TP SCH (22:00)
[2020-11-19] MEDS: LEVOTHYROXINE NA 25 MCG TABLET (FP) GT SCH (06:02)
[2020-11-19] MEDS: ALBUTEROL SO4 2.5/IPRATROPIUM 0.5 INH SOL 3 ML VIAL.NEB. NEB SCH ×4 (08:39→20:51)
[2020-11-19 09:16] LABS: BASO % 0.4 % (0-2.0); EOS % 2.2 % (0-4.5); HEMOGLOBIN 8.3 GM/dL (10.7-15.3); LYMPH % 5.1 % (8-40); MCH 30.2 pg (25.7-33.7); MCHC 33.4 g/dl (32.0-36.0); MEAN CELL VOLUME 90.4 fl (80-96); MONO % 17.4 % (3.8-10.2); NEUT % 74.9 % (42.8-82.8); PLATELET COUNT 407 K/MM3 (134-434); RBC 2.76 M/mm3 (3.60-5.2); WHITE BLOOD COUNT 9.3 K/mm3 (4.0-10.0)
[2020-11-19] MEDS ORDERED: AMPICILLIN NA/SULBACTAM NA 3 GM in SODIUM CHLORIDE 100 ML IVPB SCH (10:00)
[2020-11-19 10:37] LABS: ALBUMIN 2.4 g/dl (3.4-5.0); BLOOD UREA NITROGEN 50.4 mg/dL (7-18); CALCIUM 9.9 mg/dL (8.5-10.1)
[2020-11-19 10:41] LABS: CREATININE 3.6 mg/dL (0.55-1.3)
[2020-11-19 10:42] LABS: BILIRUBIN,TOTAL 0.6 mg/dL (0.2-1)
[2020-11-19 10:43] LABS: TOT PROT 6.4 g/dl (6.4-8.2)
[2020-11-19] MEDS ORDERED: PT OWN MED DRAWER 7, Y5N ONE ×3 (11:14→21:51)
[2020-11-19] MEDS ORDERED: FUROSEMIDE 100 MG/10 ML INJECTABLE VIAL IVPB ONE (11:22)
[2020-11-19] MEDS: PANTOPRAZOLE SODIUM 40 MG VIAL IVPUSH SCH (11:23)
[2020-11-19] MEDS: MIDODRINE HCL 5 MG TABLET PEG SCH ×3 (11:23→19:00)
[2020-11-19] MEDS: FOLIC ACID 1 MG TABLET (FP) PEG SCH (11:24)
[2020-11-19] MEDS: APIXABAN 2.5 MG TABLET PEG SCH ×2 (11:24→21:56)
[2020-11-19] MEDS: ALPRAZolam 0.25 MG TABLET PEG SCH ×2 (11:25→21:55)
[2020-11-19] MEDS: ESCITALOPRAM OXALATE 5 MG/5 ML PEG SCH (11:26)
[2020-11-19] MEDS: FAMOTIDINE 40 MG/5 ML ORAL SUSPENSION PEG SCH (11:26)
[2020-11-19] MEDS: GABAPENTIN 250 MG/5 ML ORAL SOLUTION, 470 ML BOTTLE PEG SCH ×2 (11:26→21:55)
[2020-11-19] MEDS: NYSTATIN POWDER 100,000 UNITS/GM - 15 GM TOPICAL POWDER TP SCH ×2 (11:27→21:56)
[2020-11-19] MEDS ORDERED: ALBUMIN HUMAN 25% 12.5 GM/50 ML VIAL IVPB ONE (12:00)
[2020-11-19] MEDS ORDERED: FUROSEMIDE 40 MG/4 ML INJECTABLE VIAL IVPB ONE ×2 (12:30→20:00)
[2020-11-19 13:34] LABS: ANISOCYTOSIS 2+; MACROCYTOSIS 2+
[2020-11-19] MEDS: QUEtiapine FUMARATE 25 MG TABLET PEG SCH (21:56)
[2020-11-19] MEDS: MELATONIN 5 MG TABLETS PO PRN (21:58)
[2020-11-20] MEDS: LEVOTHYROXINE NA 25 MCG TABLET (FP) GT SCH (06:56)
[2020-11-20] MEDS: ALBUTEROL SO4 2.5/IPRATROPIUM 0.5 INH SOL 3 ML VIAL.NEB. NEB SCH ×2 (08:30→12:00)
[2020-11-20 08:48] LABS: BASO % 0.5 % (0-2.0); EOS % 1.9 % (0-4.5); HEMATOCRIT 24.5 % (32.4-45.2); LYMPH % 9.3 % (8-40); MCH 29.8 pg (25.7-33.7); MCHC 32.8 g/dl (32.0-36.0); MEAN CELL VOLUME 90.9 fl (80-96); MEAN PLT VOLUME 8.3 fl (7.5-11.1); MONO % 23.3 % (3.8-10.2); PLATELET COUNT 394 K/MM3 (134-434); RBC 2.69 M/mm3 (3.60-5.2); RDW 19.7 % (11.6-15.6); WHITE BLOOD COUNT 7.6 K/mm3 (4.0-10.0)
[2020-11-20 09:04] LABS: ALBUMIN 2.5 g/dl (3.4-5.0); BLOOD UREA NITROGEN 65.8 mg/dL (7-18); CALCIUM 10.6 mg/dL (8.5-10.1)
[2020-11-20 09:07] LABS: CREATININE 3.9 mg/dL (0.55-1.3); PHOSPHOROUS 5.5 mg/dL (2.5-4.9)
[2020-11-20 09:09] LABS: BILIRUBIN,TOTAL 0.4 mg/dL (0.2-1); TOT PROT 6.6 g/dl (6.4-8.2)
[2020-11-20] MEDS ORDERED: PT OWN MED DRAWER 7, Y5N ONE ×2 (10:54→22:41)
[2020-11-20] MEDS: AMANTADINE HCL 100MG/10 ML UNIT DOSE CUPS PEG SCH (10:56)
[2020-11-20] MEDS: PANTOPRAZOLE SODIUM 40 MG VIAL IVPUSH SCH (10:56)
[2020-11-20] MEDS: APIXABAN 2.5 MG TABLET PEG SCH ×2 (10:56→22:45)
[2020-11-20] MEDS: FAMOTIDINE 40 MG/5 ML ORAL SUSPENSION PEG SCH (10:57)
[2020-11-20] MEDS: ESCITALOPRAM OXALATE 5 MG/5 ML PEG SCH (10:57)
[2020-11-20] MEDS: GABAPENTIN 250 MG/5 ML ORAL SOLUTION, 470 ML BOTTLE PEG SCH ×2 (10:58→22:45)
[2020-11-20] MEDS: NYSTATIN POWDER 100,000 UNITS/GM - 15 GM TOPICAL POWDER TP SCH ×2 (10:58→22:45)
[2020-11-20] MEDS: FOLIC ACID 1 MG TABLET (FP) PEG SCH (10:58)
[2020-11-20] MEDS: MIDODRINE HCL 5 MG TABLET PEG SCH (10:59)
[2020-11-20] MEDS: ALPRAZolam 0.25 MG TABLET PEG SCH ×2 (11:00→22:45)
[2020-11-20 11:57] LABS: ANISOCYTOSIS 1+
[2020-11-20] MEDS ORDERED: FUROSEMIDE 100 MG/10 ML INJECTABLE VIAL IVPB SCH (12:15)
[2020-11-20] MEDS ORDERED: CHLORHEXIDINE GLUCONATE 0.12% 15ML CUP MM SCH (12:30)
[2020-11-20] MEDS ORDERED: FUROSEMIDE 40 MG/4 ML INJECTABLE VIAL IVPB SCH (14:53)
[2020-11-20] MEDS ORDERED: FUROSEMIDE 40 MG/4 ML INJECTABLE VIAL IVPB ONE (16:24)
[2020-11-20] MEDS: QUEtiapine FUMARATE 25 MG TABLET PEG SCH (22:45)
[2020-11-21] MEDS: LEVOTHYROXINE NA 25 MCG TABLET (FP) GT SCH (06:53)
[2020-11-21] MEDS: ALBUTEROL SO4 2.5/IPRATROPIUM 0.5 INH SOL 3 ML VIAL.NEB. NEB SCH ×4 (08:10→20:05)
[2020-11-21 09:14] LABS: BASO % 0.3 % (0-2.0); EOS % 2.3 % (0-4.5); HEMATOCRIT 25.4 % (32.4-45.2); HEMOGLOBIN 8.5 GM/dL (10.7-15.3); LYMPH % 9.1 % (8-40); MCH 30.4 pg (25.7-33.7); MCHC 33.4 g/dl (32.0-36.0); MEAN CELL VOLUME 90.8 fl (80-96); MEAN PLT VOLUME 8.1 fl (7.5-11.1); MONO % 24.4 % (3.8-10.2); NEUT % 63.9 % (42.8-82.8); PLATELET COUNT 419 K/MM3 (134-434); RDW 19.9 % (11.6-15.6); WHITE BLOOD COUNT 10.2 K/mm3 (4.0-10.0)
[2020-11-21 09:49] LABS: ALBUMIN 2.6 g/dl (3.4-5.0); BLOOD UREA NITROGEN 69.3 mg/dL (7-18); CALCIUM 10.5 mg/dL (8.5-10.1); MAGNESIUM 2.3 mg/dL (1.8-2.4)
[2020-11-21 09:52] LABS: CREATININE 4.2 mg/dL (0.55-1.3); PHOSPHOROUS 5.9 mg/dL (2.5-4.9)
[2020-11-21 09:53] LABS: BILIRUBIN,TOTAL 0.5 mg/dL (0.2-1); TOT PROT 7.2 g/dl (6.4-8.2)
[2020-11-21] MEDS ORDERED: PT OWN MED DRAWER 7, Y5N ONE (10:05)
[2020-11-21] MEDS: FOLIC ACID 1 MG TABLET (FP) PEG SCH (10:15)
[2020-11-21] MEDS: GABAPENTIN 250 MG/5 ML ORAL SOLUTION, 470 ML BOTTLE PEG SCH (10:15)
[2020-11-21] MEDS: APIXABAN 2.5 MG TABLET PEG SCH (10:15)
[2020-11-21] MEDS: ESCITALOPRAM OXALATE 5 MG/5 ML PEG SCH (10:15)
[2020-11-21] MEDS: PANTOPRAZOLE SODIUM 40 MG VIAL IVPUSH SCH (10:15)
[2020-11-21] MEDS: FAMOTIDINE 40 MG/5 ML ORAL SUSPENSION PEG SCH (10:15)
[2020-11-21] MEDS: NYSTATIN POWDER 100,000 UNITS/GM - 15 GM TOPICAL POWDER TP SCH (10:15)
[2020-11-21] MEDS: ALPRAZolam 0.25 MG TABLET PEG SCH (10:16)
[2020-11-21] MEDS ORDERED: SODIUM CHLORIDE 250 ML IV PRN ×2 (10:54→13:11)
[2020-11-21 11:33] LABS: ANISOCYTOSIS 1+; MACROCYTOSIS 0; PLATELET ESTIMATE NORMAL
[2020-11-21] MEDS: DEXTROSE 5%-WATER - 1,000 ML IV SCH (12:55)
[2020-11-21] MEDS: ALBUMIN HUMAN 25% 12.5 GM/50 ML VIAL IVPB SCH ×4 (15:30→17:00)
[2020-11-22] MEDS: GABAPENTIN 250 MG/5 ML ORAL SOLUTION, 470 ML BOTTLE PEG SCH ×3 (00:09→22:05)
[2020-11-22] MEDS: APIXABAN 2.5 MG TABLET PEG SCH ×3 (00:09→22:05)
[2020-11-22] MEDS: NYSTATIN POWDER 100,000 UNITS/GM - 15 GM TOPICAL POWDER TP SCH ×3 (00:09→22:14)
[2020-11-22] MEDS: ALPRAZolam 0.25 MG TABLET PEG SCH ×3 (00:10→22:05)
[2020-11-22] MEDS: QUEtiapine FUMARATE 25 MG TABLET PEG SCH ×2 (00:10→22:04)
[2020-11-22] MEDS: LEVOTHYROXINE NA 25 MCG TABLET (FP) GT SCH (06:08)
[2020-11-22] MEDS: ALBUTEROL SO4 2.5/IPRATROPIUM 0.5 INH SOL 3 ML VIAL.NEB. NEB SCH ×4 (09:00→20:49)
[2020-11-22 09:35] LABS: BASO % 0.3 % (0-2.0); HEMATOCRIT 21.7 % (32.4-45.2); HEMOGLOBIN 7.3 GM/dL (10.7-15.3); LYMPH % 8.9 % (8-40); MCH 30.4 pg (25.7-33.7); MCHC 33.7 g/dl (32.0-36.0); MEAN PLT VOLUME 8.3 fl (7.5-11.1); MONO % 25.7 % (3.8-10.2); NEUT % 63.1 % (42.8-82.8); PLATELET COUNT 333 K/MM3 (134-434); RBC 2.41 M/mm3 (3.60-5.2); RDW 20.2 % (11.6-15.6); WHITE BLOOD COUNT 9.2 K/mm3 (4.0-10.0)
[2020-11-22 10:11] LABS: ALBUMIN 2.2 g/dl (3.4-5.0); BLOOD UREA NITROGEN 46.4 mg/dL (7-18); CALCIUM 9.4 mg/dL (8.5-10.1)
[2020-11-22 10:14] LABS: CREATININE 3.1 mg/dL (0.55-1.3)
[2020-11-22 10:15] LABS: BILIRUBIN,TOTAL 0.6 mg/dL (0.2-1); TOT PROT 6.3 g/dl (6.4-8.2)
[2020-11-22] MEDS ORDERED: FUROSEMIDE 40 MG/4 ML INJECTABLE VIAL IVPUSH ONE ×2 (10:36→17:30)
[2020-11-22] MEDS ORDERED: PT OWN MED DRAWER 7, Y5N ONE (11:06)
[2020-11-22 13:04] LABS: ANISOCYTOSIS 1+; MACROCYTOSIS 1+; PLATELET ESTIMATE NORMAL
[2020-11-22] MEDS: DEXTROSE 5%-WATER - 1,000 ML IV SCH (13:59)
[2020-11-22] MEDS: FOLIC ACID 1 MG TABLET (FP) PEG SCH (16:24)
[2020-11-22] MEDS: ESCITALOPRAM OXALATE 5 MG/5 ML PEG SCH (16:25)
[2020-11-22] MEDS: PANTOPRAZOLE SODIUM 40 MG VIAL IVPUSH SCH (16:25)
[2020-11-22] MEDS: FAMOTIDINE 40 MG/5 ML ORAL SUSPENSION PEG SCH (16:25)
[2020-11-22] MEDS: AMANTADINE HCL 100MG/10 ML UNIT DOSE CUPS PEG SCH (16:26)
[2020-11-22] MEDS ORDERED: POTASSIUM CHLORIDE TABS 20 MEQ TABLET.ER (FP) PO ONE (17:41)
[2020-11-23] MEDS ORDERED: POTASSIUM CHLORIDE ORAL LIQUID 20 MEQ/15 ML GT ONE (03:45)
[2020-11-23 05:29] LABS: CALCIUM 9.2 mg/dL (8.5-10.1)
[2020-11-23 05:30] LABS: ALBUMIN 2.2 g/dl (3.4-5.0); BLOOD UREA NITROGEN 49.8 mg/dL (7-18)
[2020-11-23 05:33] LABS: CREATININE 3.3 mg/dL (0.55-1.3)
[2020-11-23 05:35] LABS: BILIRUBIN,TOTAL 0.5 mg/dL (0.2-1); TOT PROT 6.5 g/dl (6.4-8.2)
[2020-11-23 06:24] LABS: BASO % 0.5 % (0-2.0); HEMATOCRIT 26.6 % (32.4-45.2); LYMPH % 9.6 % (8-40); MCH 30.5 pg (25.7-33.7); MCHC 33.8 g/dl (32.0-36.0); MEAN CELL VOLUME 90.4 fl (80-96); MEAN PLT VOLUME 8.4 fl (7.5-11.1); MONO % 21.8 % (3.8-10.2); NEUT % 66.1 % (42.8-82.8); PLATELET COUNT 298 K/MM3 (134-434); RBC 2.94 M/mm3 (3.60-5.2); RDW 17.7 % (11.6-15.6); WHITE BLOOD COUNT 10.4 K/mm3 (4.0-10.0)
[2020-11-23] MEDS: LEVOTHYROXINE NA 25 MCG TABLET (FP) GT SCH (06:43)
[2020-11-23] MEDS: ALBUTEROL SO4 2.5/IPRATROPIUM 0.5 INH SOL 3 ML VIAL.NEB. NEB SCH ×3 (08:33→16:00)
[2020-11-23 09:55] LABS: ANISOCYTOSIS 1+; MACROCYTOSIS 1+; PLATELET ESTIMATE NORMAL
[2020-11-23] MEDS: NYSTATIN POWDER 100,000 UNITS/GM - 15 GM TOPICAL POWDER TP SCH ×2 (10:27→23:13)
[2020-11-23] MEDS: PANTOPRAZOLE SODIUM 40 MG VIAL IVPUSH SCH (10:27)
[2020-11-23] MEDS: GABAPENTIN 250 MG/5 ML ORAL SOLUTION, 470 ML BOTTLE PEG SCH ×2 (11:22→23:14)
[2020-11-23] MEDS: ESCITALOPRAM OXALATE 5 MG/5 ML PEG SCH (11:22)
[2020-11-23] MEDS: FOLIC ACID 1 MG TABLET (FP) PEG SCH (11:22)
[2020-11-23] MEDS: ALPRAZolam 0.25 MG TABLET PEG SCH ×2 (11:22→23:13)
[2020-11-23] MEDS: FAMOTIDINE 40 MG/5 ML ORAL SUSPENSION PEG SCH (11:22)
[2020-11-23] MEDS: APIXABAN 2.5 MG TABLET PEG SCH ×2 (11:22→23:12)
[2020-11-23] MEDS: KCL 10 MEQ IVPB 10 MEQ/100 ML INFUS.BAG IVPB SCH ×2 (11:51→13:25)
[2020-11-23] MEDS: DEXTROSE 5%-WATER - 1,000 ML IV SCH (13:25)
[2020-11-23] MEDS: MELATONIN 5 MG TABLETS PO PRN (23:12)
[2020-11-23] MEDS: QUEtiapine FUMARATE 25 MG TABLET PEG SCH (23:13)
[2020-11-24 06:11] LABS: CALCIUM 9.2 mg/dL (8.5-10.1)
[2020-11-24 06:12] LABS: ALBUMIN 2.2 g/dl (3.4-5.0); BLOOD UREA NITROGEN 56.2 mg/dL (7-18)
[2020-11-24 06:15] LABS: CREATININE 3.7 mg/dL (0.55-1.3)
[2020-11-24 06:17] LABS: BILIRUBIN,TOTAL 0.5 mg/dL (0.2-1); TOT PROT 6.4 g/dl (6.4-8.2)
[2020-11-24 06:33] LABS: BASO % 0.4 % (0-2.0); EOS % 1.8 % (0-4.5); HEMATOCRIT 28.2 % (32.4-45.2); HEMOGLOBIN 9.4 GM/dL (10.7-15.3); LYMPH % 8.3 % (8-40); MCH 30.4 pg (25.7-33.7); MCHC 33.2 g/dl (32.0-36.0); MEAN CELL VOLUME 91.3 fl (80-96); MEAN PLT VOLUME 8.7 fl (7.5-11.1); MONO % 19.1 % (3.8-10.2); NEUT % 70.4 % (42.8-82.8); PLATELET COUNT 306 K/MM3 (134-434); RBC 3.08 M/mm3 (3.60-5.2); RDW 18.6 % (11.6-15.6); WHITE BLOOD COUNT 9.4 K/mm3 (4.0-10.0)
[2020-11-24] MEDS: LEVOTHYROXINE NA 25 MCG TABLET (FP) GT SCH (06:56)
[2020-11-24 09:01] LABS: ANISOCYTOSIS 1+; PLATELET ESTIMATE NORMAL
[2020-11-24] MEDS ORDERED: PT OWN MED DRAWER 7, Y5N ONE ×4 (10:45→23:02)
[2020-11-24] MEDS: ALPRAZolam 0.25 MG TABLET PEG SCH ×2 (10:50→22:19)
[2020-11-24] MEDS: PANTOPRAZOLE SODIUM 40 MG VIAL IVPUSH SCH (10:50)
[2020-11-24] MEDS: APIXABAN 2.5 MG TABLET PEG SCH ×2 (10:50→22:18)
[2020-11-24] MEDS: FAMOTIDINE 40 MG/5 ML ORAL SUSPENSION PEG SCH (10:51)
[2020-11-24] MEDS: NYSTATIN POWDER 100,000 UNITS/GM - 15 GM TOPICAL POWDER TP SCH ×2 (10:51→22:18)
[2020-11-24] MEDS: FOLIC ACID 1 MG TABLET (FP) PEG SCH (10:51)
[2020-11-24] MEDS: AMANTADINE HCL 100MG/10 ML UNIT DOSE CUPS PEG SCH (10:51)
[2020-11-24] MEDS: ESCITALOPRAM OXALATE 5 MG/5 ML PEG SCH (10:51)
[2020-11-24] MEDS: GABAPENTIN 250 MG/5 ML ORAL SOLUTION, 470 ML BOTTLE PEG SCH ×2 (10:54→22:53)
[2020-11-24] MEDS: DEXTROSE 5%-WATER - 1,000 ML IV SCH (11:33)
[2020-11-24] MEDS: TORSEMIDE 20 MG TABLET (FP) PO SCH (15:34)
[2020-11-24] MEDS: QUEtiapine FUMARATE 25 MG TABLET PEG SCH (22:19)
[2020-11-25] MEDS: LEVOTHYROXINE NA 25 MCG TABLET (FP) GT SCH (06:55)
[2020-11-25] MEDS ORDERED: SODIUM CHLORIDE 250 ML IV PRN ×2 (08:45→11:55)
[2020-11-25] MEDS ORDERED: PT OWN MED DRAWER 7, Y5N ONE ×3 (09:50→22:10)
[2020-11-25] MEDS: TORSEMIDE 20 MG TABLET (FP) PO SCH (12:18)
[2020-11-25] MEDS: FOLIC ACID 1 MG TABLET (FP) PEG SCH ×2 (12:19→12:53)
[2020-11-25] MEDS: APIXABAN 2.5 MG TABLET PEG SCH ×3 (12:19→22:16)
[2020-11-25] MEDS: ESCITALOPRAM OXALATE 5 MG/5 ML PEG SCH ×2 (12:21→12:57)
[2020-11-25] MEDS: GABAPENTIN 250 MG/5 ML ORAL SOLUTION, 470 ML BOTTLE PEG SCH ×3 (12:22→22:16)
[2020-11-25] MEDS: FAMOTIDINE 40 MG/5 ML ORAL SUSPENSION PEG SCH ×2 (12:23→12:57)
[2020-11-25] MEDS: ALPRAZolam 0.25 MG TABLET PEG SCH ×3 (12:23→22:17)
[2020-11-25] MEDS: NYSTATIN POWDER 100,000 UNITS/GM - 15 GM TOPICAL POWDER TP SCH ×2 (12:23→22:16)
[2020-11-25] MEDS: PANTOPRAZOLE SODIUM 40 MG VIAL IVPUSH SCH (13:12)
[2020-11-25] MEDS: DEXTROSE 5%-WATER - 1,000 ML IV SCH (13:14)
[2020-11-25] MEDS ORDERED: MIDODRINE HCL 5 MG TABLET PO PRN (13:16)
[2020-11-25 14:46] LABS: HEMATOCRIT 27.9 % (32.4-45.2); HEMOGLOBIN 9.2 GM/dL (10.7-15.3); MCH 30.4 pg (25.7-33.7); MCHC 33.1 g/dl (32.0-36.0); MEAN PLT VOLUME 8.4 fl (7.5-11.1); PLATELET COUNT 279 K/MM3 (134-434); RBC 3.03 M/mm3 (3.60-5.2); RDW 18.7 % (11.6-15.6); WHITE BLOOD COUNT 8.6 K/mm3 (4.0-10.0)
[2020-11-25] MEDS ORDERED: ONDANSETRON 4 MG/2 ML VIAL IVPUSH PRN (15:18)
[2020-11-25 15:19] LABS: CALCIUM 9.8 mg/dL (8.5-10.1)
[2020-11-25 15:20] LABS: BLOOD UREA NITROGEN 66.1 mg/dL (7-18)
[2020-11-25 15:23] LABS: CREATININE 4.1 mg/dL (0.55-1.3); PHOSPHOROUS 5.2 mg/dL (2.5-4.9)
[2020-11-25] MEDS: QUEtiapine FUMARATE 25 MG TABLET PEG SCH (22:17)
[2020-11-26] MEDS ORDERED: SODIUM CHLORIDE 250 ML IV STA (04:05)
[2020-11-26] MEDS ORDERED: FUROSEMIDE 40 MG/4 ML INJECTABLE VIAL IVPUSH ONE ×2 (04:59→23:27)
[2020-11-26] MEDS: LEVOTHYROXINE NA 25 MCG TABLET (FP) GT SCH (06:49)
[2020-11-26 09:16] LABS: HEMATOCRIT 27.5 % (32.4-45.2); HEMOGLOBIN 9.3 GM/dL (10.7-15.3); MCH 30.6 pg (25.7-33.7); MCHC 33.6 g/dl (32.0-36.0); MEAN CELL VOLUME 90.9 fl (80-96); MEAN PLT VOLUME 8.4 fl (7.5-11.1); PLATELET COUNT 252 K/MM3 (134-434); RBC 3.03 M/mm3 (3.60-5.2); RDW 18.3 % (11.6-15.6); WHITE BLOOD COUNT 10.2 K/mm3 (4.0-10.0)
[2020-11-26 09:46] LABS: CALCIUM 9.1 mg/dL (8.5-10.1)
[2020-11-26 09:50] LABS: CREATININE 2.9 mg/dL (0.55-1.3); PHOSPHOROUS 3.8 mg/dL (2.5-4.9)
[2020-11-26 09:51] LABS: BLOOD UREA NITROGEN 37.7 mg/dL (7-18)
[2020-11-26] MEDS: ESCITALOPRAM OXALATE 5 MG/5 ML PEG SCH (11:49)
[2020-11-26] MEDS: FOLIC ACID 1 MG TABLET (FP) PEG SCH (11:49)
[2020-11-26] MEDS: APIXABAN 2.5 MG TABLET PEG SCH ×2 (11:49→21:45)
[2020-11-26] MEDS: TORSEMIDE 20 MG TABLET (FP) PO SCH (11:49)
[2020-11-26] MEDS: GABAPENTIN 250 MG/5 ML ORAL SOLUTION, 470 ML BOTTLE PEG SCH ×2 (11:49→22:08)
[2020-11-26] MEDS: ALPRAZolam 0.25 MG TABLET PEG SCH ×2 (11:50→22:09)
[2020-11-26] MEDS: NYSTATIN POWDER 100,000 UNITS/GM - 15 GM TOPICAL POWDER TP SCH ×2 (11:50→21:46)
[2020-11-26] MEDS: AMANTADINE HCL 100MG/10 ML UNIT DOSE CUPS PEG SCH (11:50)
[2020-11-26] MEDS: FAMOTIDINE 40 MG/5 ML ORAL SUSPENSION PEG SCH (11:50)
[2020-11-26] MEDS: PANTOPRAZOLE SODIUM 40 MG VIAL IVPUSH SCH (11:50)
[2020-11-26] MEDS ORDERED: PT OWN MED DRAWER 7, Y5N ONE (11:53)
[2020-11-26] MEDS: DEXTROSE 5%-WATER - 1,000 ML IV SCH (12:26)
[2020-11-26] MEDS: QUEtiapine FUMARATE 25 MG TABLET PEG SCH (21:46)
[2020-11-27] MEDS: LEVOTHYROXINE NA 25 MCG TABLET (FP) GT SCH (06:26)
[2020-11-27 08:56] LABS: BASO % 0.4 % (0-2.0); EOS % 1.2 % (0-4.5); HEMATOCRIT 25.6 % (32.4-45.2); HEMOGLOBIN 8.4 GM/dL (10.7-15.3); LYMPH % 6.4 % (8-40); MCH 29.8 pg (25.7-33.7); MCHC 32.7 g/dl (32.0-36.0); MEAN CELL VOLUME 91.1 fl (80-96); MEAN PLT VOLUME 8.7 fl (7.5-11.1); MONO % 12.5 % (3.8-10.2); NEUT % 79.5 % (42.8-82.8); PLATELET COUNT 234 K/MM3 (134-434); RBC 2.82 M/mm3 (3.60-5.2); RDW 18.5 % (11.6-15.6); WHITE BLOOD COUNT 13.2 K/mm3 (4.0-10.0)
[2020-11-27 09:14] LABS: ALBUMIN 2.1 g/dl (3.4-5.0); BLOOD UREA NITROGEN 45.8 mg/dL (7-18); CALCIUM 9.6 mg/dL (8.5-10.1)
[2020-11-27 09:16] LABS: BILIRUBIN,TOTAL 0.4 mg/dL (0.2-1); TOT PROT 6.5 g/dl (6.4-8.2)
[2020-11-27 09:17] LABS: CREATININE 3.3 mg/dL (0.55-1.3)
[2020-11-27] MEDS: TORSEMIDE 20 MG TABLET (FP) PO SCH (11:25)
[2020-11-27] MEDS: APIXABAN 2.5 MG TABLET PEG SCH ×2 (11:26→22:55)
[2020-11-27] MEDS ORDERED: PT OWN MED DRAWER 7, Y5N ONE (11:36)
[2020-11-27] MEDS: FOLIC ACID 1 MG TABLET (FP) PEG SCH (11:38)
[2020-11-27] MEDS: ESCITALOPRAM OXALATE 5 MG/5 ML PEG SCH (11:40)
[2020-11-27] MEDS: GABAPENTIN 250 MG/5 ML ORAL SOLUTION, 470 ML BOTTLE PEG SCH ×2 (11:41→22:55)
[2020-11-27] MEDS: FAMOTIDINE 40 MG/5 ML ORAL SUSPENSION PEG SCH (11:42)
[2020-11-27] MEDS: PANTOPRAZOLE SODIUM 40 MG VIAL IVPUSH SCH (11:43)
[2020-11-27] MEDS: ALPRAZolam 0.25 MG TABLET PEG SCH (11:43)
[2020-11-27] MEDS: DEXTROSE 5%-WATER - 1,000 ML IV SCH ×2 (11:43→19:22)
[2020-11-27 11:50] LABS: ANISOCYTOSIS 1+; MACROCYTOSIS 1+; OVALOCYTE 1+; PLATELET ESTIMATE NORMAL; TOXIC GRANULATION 1+
[2020-11-27] MEDS ORDERED: ALPRAZolam 0.25 MG TABLET PEG PRN ×2 (12:06→14:58)
[2020-11-27] MEDS: NYSTATIN POWDER 100,000 UNITS/GM - 15 GM TOPICAL POWDER TP SCH ×2 (13:22→22:55)
[2020-11-27] MEDS ORDERED: LIDOCAINE HCL 1%, 10 MG/ML (20ML VIAL) INF ONE ×2 (13:45)
[2020-11-27] MEDS ORDERED: ONDANSETRON 4 MG/2 ML VIAL IVPUSH PRN (14:58)
[2020-11-27] MEDS ORDERED: MELATONIN 5 MG TABLETS PO PRN (14:58)
[2020-11-27] MEDS ORDERED: DEXTROSE 5%-WATER - 1,000 ML IV SCH (14:58)
[2020-11-27] MEDS ORDERED: MELATONIN 5 MG TABLETS NR PRN (15:39)
[2020-11-27] MEDS ORDERED: SODIUM CHLORIDE 250 ML IV PRN (16:39)
[2020-11-27] MEDS: QUEtiapine FUMARATE 25 MG TABLET PEG SCH (22:55)
[2020-11-27] MEDS ORDERED: DEXTROSE 50%-WATER - 25 GM/50 ML VIAL IVPUSH ONE (23:17)
[2020-11-27] MEDS ORDERED: DEXTROSE 50%-WATER - 25 GM/50 ML VIAL ONE (23:59)
[2020-11-28] MEDS: LEVOTHYROXINE NA 25 MCG TABLET (FP) GT SCH (06:37)
[2020-11-28] MEDS: FAMOTIDINE 40 MG/5 ML ORAL SUSPENSION PEG SCH (11:16)
[2020-11-28] MEDS: ESCITALOPRAM OXALATE 5 MG/5 ML PEG SCH (11:16)
[2020-11-28] MEDS: NYSTATIN POWDER 100,000 UNITS/GM - 15 GM TOPICAL POWDER TP SCH ×2 (11:17→21:37)
[2020-11-28] MEDS: GABAPENTIN 250 MG/5 ML ORAL SOLUTION, 470 ML BOTTLE PEG SCH ×2 (11:17→21:37)
[2020-11-28] MEDS: PANTOPRAZOLE SODIUM 40 MG VIAL IVPUSH SCH (11:18)
[2020-11-28] MEDS: APIXABAN 2.5 MG TABLET PEG SCH ×2 (11:19→21:36)
[2020-11-28] MEDS: FOLIC ACID 1 MG TABLET (FP) PEG SCH (11:19)
[2020-11-28] MEDS: AMANTADINE HCL 100MG/10 ML UNIT DOSE CUPS PEG SCH (11:21)
[2020-11-28] MEDS: MIDODRINE HCL 5 MG TABLET GT PRN (12:15)
[2020-11-28] MEDS: ALBUMIN HUMAN 25% 12.5 GM/50 ML VIAL IVPB SCH ×4 (13:00→15:00)
[2020-11-28 13:47] LABS: HEMOGLOBIN 8.2 GM/dL (10.7-15.3); MEAN CELL VOLUME 90.7 fl (80-96); MEAN PLT VOLUME 8.4 fl (7.5-11.1); PLATELET COUNT 232 K/MM3 (134-434); RBC 2.75 M/mm3 (3.60-5.2); RDW 18.1 % (11.6-15.6); WHITE BLOOD COUNT 14.4 K/mm3 (4.0-10.0)
[2020-11-28 14:17] LABS: BLOOD UREA NITROGEN 55.7 mg/dL (7-18); CALCIUM 9.2 mg/dL (8.5-10.1)
[2020-11-28 14:20] LABS: CREATININE 4.1 mg/dL (0.55-1.3); PHOSPHOROUS 4.6 mg/dL (2.5-4.9)
[2020-11-28] MEDS: ACETAMINOPHEN 650 MG/20.3 ML ORAL SOLUTION (CUPS) PEG PRN (15:32)
[2020-11-28] MEDS: TORSEMIDE 20 MG TABLET (FP) NR SCH (17:33)
[2020-11-28] MEDS ORDERED: PT OWN MED DRAWER 7, Y5N ONE (21:32)
[2020-11-28] MEDS: QUEtiapine FUMARATE 25 MG TABLET PEG SCH (21:38)
[2020-11-28] MEDS: DEXTROSE 5%-WATER - 1,000 ML IV SCH (22:07)
[2020-11-29] MEDS: LEVOTHYROXINE NA 25 MCG TABLET (FP) GT SCH (06:04)
[2020-11-29 09:42] LABS: EOS % 1.1 % (0-4.5); HEMATOCRIT 24.6 % (32.4-45.2); HEMOGLOBIN 8.3 GM/dL (10.7-15.3); LYMPH % 6.2 % (8-40); MCH 30.4 pg (25.7-33.7); MCHC 33.5 g/dl (32.0-36.0); MEAN CELL VOLUME 90.7 fl (80-96); MEAN PLT VOLUME 8.5 fl (7.5-11.1); MONO % 10.7 % (3.8-10.2); NEUT % 81.4 % (42.8-82.8); PLATELET COUNT 210 K/MM3 (134-434); RBC 2.72 M/mm3 (3.60-5.2); RDW 18.4 % (11.6-15.6); WHITE BLOOD COUNT 14.6 K/mm3 (4.0-10.0)
[2020-11-29 09:43] LABS: BASO % 0.6 % (0-2.0)
[2020-11-29 09:52] LABS: CALCIUM 8.7 mg/dL (8.5-10.1)
[2020-11-29 09:54] LABS: BLOOD UREA NITROGEN 34.2 mg/dL (7-18)
[2020-11-29 09:59] LABS: BILIRUBIN,TOTAL 0.7 mg/dL (0.2-1); TOT PROT 6.8 g/dl (6.4-8.2)
[2020-11-29] MEDS ORDERED: PT OWN MED DRAWER 7, Y5N ONE (10:00)
[2020-11-29 10:02] LABS: ALBUMIN 2.6 g/dl (3.4-5.0)
[2020-11-29] MEDS: TORSEMIDE 20 MG TABLET (FP) NR SCH (10:14)
[2020-11-29] MEDS: FOLIC ACID 1 MG TABLET (FP) PEG SCH (10:15)
[2020-11-29] MEDS: FAMOTIDINE 40 MG/5 ML ORAL SUSPENSION PEG SCH (10:15)
[2020-11-29] MEDS: ESCITALOPRAM OXALATE 5 MG/5 ML PEG SCH (10:15)
[2020-11-29] MEDS: PANTOPRAZOLE SODIUM 40 MG VIAL IVPUSH SCH (10:15)
[2020-11-29] MEDS: APIXABAN 2.5 MG TABLET PEG SCH ×2 (10:15→22:43)
[2020-11-29] MEDS: NYSTATIN POWDER 100,000 UNITS/GM - 15 GM TOPICAL POWDER TP SCH ×2 (10:16→22:43)
[2020-11-29] MEDS: GABAPENTIN 250 MG/5 ML ORAL SOLUTION, 470 ML BOTTLE PEG SCH ×2 (10:17→22:43)
[2020-11-29] MEDS: QUEtiapine FUMARATE 25 MG TABLET PEG SCH (22:43)
[2020-11-30] MEDS: LEVOTHYROXINE NA 25 MCG TABLET (FP) GT SCH (06:05)
[2020-11-30 08:46] LABS: BASO % 0.3 % (0-2.0); EOS % 1.4 % (0-4.5); HEMATOCRIT 23.6 % (32.4-45.2); HEMOGLOBIN 7.7 GM/dL (10.7-15.3); LYMPH % 6.5 % (8-40); MCH 29.7 pg (25.7-33.7); MCHC 32.7 g/dl (32.0-36.0); MEAN CELL VOLUME 90.9 fl (80-96); MEAN PLT VOLUME 8.5 fl (7.5-11.1); MONO % 11.6 % (3.8-10.2); NEUT % 80.2 % (42.8-82.8); PLATELET COUNT 207 K/MM3 (134-434); RBC 2.59 M/mm3 (3.60-5.2); RDW 18.4 % (11.6-15.6); WHITE BLOOD COUNT 12.2 K/mm3 (4.0-10.0)
[2020-11-30 09:18] LABS: ALBUMIN 2.4 g/dl (3.4-5.0); BLOOD UREA NITROGEN 44.7 mg/dL (7-18); CALCIUM 9.1 mg/dL (8.5-10.1)
[2020-11-30 09:21] LABS: CREATININE 3.3 mg/dL (0.55-1.3)
[2020-11-30 09:22] LABS: BILIRUBIN,TOTAL 0.4 mg/dL (0.2-1); TOT PROT 6.4 g/dl (6.4-8.2)
[2020-11-30 10:44] LABS: ANISOCYTOSIS 0; MACROCYTOSIS 0; PLATELET ESTIMATE NORMAL; TARGET CELLS 1+
[2020-11-30] MEDS: ESCITALOPRAM OXALATE 5 MG/5 ML PEG SCH (12:40)
[2020-11-30] MEDS: TORSEMIDE 20 MG TABLET (FP) NR SCH (12:40)
[2020-11-30] MEDS: FOLIC ACID 1 MG TABLET (FP) PEG SCH (12:40)
[2020-11-30] MEDS: GABAPENTIN 250 MG/5 ML ORAL SOLUTION, 470 ML BOTTLE PEG SCH ×2 (12:40→23:25)
[2020-11-30] MEDS: APIXABAN 2.5 MG TABLET PEG SCH ×2 (12:40→23:25)
[2020-11-30] MEDS: NYSTATIN POWDER 100,000 UNITS/GM - 15 GM TOPICAL POWDER TP SCH ×2 (12:41→23:26)
[2020-11-30] MEDS: FAMOTIDINE 20 MG/50 ML IVPB 10 MG/25 ML MG IVPB SCH (12:41)
[2020-11-30] MEDS: AMANTADINE HCL 100MG/10 ML UNIT DOSE CUPS PEG SCH (12:41)
[2020-11-30] MEDS: FAMOTIDINE 40 MG/5 ML ORAL SUSPENSION PEG SCH (14:30)
[2020-11-30] MEDS: PANTOPRAZOLE SODIUM 40 MG VIAL IVPUSH SCH (14:30)
[2020-11-30] MEDS: LEVOTHYROXINE SODIUM 100 MCG VIAL IVPUSH SCH (14:31)
[2020-11-30] MEDS: QUEtiapine FUMARATE 25 MG TABLET PEG SCH (23:25)
[2020-12-01] MEDS: LEVOTHYROXINE NA 25 MCG TABLET (FP) GT SCH (07:42)
[2020-12-01] MEDS: APIXABAN 2.5 MG TABLET PEG SCH (11:35)
[2020-12-01] MEDS: TORSEMIDE 20 MG TABLET (FP) NR SCH (11:35)
[2020-12-01] MEDS: ESCITALOPRAM OXALATE 5 MG/5 ML PEG SCH (11:36)
[2020-12-01] MEDS: GABAPENTIN 250 MG/5 ML ORAL SOLUTION, 470 ML BOTTLE PEG SCH ×2 (11:36→22:19)
[2020-12-01] MEDS: FOLIC ACID 1 MG TABLET (FP) PEG SCH (11:36)
[2020-12-01] MEDS ORDERED: PT OWN MED DRAWER 7, Y5N ONE (11:43)
[2020-12-01] MEDS: NYSTATIN POWDER 100,000 UNITS/GM - 15 GM TOPICAL POWDER TP SCH ×2 (11:59→22:19)
[2020-12-01] MEDS: FAMOTIDINE 20 MG/50 ML IVPB 10 MG/25 ML MG IVPB SCH (11:59)
[2020-12-01] MEDS: LEVOTHYROXINE SODIUM 100 MCG VIAL IVPUSH SCH (11:59)
[2020-12-01] MEDS: DEXTROSE 5%-WATER - 1,000 ML IV SCH (12:06)
[2020-12-01] MEDS: ALBUMIN HUMAN 25% 12.5 GM/50 ML VIAL IVPB SCH ×4 (18:30→20:00)
[2020-12-01] MEDS ORDERED: SODIUM CHLORIDE 250 ML IV PRN (19:08)
[2020-12-01 19:55] LABS: HEMATOCRIT 25.6 % (32.4-45.2); HEMOGLOBIN 8.4 GM/dL (10.7-15.3); MCHC 32.7 g/dl (32.0-36.0); MEAN CELL VOLUME 91.9 fl (80-96); MEAN PLT VOLUME 8.5 fl (7.5-11.1); PLATELET COUNT 283 K/MM3 (134-434); RBC 2.79 M/mm3 (3.60-5.2); RDW 17.6 % (11.6-15.6); WHITE BLOOD COUNT 13.4 K/mm3 (4.0-10.0)
[2020-12-01 20:14] LABS: CALCIUM 9.2 mg/dL (8.5-10.1)
[2020-12-01 20:15] LABS: BLOOD UREA NITROGEN 56.2 mg/dL (7-18)
[2020-12-01 20:18] LABS: PHOSPHOROUS 5.3 mg/dL (2.5-4.9)
[2020-12-01] MEDS: QUEtiapine FUMARATE 25 MG TABLET PEG SCH (22:20)
[2020-12-02] MEDS: DEXTROSE 5%-WATER - 1,000 ML IV SCH ×2 (03:02→09:35)
[2020-12-02] MEDS: LEVOTHYROXINE NA 25 MCG TABLET (FP) GT SCH (06:31)
[2020-12-02] MEDS: GABAPENTIN 250 MG/5 ML ORAL SOLUTION, 470 ML BOTTLE PEG SCH ×3 (09:35→22:43)
[2020-12-02] MEDS: ESCITALOPRAM OXALATE 5 MG/5 ML PEG SCH (09:35)
[2020-12-02] MEDS: FOLIC ACID 1 MG TABLET (FP) PEG SCH (09:35)
[2020-12-02] MEDS: AMANTADINE HCL 100MG/10 ML UNIT DOSE CUPS PEG SCH (09:35)
[2020-12-02] MEDS: TORSEMIDE 20 MG TABLET (FP) NR SCH (09:35)
[2020-12-02] MEDS ORDERED: PT OWN MED DRAWER 7, Y5N ONE (09:43)
[2020-12-02 09:54] LABS: BASO % 0.3 % (0-2.0); EOS % 1.3 % (0-4.5); HEMATOCRIT 23.5 % (32.4-45.2); HEMOGLOBIN 7.6 GM/dL (10.7-15.3); LYMPH % 5.2 % (8-40); MCH 29.8 pg (25.7-33.7); MCHC 32.4 g/dl (32.0-36.0); MEAN CELL VOLUME 91.9 fl (80-96); MEAN PLT VOLUME 8.4 fl (7.5-11.1); MONO % 12.9 % (3.8-10.2); NEUT % 80.3 % (42.8-82.8); PLATELET COUNT 256 K/MM3 (134-434); RBC 2.56 M/mm3 (3.60-5.2); RDW 17.9 % (11.6-15.6); WHITE BLOOD COUNT 11.1 K/mm3 (4.0-10.0)
[2020-12-02] MEDS: NYSTATIN POWDER 100,000 UNITS/GM - 15 GM TOPICAL POWDER TP SCH ×2 (10:03→22:01)
[2020-12-02] MEDS: LEVOTHYROXINE SODIUM 100 MCG VIAL IVPUSH SCH (10:03)
[2020-12-02] MEDS: FAMOTIDINE 20 MG/50 ML IVPB 10 MG/25 ML MG IVPB SCH (10:03)
[2020-12-02 10:15] LABS: ALBUMIN 2.7 g/dl (3.4-5.0); CALCIUM 9.4 mg/dL (8.5-10.1)
[2020-12-02 10:17] LABS: CREATININE 2.4 mg/dL (0.55-1.3)
[2020-12-02 10:19] LABS: BILIRUBIN,TOTAL 0.6 mg/dL (0.2-1); TOT PROT 6.8 g/dl (6.4-8.2)
[2020-12-02] MEDS: ACETAMINOPHEN 650 MG/20.3 ML ORAL SOLUTION (CUPS) PEG PRN (18:01)
[2020-12-02 19:21] LABS: BF WBC & OTHER NUCLEATED CELLS 1233 /mm3
[2020-12-02] MEDS: QUEtiapine FUMARATE 25 MG TABLET PEG SCH ×2 (22:00→22:43)
[2020-12-03] MEDS: LEVOTHYROXINE NA 25 MCG TABLET (FP) GT SCH (06:33)
[2020-12-03 09:11] LABS: BODY FLUID MACROPHAGES 21 %; BODY FLUID MESOTHELIAL 4 %; BODY FLUID MONOCYTE 13 %
[2020-12-03] MEDS: MIDODRINE HCL 5 MG TABLET GT PRN (09:30)
[2020-12-03] MEDS: ALBUMIN HUMAN 25% 12.5 GM/50 ML VIAL IVPB SCH ×5 (10:00→12:35)
[2020-12-03] MEDS ORDERED: SODIUM CHLORIDE 250 ML IV PRN ×4 (10:26→10:27)
[2020-12-03] MEDS ORDERED: EPOETIN ALFA-EPBX 10,000 UNIT/ML VIAL IVPUSH ONE (10:45)
[2020-12-03] MEDS ORDERED: ALBUMIN HUMAN 25% 12.5 GM/50 ML VIAL IVPB SCH (10:45)
[2020-12-03 10:46] LABS: HEMATOCRIT 25.2 % (32.4-45.2); HEMOGLOBIN 8.3 GM/dL (10.7-15.3); MCH 30.4 pg (25.7-33.7); MEAN PLT VOLUME 8.2 fl (7.5-11.1); PLATELET COUNT 271 K/MM3 (134-434); RBC 2.75 M/mm3 (3.60-5.2); RDW 17.8 % (11.6-15.6); WHITE BLOOD COUNT 11.8 K/mm3 (4.0-10.0)
[2020-12-03] MEDS: GABAPENTIN 250 MG/5 ML ORAL SOLUTION, 470 ML BOTTLE PEG SCH ×2 (10:53→21:52)
[2020-12-03 11:14] LABS: ALBUMIN 2.4 g/dl (3.4-5.0); CALCIUM 8.9 mg/dL (8.5-10.1)
[2020-12-03 11:15] LABS: BLOOD UREA NITROGEN 26.9 mg/dL (7-18)
[2020-12-03 11:18] LABS: CREATININE 3.3 mg/dL (0.55-1.3)
[2020-12-03 11:19] LABS: BILIRUBIN,TOTAL 0.4 mg/dL (0.2-1); TOT PROT 6.6 g/dl (6.4-8.2)
[2020-12-03] MEDS: TORSEMIDE 20 MG TABLET (FP) NR SCH (11:31)
[2020-12-03] MEDS: LEVOTHYROXINE SODIUM 100 MCG VIAL IVPUSH SCH (11:48)
[2020-12-03] MEDS ORDERED: PT OWN MED DRAWER 7, Y5N ONE (15:47)
[2020-12-03] MEDS ORDERED: DEXTROSE 5%-WATER 100 ML IVPB ONE (15:48)
[2020-12-03] MEDS: NYSTATIN POWDER 100,000 UNITS/GM - 15 GM TOPICAL POWDER TP SCH ×2 (15:53→21:52)
[2020-12-03] MEDS: FAMOTIDINE 20 MG/50 ML IVPB 10 MG/25 ML MG IVPB SCH (15:54)
[2020-12-03] MEDS: CEFTRIAXONE 2 GM in DEXTROSE 5%-WATER 100 ML IVPB SCH (16:41)
[2020-12-03] MEDS: FOLIC ACID 1 MG TABLET (FP) PEG SCH (16:41)
[2020-12-03] MEDS: ESCITALOPRAM OXALATE 5 MG/5 ML PEG SCH (16:41)
[2020-12-03] MEDS: QUEtiapine FUMARATE 25 MG TABLET PEG SCH (21:52)
[2020-12-04] MEDS: LEVOTHYROXINE NA 25 MCG TABLET (FP) GT SCH (06:22)
[2020-12-04] MEDS ORDERED: PT OWN MED DRAWER 7, Y5N ONE (10:17)
[2020-12-04] MEDS ORDERED: DEXTROSE 5%-WATER 100 ML IVPB ONE (10:18)
[2020-12-04] MEDS: CEFTRIAXONE 2 GM in DEXTROSE 5%-WATER 100 ML IVPB SCH (10:35)
[2020-12-04] MEDS: ESCITALOPRAM OXALATE 5 MG/5 ML PEG SCH (10:36)
[2020-12-04] MEDS: FAMOTIDINE 20 MG/50 ML IVPB 10 MG/25 ML MG IVPB SCH (10:36)
[2020-12-04] MEDS: FOLIC ACID 1 MG TABLET (FP) PEG SCH (10:36)
[2020-12-04] MEDS: TORSEMIDE 20 MG TABLET (FP) NR SCH (10:36)
[2020-12-04] MEDS: APIXABAN 2.5 MG TABLET PEG SCH (10:36)
[2020-12-04] MEDS: AMANTADINE HCL 100MG/10 ML UNIT DOSE CUPS PEG SCH (10:37)
[2020-12-04] MEDS: NYSTATIN POWDER 100,000 UNITS/GM - 15 GM TOPICAL POWDER TP SCH (10:37)
[2020-12-04] MEDS: LEVOTHYROXINE SODIUM 100 MCG VIAL IVPUSH SCH ×2 (10:37→11:01)
[2020-12-04] MEDS: GABAPENTIN 250 MG/5 ML ORAL SOLUTION, 470 ML BOTTLE PEG SCH (10:39)
[2020-12-04 12:27] LABS: CALCIUM 9.2 mg/dL (8.5-10.1)
[2020-12-04 12:31] LABS: CREATININE 2.5 mg/dL (0.55-1.3)
[2020-12-04 12:32] LABS: BILIRUBIN,TOTAL 0.4 mg/dL (0.2-1); TOT PROT 7.3 g/dl (6.4-8.2)
[2020-12-04 12:39] LABS: ALBUMIN 3.1 g/dl (3.4-5.0)
[2020-12-04 15:00] VITALS: BP 130/69; PULSE 95; TEMP 99
[2020-12-04] MEDS ORDERED: SODIUM CHLORIDE 250 ML IV PRN (15:47)
[2020-12-04 17:07] LABS: BODY FLUID ALBUMIN 2.6 g/dL (Not Estab.)
[2020-12-05] MEDS ORDERED: ALBUMIN HUMAN 25% 12.5 GM/50 ML VIAL IVPB SCH (08:00)
[2020-12-05] MEDS ORDERED: EPOETIN ALFA-EPBX 10,000 UNIT/ML VIAL IVPUSH ONE (08:00)
== END 2020-12-04 15:36 | DRG 682 ==
LOC: JER 12:46 → JERBED 16:42 → J5S 23:58 → JICU 11-11 15:42 → J5S 11-18 17:43
PROVIDERS: ADMIT Family Medicine; ATTEND Family Medicine
PROC: 5A1955Z Respiratory Ventilation, Greater than 96 Consecutive Hours (ICD-10-PCS; principal; 2020-10-30)
PROC: 3E0G76Z Introduction of Nutritional Substance into Upper GI, Via Natural or Artificial Opening (ICD-10-PCS; 2020-10-30)
PROC: 05HY33Z Insertion of Infusion Device into Upper Vein, Percutaneous Approach (ICD-10-PCS; 2020-10-31)
PROC: 30233N1 Transfusion of Nonautologous Red Blood Cells into Peripheral Vein, Percutaneous Approach (ICD-10-PCS; 2020-11-05)
PROC: 05HY33Z Insertion of Infusion Device into Upper Vein, Percutaneous Approach (ICD-10-PCS; 2020-11-10)
PROC: 05HM33Z Insertion of Infusion Device into Right Internal Jugular Vein, Percutaneous Approach (ICD-10-PCS; 2020-11-11)
PROC: B543ZZA Ultrasonography of Right Jugular Veins, Guidance (ICD-10-PCS; 2020-11-11)
PROC: 05HY33Z Insertion of Infusion Device into Upper Vein, Percutaneous Approach (ICD-10-PCS; 2020-11-27)
PROC: 0D20XUZ Change Feeding Device in Upper Intestinal Tract, External Approach (ICD-10-PCS; 2020-11-30)
PROC: 0W9G30Z Drainage of Peritoneal Cavity with Drainage Device, Percutaneous Approach (ICD-10-PCS; 2020-12-02)
PROC: 5A1D70Z Performance of Urinary Filtration, Intermittent, Less than 6 Hours Per Day (ICD-10-PCS; 2020-12-03)
DX: N17.0 Acute kidney failure with tubular necrosis (principal); A41.9 Sepsis, unspecified organism; R65.21 Severe sepsis with septic shock; K65.2 Spontaneous bacterial peritonitis; J95.01 Hemorrhage from tracheostomy stoma; J96.10 Chronic respiratory failure, unspecified whether with hypoxia or hypercapnia; N39.0 Urinary tract infection, site not specified; A04.72 Enterocolitis due to Clostridium difficile, not specified as recurrent; I82.409 Acute embolism and thrombosis of unspecified deep veins of unspecified lower extremity; R18.8 Other ascites; Z99.11 Dependence on respirator [ventilator] status; T85.528A Displacement of other gastrointestinal prosthetic devices, implants and grafts, initial encounter; N18.6 End stage renal disease; Y83.9 Surgical procedure, unspecified as the cause of abnormal reaction of the patient, or of later complication, without mention of misadventure at the time of the procedure; E87.70 Fluid overload, unspecified; D64.9 Anemia, unspecified; B94.8 Sequelae of other specified infectious and parasitic diseases; R50.9 Fever, unspecified; J44.9 Chronic obstructive pulmonary disease, unspecified; E03.9 Hypothyroidism, unspecified; R94.5 Abnormal results of liver function studies; I95.9 Hypotension, unspecified; D72.829 Elevated white blood cell count, unspecified; G20 Parkinson's disease
CPT/HCPCS: 36415; 36430; 36511; 36600; 49406; 49450; 70450-TC; 71045-TC-FY; 71250-TC; 74018-TC-FY; 74176-TC; 74190-TC-FY; 76000-TC-FY; 76775-TC; 80048; 80053; 81003; 82042; 82150; 82272; 82550; 82565; 82803; 82945; 82962; 82977; 83036; 83520; 83605; 83615; 83735; 83970; 83986; 84100; 84156; 84157; 84300; 84443; 84478; 84484; 84540; 85025; 85027; 85045; 85379; 85384; 85610; 85730; 86038; 86140; 86256; 86803; 86850; 86900; 86901; 86922; 87040; 87070; 87075; 87077; 87086; 87102; 87116; 87186; 87205; 87206; 87210; 87324; 87340; 87449; 88108; 88305-TC; 93005; 93010; 93308; 93970-TC; 93971; 93975; 94002; 94640; 94760; 97116-GP; 97162-GP; 99285-25; C1769; C9803; J0131; J1439; J1756; P9038; P9047; P9058; Q5106; U0003; U0005